=== PATIENT | female | born 1955 | race Two or more races ===

== ENCOUNTER 2020-10-17 06:55 | Outpatient (REF) | payer OTHER, SELFPAY ==
[2020-10-17 11:05] LABS: Alanine Aminotransferase 17 U/L (0-31); Albumin Level 3.8 g/dL (3.5-5.0); Alkaline Phosphatase 94 U/L (39-117); Anion Gap 12 (12-20); Aspartate Amino Transferase 16 U/L (5-31); Bilirubin Total 0.8 mg/dL (0.0-1.0); Blood Urea Nitrogen 18 mg/dL (9-16); Calcium 8.5 mg/dL (8.4-10.2); Carbon Dioxide 27 mmol/L (22-29); Chloride 107 mmol/L (96-108); Cholesterol 156 mg/dL; Estimated Glomerular Filt Rate > 60; Glucose Fasting 98 mg/dL (60-99); HDL Cholesterol 47 mg/dL; LDL Cholesterol Calculated 85 mg/dl; Potassium 3.7 mmol/l (3.3-5.1); Sodium 142 mmol/L (135-145); Total Protein 5.9 g/dL (6.5-8.0); Triglycerides 122 mg/dL
[2020-10-17 11:25] LABS: Thyroid Stimulating Hormone 0.39 uIU/mL (0.32-4.0)
== END 2020-10-17 06:56 | disposition home or self-care (01) ==
LOC: HO.LAB 06:55
PROVIDERS: Visit Provider Internal Medicine
DX: I10 Essential (primary) hypertension (principal); E55.9 Vitamin D deficiency, unspecified; E03.9 Hypothyroidism, unspecified; Z20.828 Contact with and (suspected) exposure to other viral communicable diseases
CPT/HCPCS: 80053; 80061; 82306; 84443; C9803; U0003

== ENCOUNTER 2020-12-15 17:23 | Outpatient (REF) | payer OTHER, SELFPAY ==
[2020-12-15 18:13] LABS: Rheumatoid Factor < 15.0 IU/mL (<15.0)
== END 2020-12-15 17:24 | disposition home or self-care (01) ==
LOC: HO.LAB 17:23
PROVIDERS: PCP Internal Medicine; Visit Provider Nurse Practitioner Family
DX: M19.90 Unspecified osteoarthritis, unspecified site (principal)
CPT/HCPCS: 36415; 86431

== ENCOUNTER 2021-03-01 12:44 | Outpatient (REF) | payer OTHER, SELFPAY ==
--- NOTE | ~2021-03-01 | MM_ITS ---
EXAMINATION: BONE DENSITOMETRY CLINICAL INDICATION: Asymptomatic menopausal state. COMPARISON: This is the patient's baseline examination. TECHNIQUE: Using a [employer] DXA System (software version: 13.1) manufactured by [employer], dual-energy x-ray absorptiometry was performed of the lumbar spine and left hip. The images are of good technical quality. Summary results are attached. FINDINGS: AP SPINE L1-L4: There is mild scoliosis lumbar spine convex right. BMD 1.033 g/cm2, Z-score 0.7, T-score -1.2, osteopenia. LEFT FEMUR, NECK: BMD 0.840 g/cm2, Z-score 0.2, T-score -1.4, osteopenia. LEFT FEMUR, TOTAL: BMD 0.981 g/cm2, Z-score 1.2, T-score -0.2, normal. IDENTIFIED RISK FACTORS: Menopause, hysterectomy, left oophorectomy, secondary osteoporosis. HISTORY OF FRACTURE: None listed. MEDICATIONS: Vitamin D. MM/XR DEXA axial skeleton IMPRESSION: 1. DIAGNOSIS: Osteopenia based on the lowest T-score value of -1.4 in the femoral neck applying World Health Organization criteria. 2. 10-YEAR FRACTURE RISK PREDICTION, FRAX: Major osteoporotic fracture (clinical spine, forearm, hip or shoulder) 4.9%. Hip fracture 0.5%. 3. Treatment Recommendations: NOF guidelines recommend consideration for treatment in postmenopausal women and men age 50 and older presenting with the following: -A hip or vertebral (clinical or morphometric) fracture. -T-score less than or equal to -2.5 at the femoral neck or spine after appropriate evaluation to exclude secondary causes. -Low bone mass at the hip or spine and a 10-year fracture probability by FRAX of greater than or equal to 3% for hip fracture or greater than or equal to 20% for major osteoporotic fracture based on the [place] adapted WHO algorithm. 4. Other Recommendations: All treatment decisions require clinical judgment and consideration of individual patient factors, including patient preferences, comorbidities, previous drug use, risk factors not captured in the FRAX model (e.g. frailty, falls, vitamin D deficiency, increased bone turnover, interval significant decline in bone density) and possible under or overestimation of fracture risk by FRAX. Additional medical evaluation for secondary cause of low bone mineral density may be appropriate. FUTURE SCAN RECOMMENDATION: People with diagnosed cases of osteoporosis or at high risk for fracture should have regular bone mineral density tests. For patients eligible for Medicare, routine testing is allowed once every 2 years. The testing frequency can be increased to one year for patients who have rapidly progressing disease, those who are receiving or discontinuing medical therapy to restore bone mass, or have additional risk factors.
== END 2021-03-01 12:45 | disposition home or self-care (01) ==
LOC: HO.MAMMO 12:44
PROVIDERS: PCP Internal Medicine; Visit Provider Internal Medicine
DX: Z13.820 Encounter for screening for osteoporosis (principal); Z78.0 Asymptomatic menopausal state; Z90.710 Acquired absence of both cervix and uterus; Z90.721 Acquired absence of ovaries, unilateral
CPT/HCPCS: 77080

== ENCOUNTER 2021-04-17 13:32 | Outpatient (AMB) | payer OTHER, SELFPAY ==
--- NOTE | 2021-04-17 13:35 | A.OFFVIS_ITS ---
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: No Accompanied by: Self / Same As Patient Allergies citalopram Allergy (Intermediate, Verified 11/12/25 11:35) hives duloxetine Allergy (Intermediate, Verified 11/12/25 11:35) nausea gabapentin Allergy (Intermediate, Verified 11/12/25 11:35) somnelence latex (LATEX) Allergy (Intermediate, Verified 11/12/25 11:35) RASH lisinopril (LISINOPRIL) Allergy (Intermediate, Verified 11/12/25 11:35) COUGH sulfamethoxazole (From BACTRIM) Allergy (Intermediate, Verified 11/12/25 11:35) RASH tramadol (TRAMADOL) Allergy (Intermediate, Verified 11/12/25 11:35) ITCHY, rash trimethoprim (From BACTRIM) Allergy (Intermediate, Verified 11/12/25 11:35) RASH sertraline Allergy (Verified 11/12/25 11:35) Hives Medication List - Last Reconciled 04/17/21 by Margarito Albarado MD amlodipine 2.5 mg PO DAILY atorvastatin 20 mg PO BEDTIME cyclobenzaprine 10 mg PO BEDTIME 30 days PRN escitalopram oxalate 5 mg PO DAILY irbesartan 300 mg PO DAILY levothyroxine 88 mcg PO DAILY meloxicam 15 mg PO DAILY omeprazole 20 mg PO DAILY 90 days simethicone (Gas Relief (simethicone)) 125 mg PO TID-QID 30 days PRN HPI HPI Dizziness: Details: Patient comes in today complaining of recurrent increased dizziness since yesterday Describes her dizziness as a sensation of the surroundings spinning around her - dizziness is worse when she moves or turns her head or when she changes position Has had problems with vertigo in the past and states that her symptoms are very similar then and now Relates (+) nausea when her dizziness increases but she has been able to keep from throwing up so far States that she got her second dose of the [employer] COVID-19 vaccine last Saturday and is wondering if that has anything to do with her current symptoms Denies any recent cough or cold symptoms Denies any headaches Still has chronic neck pain and states that her neck has been quite stiff and sore lately - continues to follow up with [facility] for her chronic neck pain and low back pain States that she was recommended to undergo injection of her neck by [facility] to help control her neck pain but she is still thinking about whether she wants to start the injections or not Denies any chest pains, no SOB No abdominal pain and no change in bowel habits noted Also needs her Amlodipine Rx refilled Would also like to know how her BMD done a couple of months ago came out [facility] Medical History (Updated 11/12/25 @ 12:45 by Bekah Quezada CNP) Bloating Dysphagia Chest pain Moderate recurrent major depression Chronic constipation Dysfunction of right rotator cuff Pain of right clavicle Overweight (BMI 25.0-29.9) Osteopenia Benign paroxysmal vertigo Postmenopausal Arthritis GERD (gastroesophageal reflux disease) Essential hypertension Anxiety Acquired hypothyroidism Pure hypercholesterolemia Surgical History S/P rotator cuff repair Cataract History of lumbar surgery History of thyroidectomy S/P FIORDALIZA (total abdominal hysterectomy) History of hemicolectomy Rectocele Family History Father No problems noted. Mother Diabetes Stroke Hypertension Brother Lung cancer Social History Housing: Apartment Alcohol intake: never Patient Tobacco Use Status: Never used Tobacco e-Cigarette/Vaping Use: Never Used Second Hand Smoke Exposure: No service: No Current occupational status: employed Current occupation: [employer] Current occupational exposures/hazards: No Cognitive needs: No Hearing needs: No Vision needs: Yes Review of Systems Const Denies chills, Reports fatigue, Denies fever(s) and Denies headache(s) ENT Reports vertigo, Reports dizziness (worse with change in position), Denies headache(s), Denies nasal congestion, Reports neck pain (chronic), Denies odynophagia, Denies sinus pain and Denies sore throat Card Denies chest pain, Denies palpitations and Denies dyspnea Resp Denies cough and Denies dyspnea GI Denies abdominal pain, Denies constipation, Denies heartburn, Denies diarrhea, Reports nausea (associated with dizziness) and Denies odynophagia Denies nocturia and Denies dysuria Musc Reports back pain (over the lumbar spine - chronic) and Reports neck pain (chronic) Neuro Reports vertigo, Reports dizziness (worse with change in position) and Denies headache(s) Endo Reports fatigue and Denies palpitations Physical Exam Vital Signs: Last Vital Signs Temp 96.7 F L 04/17/21 13:37 Pulse 60 04/17/21 13:37 BP 142/80 H 04/17/21 13:37 Pulse Ox 98 04/17/21 13:37 Oxygen Delivery Method Room Air 04/17/21 13:37 BMI result Body Mass Index 27.1 Const General: no acute distress and alert HENMT Ears: TM's normal bilaterally Throat: Yes posterior oropharynx normal and Yes tonsils normal (no TP congestion noted) Neck Neck: Yes no lymphadenopathy and Yes tender (over the cervical spine and paraspinal areas bilaterally) Resp Auscultation: clear to auscultation bilaterally, no rales and no wheezes Cardio Rate: regular rate Rhythm: regular rhythm Heart sounds: no murmurs GI Palpation (GI): Soft to palpation, nontender and No hepatosplenomegaly present Back/Spine/Pelvis Thoracic/Lumbar Spine: lumbar spinal tenderness Extrem General: Yes no clubbing, cyanosis or edema Assessment & Plan Assessment & Plan (1) Benign paroxysmal vertigo: Code(s): H81.10 - Benign paroxysmal vertigo, unspecified ear Category: Medical Qualifiers: Laterality: bilateral Qualified Code(s): H81.13 - Benign paroxysmal vertigo, bilateral Orders: Orders PT Evaluation and Treatment 04/17/21 Medications: New meclizine 25 mg PO TID PRN 30 tabs 1RF dizziness 10 days (2) Acquired hypothyroidism: Code(s): E03.9 - Hypothyroidism, unspecified Category: Medical Orders: Orders Thyroid Stimulating Hormone 04/17/21 Free T4 (Free Thyroxine) 04/17/21 (3) Essential hypertension: Code(s): I10 - Essential (primary) hypertension Category: Medical Medications: Changed From amlodipine 2.5 mg PO DAILY To amlodipine 2.5 mg PO DAILY 90 tabs 0RF 90 days (4) Osteopenia: Code(s): M85.80 - Other specified disorders of bone density and structure, unspecified site Category: Medical (5) Overweight (BMI 25.0-29.9): Code(s): E66.3 - Overweight Category: Medical Coding Level of Care Code Est Pt Level 4 (03362) Diagnoses Benign paroxysmal vertigo of both ears H81.13 Laterality: bilateral Acquired hypothyroidism E03.9 Essential hypertension I10 Osteopenia M85.80 Overweight (BMI 25.0-29.9) E66.3 Thrive Questionnaire Thrive Questionnaire I am a: Patient What is your living situation today?: I have a steady place to live Within the past 12 months, did the food you bought not last and you didn't have the money to get more?: Never true Do you have trouble paying for medicines?: No Do you have trouble getting transportation to medical appointments?: No Do you have trouble paying your heating and electricity bill?: No Do you have trouble taking care of your child, family member or friend?: No Do you have trouble with day-to-day activities such as bathing, preparing meals, shopping, managing finances, etc.?: No Are you currently unemployed and looking for a job?: No Are you interested in more education?: No AUDIT C Alcohol Use Questionnaire (AUDIT-C) 1. How often do you have a drink containing alcohol?: Never 3. How often do you have six or more drinks on one occasion?: Never Total Score: 0 PHQ-9 Over the last 2 weeks, how often have you been bothered by any of the following problems? 1. Little interest or pleasure in doing things: not at all 2. Feeling down, depressed, or hopeless: not at all 3. Trouble falling or staying asleep, or sleeping too much: not at all 4. Feeling tired or having little energy: not at all 5. Poor appetite or overeating: not at all 6. Feeling bad about yourself - or that you are a failure or have let yourself or your family down: not at all 7. Trouble concentrating on things, such as reading the newspaper or watching television: not at all 8. Moving or speaking so slowly that other people could have noticed. Or the opposite - being so fidgety or restless that you have been moving around a lot more than usual: not at all 9. Thoughts that you would be better off or of hurting yourself in some way: not at all Total score: 0 10. If you checked off any problems, how difficult have those problems made it for you to do your work, take care of things at home, or get along with other people?: not difficult at all 0-4 None-Minimal, 5-9 Mild, 10-14 Moderate, 15-19 Moderately Severe, 20-27 Severe Source: Developed by Drs. Valdemar Estes, Joanie Oreilly, Charles Huff and colleagues, with an educational kj from [employer]
[2021-04-17 13:37] VITALS: BP 142/80; PULSE 60; TEMP 35.9; O2SAT 98; BMI 27.1
== END 2021-04-17 14:18 | disposition home or self-care (01) ==
PROVIDERS: PCP Internal Medicine; Visit Provider Internal Medicine
DX: H81.13 Benign paroxysmal vertigo, bilateral (principal); E03.9 Hypothyroidism, unspecified; I10 Essential (primary) hypertension; M85.80 Other specified disorders of bone density and structure, unspecified site; E66.3 Overweight
CPT/HCPCS: 99499

== ENCOUNTER 2021-04-17 14:24 | Outpatient (REF) | payer OTHER, SELFPAY ==
[2021-04-17 15:42] LABS: Free T4 (Free Thyroxine) 1.23 ng/dL (0.71-1.85); Thyroid Stimulating Hormone 0.44 uIU/mL (0.32-4.0)
== END 2021-04-17 14:25 | disposition home or self-care (01) ==
LOC: HO.LAB 14:24
PROVIDERS: PCP Internal Medicine; Visit Provider Internal Medicine
DX: E03.9 Hypothyroidism, unspecified (principal)
CPT/HCPCS: 36415; 84439; 84443

== ENCOUNTER 2021-06-23 06:35 | Outpatient (REF) | payer OTHER, SELFPAY ==
[2021-06-23 08:01] LABS: Alanine Aminotransferase 18 U/L (0-31); Alkaline Phosphatase 111 U/L (39-117); Anion Gap 11 (12-20); Aspartate Amino Transferase 18 U/L (5-31); Bilirubin Total 0.7 mg/dL (0.0-1.0); Blood Urea Nitrogen 17 mg/dL (9-16); Calcium 9.2 mg/dL (8.4-10.2); Carbon Dioxide 27 mmol/L (22-29); Chloride 110 mmol/L (96-108); Cholesterol 176 mg/dL; Estimated Glomerular Filt Rate > 60; Glucose Fasting 106 mg/dL (60-99); HDL Cholesterol 50 mg/dL; LDL Cholesterol Calculated 97 mg/dl; Potassium 3.9 mmol/L (3.3-5.1); Sodium 144 mmol/L (135-145); Total Protein 6.2 g/dL (6.5-8.0); Triglycerides 148 mg/dL
[2021-06-23 08:24] LABS: TSH reflex Free T4 0.75 uIU/mL (0.32-4.0)
[2021-06-29 12:30] LABS: Vitamin D 25-OH, D2 <4 ng/mL; Vitamin D 25-OH, D3 48 ng/mL; Vitamin D 25-OH, Total 48 ng/mL (30-100)
== END 2021-06-23 06:36 | disposition home or self-care (01) ==
LOC: HO.LAB 06:35
PROVIDERS: PCP Internal Medicine; Visit Provider Internal Medicine
DX: I10 Essential (primary) hypertension (principal); E78.5 Hyperlipidemia, unspecified; E03.9 Hypothyroidism, unspecified; E55.9 Vitamin D deficiency, unspecified
CPT/HCPCS: 36415; 80053; 80061; 82306; 84443

== ENCOUNTER 2021-06-27 17:46 | Outpatient (REF) | payer OTHER, SELFPAY ==
--- NOTE | ~2021-06-27 | XR_ITS ---
EXAMINATION: XR CLAVICLE, RIGHT CLINICAL INFORMATION: Pain. COMPARISON: 03/26/2019 TECHNIQUE: Two views of the right clavicle. FINDINGS: There is no evidence of acute fracture or dislocation of the right clavicle. No significant degenerative change of the acromioclavicular joint is identified. There is some spurring about the acromion. No widening of the coracoclavicular space. No destructive bony lesion identified. XR/XR clavicle RT IMPRESSION: No significant bony abnormality of the right clavicle.
== END 2021-06-27 17:47 | disposition home or self-care (01) ==
LOC: HO.XRAY 17:46
PROVIDERS: Visit Provider Internal Medicine
DX: M89.8X1 Other specified disorders of bone, shoulder (principal)
CPT/HCPCS: 73000

== ENCOUNTER 2021-07-19 07:55 | Outpatient (REF) | payer OTHER, SELFPAY ==
--- NOTE | ~2021-07-19 | US_ITS ---
EXAMINATION: US THYROID CLINICAL INFORMATION: Thyroidectomy 4 years ago. COMPARISON: None TECHNIQUE: Linear transducer guillory-scale and color Doppler examination with attention to the region of the thyroid. FINDINGS: SIZE: Measurements of the thyroid lobes and nodules are given in sagittal, anteroposterior and transverse dimensions respectively. Right Thyroid Lobe: Removed. Left Thyroid Lobe: Removed. Estimated total number of nodules greater than or equal to 1 cm: 0. 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 US/US thyroid IMPRESSION: Status post thyroidectomy. No residual thyroid tissue or recurrent nodularity.
== END 2021-07-19 07:56 | disposition home or self-care (01) ==
LOC: HO.US 07:55
PROVIDERS: Visit Provider Internal Medicine
DX: E03.9 Hypothyroidism, unspecified (principal)
CPT/HCPCS: 76536

== ENCOUNTER 2021-11-03 07:14 | Outpatient (REF) | payer OTHER, SELFPAY ==
[2021-11-03 08:38] LABS: Alanine Aminotransferase 24 U/L (0-31); Albumin Level 3.9 g/dL (3.5-5.0); Alkaline Phosphatase 104 U/L (39-117); Anion Gap 11 (12-20); Aspartate Amino Transferase 19 U/L (5-31); Bilirubin Total 0.7 mg/dL (0.0-1.0); Blood Urea Nitrogen 21 mg/dL (9-16); Calcium 8.9 mg/dL (8.4-10.2); Carbon Dioxide 28 mmol/L (22-29); Chloride 108 mmol/L (96-108); Cholesterol 177 mg/dL; Estimated Glomerular Filt Rate > 60; Glucose Fasting 104 mg/dL (60-99); HDL Cholesterol 46 mg/dL; LDL Cholesterol Calculated 93 mg/dl; Potassium 3.8 mmol/L (3.3-5.1); Sodium 143 mmol/L (135-145); Total Protein 6.1 g/dL (6.5-8.0); Triglycerides 194 mg/dL
[2021-11-03 08:44] LABS: TSH reflex Free T4 4.94 uIU/mL (0.32-4.0)
[2021-11-03 08:52] LABS: Thyroid Stimulating Hormone 4.85 uIU/mL (0.32-4.0)
[2021-11-03 09:16] LABS: Free T4 (Free Thyroxine) 0.91 ng/dL (0.71-1.85)
[2021-11-08 12:42] LABS: Vitamin D 25-OH, D2 <4 ng/mL; Vitamin D 25-OH, D3 39 ng/mL; Vitamin D 25-OH, Total 39 ng/mL (30-100)
== END 2021-11-03 07:15 | disposition home or self-care (01) ==
LOC: HO.LAB 07:14
PROVIDERS: PCP Internal Medicine; Visit Provider Internal Medicine
DX: I10 Essential (primary) hypertension (principal); E03.9 Hypothyroidism, unspecified; E55.9 Vitamin D deficiency, unspecified
CPT/HCPCS: 36415; 80053; 80061; 82306; 84439; 84443

== ENCOUNTER 2022-03-30 06:12 | Outpatient (REF) | payer OTHER, SELFPAY ==
[2022-03-30 07:56] LABS: Alanine Aminotransferase 22 U/L (0-31); Albumin Level 3.9 g/dL (3.5-5.0); Alkaline Phosphatase 107 U/L (39-117); Anion Gap 9 (12-20); Aspartate Amino Transferase 25 U/L (5-31); Bilirubin Total 0.7 mg/dL (0.0-1.0); Blood Urea Nitrogen 15 mg/dL (9-16); Calcium 9.3 mg/dL (8.4-10.2); Carbon Dioxide 31 mmol/L (22-29); Chloride 106 mmol/L (96-108); Cholesterol 161 mg/dL; Estimated Glomerular Filt Rate > 60; Glucose Fasting 92 mg/dL (60-99); HDL Cholesterol 49 mg/dL; LDL Cholesterol Calculated 86 mg/dl; Potassium 3.9 mmol/L (3.3-5.1); Sodium 142 mmol/L (135-145); Total Protein 6.1 g/dL (6.5-8.0); Triglycerides 131 mg/dL
[2022-03-30 08:11] LABS: Thyroid Stimulating Hormone 0.65 uIU/mL (0.32-4.0)
== END 2022-03-30 06:13 | disposition home or self-care (01) ==
LOC: HO.LAB 06:12
PROVIDERS: PCP Internal Medicine; Visit Provider Internal Medicine
DX: E78.5 Hyperlipidemia, unspecified (principal); E78.00 Pure hypercholesterolemia, unspecified; E03.9 Hypothyroidism, unspecified
CPT/HCPCS: 36415; 80053; 80061; 84443

== ENCOUNTER 2022-07-16 06:02 | Outpatient (REF) | payer OTHER, SELFPAY ==
[2022-07-16 08:30] LABS: Alanine Aminotransferase 27 U/L (0-31); Albumin Level 3.9 g/dL (3.5-5.0); Alkaline Phosphatase 120 U/L (39-117); Anion Gap 14 (12-20); Aspartate Amino Transferase 18 U/L (5-31); Bilirubin Total 0.6 mg/dL (0.0-1.0); Blood Urea Nitrogen 18 mg/dL (9-16); Carbon Dioxide 26 mmol/L (22-29); Chloride 107 mmol/L (96-108); Cholesterol 172 mg/dL; Estimated Glomerular Filt Rate > 60; Glucose Fasting 96 mg/dL (60-99); HDL Cholesterol 53 mg/dL; LDL Cholesterol Calculated 89 mg/dl; Potassium 4.1 mmol/L (3.3-5.1); Sodium 143 mmol/L (135-145); Total Protein 6.4 g/dL (6.5-8.0); Triglycerides 151 mg/dL
[2022-07-16 08:52] LABS: Thyroid Stimulating Hormone 0.27 uIU/mL (0.32-4.0)
== END 2022-07-16 06:03 | disposition home or self-care (01) ==
LOC: HO.LAB 06:02
PROVIDERS: PCP Internal Medicine; Visit Provider Internal Medicine
DX: E78.00 Pure hypercholesterolemia, unspecified (principal); E03.9 Hypothyroidism, unspecified; E78.5 Hyperlipidemia, unspecified
CPT/HCPCS: 36415; 80053; 80061; 84443

== ENCOUNTER 2022-09-11 08:03 | Outpatient (REF) | payer OTHER, SELFPAY ==
--- NOTE | ~2022-09-11 | MR_ITS ---
EXAMINATION: MR BRAIN WITHOUT CONTRAST CLINICAL INFORMATION: 67-year-old with self-reported head pressure and right arm numbness. History of Graves' disease. Headache, unspecified. COMPARISON: 01/28/2020 CT brain TECHNIQUE: Multiplanar multisequence MR imaging of the brain was done without IV contrast. FINDINGS: Brain Volume: Within normal limits within the limitations of qualitative assessment. Structural: Partially empty sella, which is an anatomic variant. Brain and Meninges: DWI sequence demonstrates no restricted diffusion to suggest acute or subacute cerebral ischemia. Scattered patchy zones of FLAIR/T2 signal hyperintensity are noted in the subcortical and deeper white matter of both cerebral hemispheres which are nonspecific findings but likely reflect foci of chronic ischemic microangiopathy statistically. Cannot exclude superimposed foci of migraine-associated vasculopathy with the appropriate clinical history. Gradient refocused imaging demonstrates no abnormal magnetic susceptibility artifact to suggest hemorrhage, hemosiderin staining or abnormal mineralization. No extra-axial fluid collections, space-occupying process or mass effect are identified. Ventricles and Subarachnoid Spaces: The ventricular system and subarachnoid spaces are within normal limits without hydrocephalus. Orbital Structures: Bilateral proptosis is noted, which is consistent with the self-reported history of Graves' disease. Vascular: Signal voids are noted in the visualized major intracranial vessels. Osseous Structures, Sinuses/Mastoids, Extracranial Soft Tissues: Minor mucosal thickening in the ethmoid complex noted. Osseous marrow signal intensity appears within normal limits. The visualized extracranial soft tissue structures are within normal limits. MR/MR head/brain wo con IMPRESSION: 1. Bilateral supratentorial white matter T2 hyperintensities are noted, which could reflect chronic ischemic microangiopathy. Migraine-associated vasculopathy cannot be excluded superimposed on these findings. No acute intracranial process. 2. Bilateral proptosis noted consistent with the self-reported history of Graves' disease.
== END 2022-09-11 08:04 | disposition home or self-care (01) ==
LOC: HO.MRI 08:03
PROVIDERS: Visit Provider Internal Medicine
DX: R51.9 Headache, unspecified (principal)
CPT/HCPCS: 70551

== ENCOUNTER 2022-10-24 13:55 | Outpatient (REF) | payer OTHER, SELFPAY ==
--- NOTE | 2022-10-24 08:45 | EMG_ITS ---
Please see scanned EMG / Nerve Conduction Report. MTDD
== END 2022-10-24 13:56 | disposition home or self-care (01) ==
LOC: HO.NEURO 13:55
PROVIDERS: Visit Provider Internal Medicine
DX: R20.0 Anesthesia of skin (principal); R20.2 Paresthesia of skin
CPT/HCPCS: 95885; 95910

== ENCOUNTER 2022-11-01 07:38 | Outpatient (REF) | payer OTHER, SELFPAY ==
[2022-11-01 09:25] LABS: Alanine Aminotransferase 27 U/L (0-31); Alkaline Phosphatase 96 U/L (39-117); Aspartate Amino Transferase 22 U/L (5-31); Bilirubin Total 0.6 mg/dL (0.0-1.0); Blood Urea Nitrogen 21 mg/dL (9-16); Calcium 9.2 mg/dL (8.4-10.2); Cholesterol 192 mg/dL; Estimated Glomerular Filt Rate > 60; Glucose Fasting 102 mg/dL (60-99); HDL Cholesterol 46 mg/dL; LDL Cholesterol Calculated 110 mg/dl; Thyroid Stimulating Hormone 0.82 uIU/mL (0.32-4.0); Total Protein 6.2 g/dL (6.5-8.0); Triglycerides 183 mg/dL
[2022-11-01 09:35] LABS: Anion Gap 14 (12-20); Carbon Dioxide 30 mmol/L (22-29); Chloride 102 mmol/L (96-108); Potassium 3.5 mmol/L (3.3-5.1); Sodium 142 mmol/L (135-145)
== END 2022-11-01 07:39 | disposition home or self-care (01) ==
LOC: HO.LAB 07:38
PROVIDERS: PCP Internal Medicine; Visit Provider Internal Medicine
DX: E78.00 Pure hypercholesterolemia, unspecified (principal); E78.5 Hyperlipidemia, unspecified; E03.9 Hypothyroidism, unspecified
CPT/HCPCS: 36415; 80053; 80061; 84443

== ENCOUNTER 2022-11-05 10:33 | Outpatient (REF) | payer OTHER, SELFPAY ==
--- NOTE | 2022-11-05 10:43 | ECG_ITS ---
Test Reason : PREOP Blood Pressure : / mmHG Vent. Rate : 047 BPM Atrial Rate : 047 BPM P-R Int : 198 ms QRS Dur : 086 ms QT Int : 466 ms P-R-T Axes : 057 010 016 degrees QTc Int : 412 ms Sinus bradycardia Otherwise normal ECG When compared with ECG of 28-JAN-2020 19:29, No significant change was found Referred By: Jenni Lmabert Electronically Signed By:JL ANDRE MD
[2022-11-05 10:45] LABS: MANUAL DIFF FLAG NO
[2022-11-05 12:10] LABS: Basophils Absolute Auto 0.1 X10*3/uL (0.0-0.2); Basophils Percent Auto 1.2 % (0-2); Eosinophils Absolute Auto 0.2 X10*3/uL (0.0-0.4); Eosinophils Percent Auto 2.8 % (0-4); Hematocrit 36.9 % (37.0-47.0); Hemoglobin 12.7 g/dl (12.0-16.0); Imm Gran Abs Auto 0.02 X10*3/uL (0.00-0.03); Imm Gran Pct Auto 0.3 % (0.0-0.4); Lymphocytes Absolute Auto 2.4 X10*3/uL (1.2-4.9); Lymphocytes Percent Auto 31.8 % (20-40); Mean Corpuscular HGB Conc 34.4 g/dl (31.0-35.0); Mean Corpuscular Hemoglobin 30.4 pg (27.0-33.0); Mean Corpuscular Volume 88.3 fL (80.0-98.0); Mean Platelet Volume 11.9 fL (9.4-12.3); Monocytes Absolute Auto 0.6 X10*3/uL (0.1-1.2); Monocytes Percent Auto 8.5 % (2-11); Neutrophils Absolute Auto 4.2 x10*3/uL (2.0-8.3); Neutrophils Percent Auto 55.4 % (45-73); Platelet Count 276 X10*3/uL (160-400); Red Blood Count 4.18 X10*6/uL (4.20-5.50); Red Cell Distribution Width 12.6 % (11.0-16.0); White Blood Count 7.5 X10*3/uL (4.8-10.8)
[2022-11-05 12:14] LABS: Prothrombin Time 11.9 SEC (10.0-13.1)
== END 2022-11-05 10:34 | disposition home or self-care (01) ==
LOC: HO.LAB 10:33
PROVIDERS: PCP Internal Medicine; Visit Provider Nurse Practitioner Family
DX: Z01.818 Encounter for other preprocedural examination (principal); Z13.0 Encounter for screening for diseases of the blood and blood-forming organs and certain disorders involving the immune mechanism
CPT/HCPCS: 36415; 85025; 85610; 93005

== ENCOUNTER 2022-12-12 09:53 | Outpatient (REF) | payer OTHER, SELFPAY ==
--- NOTE | ~2022-12-12 | US_ITS ---
EXAMINATION: US LOWER EXTREMITY VENOUS (REFLUX EXAM), BILATERAL CLINICAL INDICATION: Varicose veins COMPARISON: None. TECHNIQUE: Color flow triplex imaging and compression Doppler was performed to evaluate both the deep and the superficial systems bilaterally. To evaluate the superficial system, the examination was performed in the upright position. Color-flow Doppler ultrasound and compression ultrasound were utilized. In addition, maneuvers were utilized to demonstrate reflux. FINDINGS: 1. DEEP VENOUS ULTRASOUND OF THE RIGHT LOWER EXTREMITY: Common Femoral Vein: Compressible, normal respiratory variation and augmented flow. Femoral Vein: Compressible, normal color flow and augmentation. Popliteal Vein: Compressible, normal augmentation. Deep Reflux: There is no evidence of reflux in the deep system in either the common femoral vein or the popliteal vein. There is no evidence of a Nelson's cyst. 2. SUPERFICIAL ULTRASOUND WITH DOPPLER OF RIGHT LOWER EXTREMITY: GREAT SAPHENOUS VEIN: Saphenofemoral Junction: 0.6 cm; Reflux: 0 ms Proximal Thigh: 0.4 cm; Reflux: 0 ms Mid Thigh: 0.2 cm; Reflux: 0 ms Above Knee: 0.2 cm; Reflux: 0 ms At Knee: 0.2 cm; Reflux: 0 ms Below Knee: 0.2 cm; Reflux: 0 ms Mid Calf: 0.2 cm; Reflux: 0 ms Ankle: 0.2 cm; Reflux: 0 ms DUPLICATED MEDIAL GREAT SAPHENOUS VEIN: Diameter: None Imaged Reflux: NA DUPLICATED LATERAL GREAT SAPHENOUS VEIN: Proximal: 0.5 cm; Reflux: 0 ms Distal: 0.2 cm; Reflux: 0 ms SMALL SAPHENOUS VEIN: Proximal: 0.2 cm; Reflux: 0 ms Distal: 0.2 cm; Reflux: 0 ms VEIN OF GIACOMINI: None Imaged. PERFORATORS: Location: None Imaged Size: NA Reflux: NA VARICOSITIES: Location: None Imaged Size: NA Reflux: NA 3. DEEP VENOUS ULTRASOUND OF THE LEFT LOWER EXTREMITY: Common Femoral Vein: Compressible, normal respiratory variation and augmented flow. Femoral Vein: Compressible, normal color flow and augmentation. Popliteal Vein: Compressible, normal augmentation. Deep Reflux: Reflux 556ms in the common femoral vein, reflux 456ms in the popliteal vein There is no evidence of a Nelson's cyst. 4. SUPERFICIAL ULTRASOUND WITH DOPPLER OF LEFT LOWER EXTREMITY: GREAT SAPHENOUS VEIN: Saphenofemoral Junction: 0.7 cm; Reflux: 0 ms Proximal Thigh: 0.4 cm; Reflux: 0 ms Mid Thigh: 0.2 cm; Reflux: 1176 ms Above Knee: 0.2 cm; Reflux: 0 ms At Knee: 0.2 cm; Reflux: 0 ms Below Knee: 0.2 cm; Reflux: 0 ms Mid Calf: 0.2 cm; Reflux: 0 ms Ankle: 0.2 cm; Reflux: 0 ms DUPLICATED MEDIAL GREAT SAPHENOUS VEIN: Diameter: None Imaged Reflux: NA DUPLICATED LATERAL GREAT SAPHENOUS VEIN: Proximal: 0.3 cm; Reflux: 0 ms Distal: 0.2 cm; Reflux: 0 ms SMALL SAPHENOUS VEIN: Proximal: 0.2 cm; Reflux: 0 ms Distal: 0.2 cm; Reflux: 0 ms VEIN OF GIACOMINI: None Imaged. PERFORATORS: Location: None Imaged Size: NA Reflux: NA VARICOSITIES: Location: None Imaged Size: NA Reflux: NA US/US venous duplex LE BI IMPRESSION: 1. No evidence of DVT in the bilateral lower extremities. 2. No reflux in the right great saphenous vein. 3. Reflux in the left great saphenous vein in the mid thigh.
== END 2022-12-12 09:54 | disposition home or self-care (01) ==
LOC: HO.US 09:53
PROVIDERS: Visit Provider Surgery Vascular Surgery
DX: I83.11 Varicose veins of right lower extremity with inflammation (principal)
CPT/HCPCS: 93970

== ENCOUNTER → 2022-12-20 08:52 | Outpatient (BNVA) | payer OTHER, SELFPAY | PROVIDERS: PCP Internal Medicine; Visit Provider Surgery Vascular Surgery | DX: Z13.89 Encounter for screening for other disorder (principal) ==

== ENCOUNTER → 2022-12-28 12:51 | Outpatient (BNVA) | payer OTHER, SELFPAY | PROVIDERS: PCP Internal Medicine; Visit Provider Nurse Practitioner Family | DX: Z13.89 Encounter for screening for other disorder (principal) ==

== ENCOUNTER 2023-03-12 16:48 | Outpatient (REF) | payer OTHER, SELFPAY ==
--- NOTE | ~2023-03-12 | XR_ITS ---
EXAMINATION: XR THORACIC SPINE XR CERVICAL SPINE CLINICAL INFORMATION: Cervicalgia. COMPARISON: Cervical spine 09/10/2019. TECHNIQUE: Thoracic spine 3 views and cervical spine 3 views. FINDINGS: THORACIC SPINE: There is mild smooth S-shaped scoliosis of dorsolumbar spine with mild dextroscoliosis of thoracic spine. The vertebral heights, alignment and disc heights are normal. There is no visible acute fracture, dislocation or subluxation seen. There is no lytic or sclerotic process seen. The paravertebral soft tissues are normal. CERVICAL SPINE: There is normal cervical lordosis. The vertebral heights and alignment are normal. Mild loss of C5-C6 and C6-C7 disc heights is noted. Mild ventral cervical spondylosis C4-C5, C5-C6 and C6-C7 disc levels is noted. No visible acute fracture, dislocation or subluxation seen. Extensive postsurgical changes are seen in the anterior lower neck. XR/XR cervical spine 2V IMPRESSION: 1. Mild smooth S-shaped scoliosis of dorsolumbar spine. No visible acute fracture, dislocation or subluxation seen in dorsal spine. 2. Mild degenerative disc changes C5-C6 and C6-C7 disc levels with ventral cervical spondylosis.
--- NOTE | ~2023-03-12 | XR_ITS ---
EXAMINATION: XR THORACIC SPINE XR CERVICAL SPINE CLINICAL INFORMATION: Cervicalgia. COMPARISON: Cervical spine 09/10/2019. TECHNIQUE: Thoracic spine 3 views and cervical spine 3 views. FINDINGS: THORACIC SPINE: There is mild smooth S-shaped scoliosis of dorsolumbar spine with mild dextroscoliosis of thoracic spine. The vertebral heights, alignment and disc heights are normal. There is no visible acute fracture, dislocation or subluxation seen. There is no lytic or sclerotic process seen. The paravertebral soft tissues are normal. CERVICAL SPINE: There is normal cervical lordosis. The vertebral heights and alignment are normal. Mild loss of C5-C6 and C6-C7 disc heights is noted. Mild ventral cervical spondylosis C4-C5, C5-C6 and C6-C7 disc levels is noted. No visible acute fracture, dislocation or subluxation seen. Extensive postsurgical changes are seen in the anterior lower neck. XR/XR thoracic spine 2V IMPRESSION: 1. Mild smooth S-shaped scoliosis of dorsolumbar spine. No visible acute fracture, dislocation or subluxation seen in dorsal spine. 2. Mild degenerative disc changes C5-C6 and C6-C7 disc levels with ventral cervical spondylosis.
== END 2023-03-12 16:49 | disposition home or self-care (01) ==
LOC: HO.XRAY 16:48
PROVIDERS: PCP Internal Medicine; Visit Provider Internal Medicine
DX: M54.2 Cervicalgia (principal); M54.6 Pain in thoracic spine
CPT/HCPCS: 72040; 72070

== ENCOUNTER 2023-04-26 06:34 | Outpatient (REF) | payer OTHER, SELFPAY ==
[2023-04-26 08:14] LABS: Alanine Aminotransferase 30 U/L (0-31); Albumin Level 4.1 g/dL (3.5-5.0); Alkaline Phosphatase 92 U/L (39-117); Anion Gap 13 (12-20); Aspartate Amino Transferase 22 U/L (5-31); Bilirubin Total 1.3 mg/dL (0.0-1.0); Blood Urea Nitrogen 20 mg/dL (9-16); Calcium 9.7 mg/dL (8.4-10.2); Carbon Dioxide 31 mmol/L (22-29); Chloride 100 mmol/L (96-108); Cholesterol 195 mg/dL; Estimated Glomerular Filt Rate > 60; Glucose Fasting 91 mg/dL (60-99); HDL Cholesterol 56 mg/dL; LDL Cholesterol Calculated 110 mg/dl; Potassium 3.7 mmol/L (3.3-5.1); Sodium 140 mmol/L (135-145); Total Protein 6.6 g/dL (6.5-8.0); Triglycerides 146 mg/dL
[2023-04-26 08:16] LABS: Thyroid Stimulating Hormone 0.89 uIU/mL (0.32-4.0); Vitamin D 25-OH Total 67.1 ng/mL (>30)
== END 2023-04-26 06:35 | disposition home or self-care (01) ==
LOC: HO.LAB 06:34
PROVIDERS: PCP Internal Medicine; Visit Provider Internal Medicine
DX: Z00.00 Encounter for general adult medical examination without abnormal findings (principal); E03.9 Hypothyroidism, unspecified; E55.9 Vitamin D deficiency, unspecified; E78.5 Hyperlipidemia, unspecified
CPT/HCPCS: 36415; 80053; 80061; 82306; 84443

== ENCOUNTER 2023-05-01 13:01 | Outpatient (REF) | payer OTHER, SELFPAY ==
--- NOTE | ~2023-05-01 | XR_ITS ---
EXAMINATION: XR SHOULDER, RIGHT CLINICAL INFORMATION: Right shoulder pain COMPARISON: Right shoulder x-rays of 03/26/2019 TECHNIQUE: AP external rotation, Grashey, scapular Y, and axillary views of the right shoulder. FINDINGS: Acromioclavicular and glenohumeral joint alignments are maintained. There is no evidence of acute fracture or dislocation. Osseous mineralization is normal. Mild arthritic changes are noted at the acromioclavicular articulation. No significant arthritic changes are noted in the glenohumeral articulation. No evidence of soft tissue calcifications. The visualized thorax is unremarkable. XR/XR shoulder RT min 2V IMPRESSION: Mild arthritic changes at the right acromioclavicular articulation. No acute osseous abnormality.
== END 2023-05-01 13:02 | disposition home or self-care (01) ==
LOC: HO.XRAY 13:01
PROVIDERS: PCP Internal Medicine; Visit Provider Internal Medicine
DX: M25.511 Pain in right shoulder (principal)
CPT/HCPCS: 73030

== ENCOUNTER 2023-06-10 10:45 | Outpatient (AMB) | payer OTHER, SELFPAY ==
--- NOTE | 2023-06-10 11:00 | MHC.OFFVIS ---
Intake Intake Visit Reasons: SEWING TRIMMER- Pain in right shoulder Intake Note: Sandy is a 68 year old right hand dominant female who presents today with complaints of right shoulder pain. Patient reports that she has had ongoing pain in the shoulder for years now. She reports that she has had injection in the past with good relief but is hesitant to proceed with another. She takes aleve and meloxicam for her pain which helps mildly. She explains that all activity with the right arm are aggravating her pain. She feels that her pain is now radiating up the neck and along her trapezius. Allergies duloxetine Allergy (Intermediate, Verified 04/30/23 17:39) nausea gabapentin Allergy (Intermediate, Verified 04/30/23 17:39) somnelence latex [LATEX] Allergy (Intermediate, Verified 04/30/23 17:39) RASH lisinopril [LISINOPRIL] Allergy (Intermediate, Verified 04/30/23 17:39) COUGH sulfamethoxazole [From BACTRIM] Allergy (Intermediate, Verified 04/30/23 17:39) RASH tramadol [TRAMADOL] Allergy (Intermediate, Verified 04/30/23 17:39) ITCHY, rash trimethoprim [From BACTRIM] Allergy (Intermediate, Verified 04/30/23 17:39) RASH sertraline Allergy (Verified 06/10/23 11:05) Hives HPI SEWING TRIMMER- Pain in right shoulder HPI Details Sandy is a 68 year old woman who presents with complaints of several years ongoing right shoulder pain. She has pain with use of her right arm, worse with overhead activity and at night. She now feels like her pain is radiating into her neck, and she feels some numbness in her fingertips with activities such as washing her hair. She finds mild relief from NSAIDs, and had good relief in the past from injections. 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 [facility] Medical History (Updated 06/10/23 @ 11:19 by Humza Celaya) Acquired hypothyroidism Anxiety Arthritis Benign paroxysmal vertigo Essential hypertension GERD (gastroesophageal reflux disease) Osteopenia Overweight (BMI 25.0-29.9) Pain of right clavicle Postmenopausal Pure hypercholesterolemia Surgical History Cataract History of hemicolectomy History of lumbar surgery History of thyroidectomy Rectocele S/P FIORDALIZA (total abdominal hysterectomy) Family History Father No problems noted. Mother Diabetes Stroke Hypertension Brother Lung cancer Social History Housing: Apartment Alcohol intake: never Patient Tobacco Use Status: Never used Tobacco e-Cigarette/Vaping Use: Never Used Second Hand Smoke Exposure: No service: No Current occupational status: employed Current occupational exposures/hazards: No Cognitive needs: No Hearing needs: No Vision needs: Yes Review of Systems Const All systems reviewed & are unremarkable except as noted in HPI and below Physical Exam Const General: no acute distress, alert and awake Orientation/consciousness: patient oriented x3 HEENT Head: Yes normocephalic and Yes atraumatic Eyes EOM: EOMs intact bilaterally Resp Effort & Inspection: normal respiratory effort and able to speak in complete sentences Cardio Jugular venous distension: no JVD Skin General skin exam: turgor normal Rashes: no rashes Neuro General: patient oriented x3 Extrem Other: Right Shoulder: + H&N Painful but neg empty can Full passive ROM Active AB full but painful at mid-arc Psych Appearance: grossly normal Affect: normal affect Attitude: cooperative Office Procedures Joint Injection/Drain Joint Injection/Drain Details: Injected 1 mL of Decadron and 3 mL 1% lidocaine and 3 mL of 0.25% Marcaine. Site was prepped using aseptic technique. Patient tolerated the procedure well. Primary Site: right shoulder Approach Used: posterolateral Coding 85356 - Large joint Procedure code (CPT) selection complete Results Reviewed Results Reviewed: 06/10/23 11:20 BUPivacaine MPF 0.25 % [Sensorcaine-MPF 0.25% 10 ML] 10 ml .ROUTE .STK-MED ONE Lidocaine HCl 2 % MPF [Xylocaine 2 % MPF] 5 ml .ROUTE .STK-MED ONE dexAMETHasone sod phosphate [Decadron] 4 mg .ROUTE .STK-MED ONE I personally reviewed relevant radiographs. Mild arthritic changes at the right acromioclavicular articulation. No acute osseous abnormality. Assessment & Plan Assessment & Plan (1) Bursitis of right shoulder: Code(s): M75.51 - Bursitis of right shoulder Plan: This is a 68 year old woman with right shoulder bursitis. She has pain with daily activity, worse with overhead activity & at night. She has a Hx of relief from steroid injections and mild relief from NSAIDs. I discussed her diagnosis and treatment options. I injected her right shoulder today, which she tolerated well, and provided a handout of shoulder strengthening exercises. She will work on strengthening exercises and be mindful to keep her elbows close to her body with activities. She can follow up prn. (2) Neck pain: Code(s): M54.2 - Cervicalgia Plan: Sandy does have associated neck pain with occasional numbness or tingling. If injections are not helpful we may pursue her neck pain further (3) Anxiety: Code(s): F41.9 - Anxiety disorder, unspecified Plan: Sandy often feels anxious caring for her who has cancer and feels this may be contributing some to her pain at night. I recommend she see her PCP but this is certainly likely. Plan Scribed for Pieter Childs MD by Humza Celaya, medical center manager, on 06/10/23 at 11:20 AM, EST. Coding Level of Care Code New Pt Level 4 (41622) Diagnoses Bursitis of right shoulder M75.51 Neck pain M54.2 Anxiety F41.9 CPT Codes Coding - Large joint: 28651 - Large joint ([id number])
== END 2023-06-10 11:34 | disposition home or self-care (01) ==
PROVIDERS: Visit Provider Orthopaedic Surgery
DX: M75.51 Bursitis of right shoulder (principal); M54.2 Cervicalgia; F41.9 Anxiety disorder, unspecified
CPT/HCPCS: 20610; 99204

== ENCOUNTER → 2023-06-10 10:45 | Outpatient (BNVA) | payer OTHER, SELFPAY | PROVIDERS: Visit Provider Orthopaedic Surgery | DX: M75.51 Bursitis of right shoulder (principal); M54.2 Cervicalgia; F41.9 Anxiety disorder, unspecified | CPT/HCPCS: 20610; J1100 ==

== ENCOUNTER 2023-08-16 06:19 | Outpatient (REF) | payer OTHER, SELFPAY ==
[2023-08-16 08:53] LABS: Thyroid Stimulating Hormone 2.12 uIU/mL (0.32-4.0)
== END 2023-08-16 06:20 | disposition home or self-care (01) ==
LOC: HO.LAB 06:19
PROVIDERS: PCP Internal Medicine; Visit Provider Internal Medicine
DX: E03.9 Hypothyroidism, unspecified (principal)
CPT/HCPCS: 36415; 84443

== ENCOUNTER 2023-08-28 16:50 | Outpatient (AMB) | payer OTHER, SELFPAY ==
[2023-08-28 16:53] VITALS: BP 130/80; BMI 26.7
--- NOTE | 2023-08-28 16:53 | MHC.PC.OV ---
Vital Signs 08/28/23 16:53 Height 4 ft 10 in Weight 128 lb BMI 26.7 BP 130/80 Blood Pressure Location Lt brachial Position Sitting Intake Visit Reasons: thyroid Intake Note: Patient here for a follow up thyroid Manager Intensive Care Required: No Accompanied by: Self / Same As Patient Allergies citalopram Allergy (Intermediate, Verified 08/28/23 17:12) hives duloxetine Allergy (Intermediate, Verified 08/28/23 17:07) nausea gabapentin Allergy (Intermediate, Verified 08/28/23 17:07) somnelence latex [LATEX] Allergy (Intermediate, Verified 08/28/23 17:07) RASH lisinopril [LISINOPRIL] Allergy (Intermediate, Verified 08/28/23 17:07) COUGH sulfamethoxazole [From BACTRIM] Allergy (Intermediate, Verified 08/28/23 17:07) RASH tramadol [TRAMADOL] Allergy (Intermediate, Verified 08/28/23 17:07) ITCHY, rash trimethoprim [From BACTRIM] Allergy (Intermediate, Verified 08/28/23 17:07) RASH sertraline Allergy (Verified 08/28/23 17:07) Hives Medication List - Last Reconciled 08/28/23 by Latisha Toney MD atorvastatin 20 mg PO BEDTIME 90 days cetirizine (Allergy Relief (cetirizine)) 10 mg PO DAILY PRN 30 days chlorthalidone 25 mg PO DAILY 90 days clonazepam 0.5 mg PO DAILY PRN 30 days cyclobenzaprine 10 mg PO BEDTIME PRN 30 days irbesartan 300 mg PO DAILY 90 days levothyroxine 88 mcg PO DAILY 90 days meclizine 25 mg PO TID PRN 10 days meloxicam 15 mg PO DAILY omeprazole 20 mg PO DAILY 90 days simethicone (Gas Relief (simethicone)) 125 mg PO TID-QID PRN 30 days Tobacco use date assessed: 01/01/23 Fall risk assessment: No Falls in past year Last assessed Fall Risk: 08/28/23 Dental Screening Dental Screen Date: 08/28/23 Did you have a dental visit in the last 12 months?: Yes Did you have a dental problem in the last 6 months where you did not have access to dental care?: No Was dental information given to patient?: Patient has dentist HPI HPI Comments History of Present Illness Details This is a 68-year-old female with hypertension, pure hypercholesterolemia, hypothyroidism and GERD that complains of some lower quadrant abdominal pain that has been present for few weeks more prominent when she changes position in bed from right to left. No bowel or bladder habits change. Blood pressure stable. Cholesterol well control. TSH normal. GERD stable with medications. Also has some right hip pain. [facility] Medical History (Updated 08/28/23 @ 17:18 by Latisha Toney MD) Pain of right clavicle Overweight (BMI 25.0-29.9) Osteopenia Benign paroxysmal vertigo Postmenopausal Arthritis GERD (gastroesophageal reflux disease) Essential hypertension Anxiety Acquired hypothyroidism Pure hypercholesterolemia Surgical History Cataract History of lumbar surgery History of thyroidectomy S/P FIORDALIZA (total abdominal hysterectomy) History of hemicolectomy Rectocele Family History Father No problems noted. Mother Diabetes Stroke Hypertension Brother Lung cancer Social History Housing: Apartment Alcohol intake: never Patient Tobacco Use Status: Never used Tobacco e-Cigarette/Vaping Use: Never Used Second Hand Smoke Exposure: No service: No Current occupational status: employed Current occupational exposures/hazards: No Cognitive needs: No Hearing needs: No Vision needs: Yes Questionnaire Thrive Questionnaire Date Thrive assessed: 01/01/23 JANNETH-7 AMB Questionnaire JANNETH-7 Date JANNETH - 7 assessed: 03/12/23 Source: Developed by Drs. Valdemar Estes, Joanie Oreilly, Charles Huff and colleagues, with an educational kj from [employer]. Review of Systems Const All systems reviewed & are unremarkable except as noted in HPI and below Eyes Reports no additional complaints, Denies change in vision and Denies other visual disturbances Card Denies chest pain at rest, Denies chest pain with activity, Denies edema, Denies irregular heart rhythm, Denies claudication, Denies dyspnea, Denies dyspnea on exertion, Denies orthopnea, Denies paroxysmal nocturnal dyspnea and Denies slow heart rate Resp Denies cough, Denies dyspnea and Denies dyspnea on exertion GI Reports abdominal pain, Denies change in bowel habits, Denies excessive flatus, Denies nausea and Denies vomiting Denies urinary incontinence, Denies urinary hesitancy and Denies urinary urgency Musc Denies abnormal gait, Denies atrophy, Denies deformity and Denies limited range of motion Skin/Breast Denies bleeding lesions, Denies changing lesions and Denies rash Neuro Denies abnormal gait and Denies lack of coordination Physical exam (Primary Care) Vital Signs: Last Vital Signs BP 130/80 08/28/23 16:53 BMI result Body Mass Index 26.7 Tobacco/Smoking Status: Tobacco use Status Tobacco use date assessed 01/01/23 08/28/23 16:58 Patient Tobacco Use Status Never used Tobacco 08/28/23 16:58 Tobacco use type 08/27/22 17:42 e-Cigarette/Vaping Use Never Used 08/28/23 16:58 Thrive Assessment: Date of Thrive Assessment Date Thrive assessed 01/01/23 08/28/23 16:58 Eyes General: appearance normal, both eyes and all related structures Eyelids: Yes eyelids normal Conjunctivae: conjunctivae normal Neck Neck: Yes normal visual inspection and Yes supple Resp Effort & Inspection: normal respiratory effort Auscultation: clear to auscultation bilaterally Cardio Jugular venous distension: no JVD Rate: regular rate Rhythm: regular rhythm Heart sounds: S1 normal heart sound present and S2 normal heart sound present GI Inspection: Yes normal to inspection Auscultation: normal bowel sounds Extrem General: Yes full ROM Assessment and Plan Assessment & Plan (1) Essential hypertension: Code(s): I10 - Essential (primary) hypertension Plan: Continue chlorthalidone and irbesartan. Blood pressure goal is equal or less than 130/80 (2) Acquired hypothyroidism: Code(s): E03.9 - Hypothyroidism, unspecified Plan: Continue levothyroxine (3) Pure hypercholesterolemia: Code(s): E78.00 - Pure hypercholesterolemia, unspecified Plan: Continue statin (4) GERD (gastroesophageal reflux disease): Code(s): K21.9 - Gastro-esophageal reflux disease without esophagitis Qualifiers: Esophagitis presence: esophagitis presence not specified Qualified Code(s): K21.9 - Gastro-esophageal reflux disease without esophagitis Plan: Continue PPIs Orders: Orders XR hip RT min 2V Today M25.551 - Pain in right hip US pelvic complete Today R10.2 - Pelvic and perineal pain Medications: Refilled omeprazole 20 mg PO DAILY 90 days 90 caps 3RF K21.9 - Gastro-esophageal reflux disease without esophagitis chlorthalidone 25 mg PO DAILY 90 days 90 tabs 0RF I10 - Essential (primary) hypertension Coding Level of Care Code Est Pt Level 4 (01430) Diagnoses Essential hypertension I10 Acquired hypothyroidism E03.9 Pure hypercholesterolemia E78.00 Gastroesophageal reflux disease, unspecified whether esophagitis present K21.9 Esophagitis presence: esophagitis presence not specified Time Spent (min) 23
== END 2023-08-28 17:21 | disposition home or self-care (01) ==
PROVIDERS: PCP Internal Medicine; Visit Provider Internal Medicine
DX: I10 Essential (primary) hypertension (principal); E03.9 Hypothyroidism, unspecified; E78.00 Pure hypercholesterolemia, unspecified; K21.9 Gastro-esophageal reflux disease without esophagitis
CPT/HCPCS: 99214

== ENCOUNTER 2023-08-29 16:27 | Outpatient (REF) | payer OTHER, SELFPAY ==
--- NOTE | ~2023-08-29 | XR_ITS ---
EXAMINATION: XR HIP, RIGHT CLINICAL INFORMATION: Right hip pain. COMPARISON: None available. TECHNIQUE: AP view the pelvis as well as AP and frog-leg lateral views of the right hip. FINDINGS: Moderate right hip joint space narrowing with marginal osteophytes. No osseous erosion. No avascular necrosis. No acute fracture or dislocation. No abnormal soft tissue calcification. [id number] left hip joint space narrowing with marginal osteophytes. No left hip fracture. XR/XR hip RT min 2V IMPRESSION: Moderate right and [id number] left hip osteoarthritis.
== END 2023-08-29 16:28 | disposition home or self-care (01) ==
LOC: HO.XRAY 16:27
PROVIDERS: PCP Internal Medicine; Visit Provider Internal Medicine
DX: M25.551 Pain in right hip (principal)
CPT/HCPCS: 73502

== ENCOUNTER 2023-09-01 11:00 | Emergency (ER) | payer OTHER, SELFPAY ==
--- NOTE | ~2023-09-01 | XR_ITS ---
EXAMINATION: XR SHOULDER, RIGHT CLINICAL INFORMATION: Pain post fall COMPARISON: Previous x-ray April 2023 TECHNIQUE: Three views of the right shoulder. FINDINGS: Bone alignment is normal. No fracture or dislocation. Arthritis at the acromioclavicular joint. Normal glenohumeral joint. Normal soft tissues. Surgical clips in the lower neck. XR/XR shoulder RT min 2V IMPRESSION: No fracture or dislocation. Degenerative changes at the acromioclavicular joint.
[2023-09-01 11:11] VITALS: BP 145/65; PULSE 63; RESP 16; TEMP 37.4; O2SAT 98; BMI 26.4
--- NOTE | 2023-09-01 11:11 | ED_ITS ---
HPI - Fall General Chief Complaint: Fall Stated Complaint: 08/29 Fall/ Arm pain Time Seen by Provider: 09/01/23 11:15 Source: patient Mode of arrival: ambulatory Limitations: no limitations History of Present Illness HPI Narrative: 68-year-old female here with complaints of right shoulder pain. Patient reports that she has a history of chronic right shoulder pain and has been seen by orthopedics for this. She did have a cortisone injection about 6 weeks ago. She has continued to have pain which did not improve with the cortisone injection. Patient reports 3 days ago she did have a fall off of a small steps will about 3 steps and she did catch herself with her right shoulder. Since then she has had increasing pain unrelieved with naproxen at home. Patient reports pain is worsened with movement of the extremity. She denies any weakness, numbness, tingling at the extremity. Related Data Previous Rx's Medication Instructions Recorded cyclobenzaprine 10 mg tablet 10 mg PO BEDTIME PRN muscle spasm 12/15/20 30 days #30 tabs simethicone 125 mg capsule (Gas 125 mg PO TID-QID PRN abdominal 02/21/21 Relief (simethicone)) distention 30 days #120 caps meclizine 25 mg tablet 25 mg PO TID PRN dizziness 10 days 04/17/21 #30 tabs atorvastatin 20 mg tablet 20 mg PO BEDTIME 90 days #90 tabs 03/12/23 clonazepam 0.5 mg tablet 0.5 mg PO DAILY PRN anxiety 30 03/12/23 days #30 tabs meloxicam 15 mg tablet 15 mg PO DAILY #90 tabs 04/04/23 cetirizine 10 mg tablet (Allergy 10 mg PO DAILY PRN allergy 05/02/23 Relief (cetirizine)) symptoms 30 days #90 tabs levothyroxine 88 mcg tablet 88 mcg PO DAILY 90 days #90 tabs 07/15/23 irbesartan 300 mg tablet 300 mg PO DAILY 90 days #90 tabs 07/24/23 chlorthalidone 25 mg tablet 25 mg PO DAILY 90 days #90 tabs 08/28/23 omeprazole 20 mg capsule,delayed 20 mg PO DAILY 90 days #90 caps 08/28/23 release cyclobenzaprine 10 mg tablet 10 mg PO TID PRN muscle spasm #15 09/01/23 tabs Allergies Allergy/AdvReac Type Severity Reaction Status Date / Time citalopram Allergy Intermediate hives Verified 09/01/23 11:14 duloxetine Allergy Intermediate nausea Verified 09/01/23 11:14 gabapentin Allergy Intermediate somnelence Verified 09/01/23 11:14 latex [LATEX] Allergy Intermediate RASH Verified 09/01/23 11:14 lisinopril [LISINOPRIL] Allergy Intermediate COUGH Verified 09/01/23 11:14 sulfamethoxazole Allergy Intermediate RASH Verified 09/01/23 11:14 [From BACTRIM] tramadol [TRAMADOL] Allergy Intermediate ITCHY, rash Verified 09/01/23 11:14 trimethoprim [From BACTRIM] Allergy Intermediate RASH Verified 09/01/23 11:14 sertraline Allergy Hives Verified 09/01/23 11:14 Review of Systems Review of Systems: Yes all other systems are reviewed and are negative Constitutional: Constitutional: Reports no additional constitutional complaints, Denies body ache(s), Denies chills, Denies fever(s), Denies headache(s) and Denies weakness Eyes: Eyes: Reports no additional eye complaints and Denies change in vision ENT: Reports system reviewed and no additional complaints, except as documented, Denies dizziness, Denies headache(s), Denies nasal congestion, Denies nasal discharge and Denies neck pain Cardiovascular: Cardiovascular: Reports no additional cardiovascular complaints, Denies chest pain, Denies leg edema and Denies dyspnea Respiratory: Respiratory: Reports no additional respiratory complaints, Denies cough and Denies dyspnea Gastrointestinal: Gastrointestinal: Reports no additional gastrointestinal complaints, Denies abdominal pain, Denies diarrhea, Denies nausea and Denies vomiting Genitourinary: Genitourinary: Reports no additional female genitourinary complaints and Denies urinary incontinence Musculoskeletal: Musculoskeletal: Reports no additional musculoskeletal complaints, Denies back pain, Reports arthralgias, Denies joint swelling, Reports limited range of motion, Denies neck pain, Denies numbness and Denies tingling Integumentary/Breasts: Skin/Breast: Reports system reviewed and no additional complaints, except as docu and Denies rash Neurologic: Reports system reviewed and no additional complaints, except as documented, Denies Abnormal speech present, Denies dizziness, Denies headache(s), Denies numbness, Denies tingling and Denies weakness PMFSH Past Medical History Attestation statement: The following information was validated with the patient. Source: old records reviewed and nursing notes reviewed Medical History Pain of right clavicle Overweight (BMI 25.0-29.9) Osteopenia Benign paroxysmal vertigo Postmenopausal Arthritis GERD (gastroesophageal reflux disease) Essential hypertension Anxiety Acquired hypothyroidism Pure hypercholesterolemia Surgical History Cataract History of lumbar surgery History of thyroidectomy S/P FIORDALIZA (total abdominal hysterectomy) History of hemicolectomy Rectocele Family History Family History Father No problems noted. Mother Diabetes Stroke Hypertension Brother Lung cancer Social History Social History Housing: Apartment Alcohol intake: never Patient Tobacco Use Status: Never used Tobacco e-Cigarette/Vaping Use: Never Used Second Hand Smoke Exposure: No Advance Directives: Yes Advance Directives Information Provided: Yes Advance Directives on File: No service: No Current occupational status: employed Current occupational exposures/hazards: No Cognitive needs: No Hearing needs: No Vision needs: Yes Physical Exam Vital Signs: Vital Signs: Last Vital Signs Temp 99.4 F 09/01/23 11:11 Pulse 63 09/01/23 11:11 Resp 16 09/01/23 11:11 BP 145/65 H 09/01/23 11:11 Pulse Ox 98 09/01/23 11:11 O2 Del Method Room Air 09/01/23 11:11 BMI result Body Mass Index 26.4 Const: General: cooperative, healthy appearing, comfortable and no acute distress Orientation/consciousness: patient oriented x3 Limitations: no limitations HEENT: Head: Yes normal to inspection Ears: hearing grossly normal bilaterally General nose exam: Normal external nose present Face and sinus: Yes normal facial exam Mouth: Normal oral and palatal mucosa present Throat: Yes posterior oropharynx normal Eyes: General: appearance normal, both eyes and all related structures Pupils: Equal, round and reactive pupils present Neck: Neck: Yes normal visual inspection Chest: Chest palpation & inspection: normal inspection of the chest Resp: Effort & Inspection: normal respiratory effort Auscultation: clear to auscultation bilaterally Cardio: Rate: regular rate Rhythm: regular rhythm Peripheral pulses: Peripheral pulses 2+ throughout GI: Inspection: Yes normal to inspection Palpation (GI): Soft to palpation and nontender Auscultation: normal bowel sounds Back/Spine/Pelvis: Thoracic/Lumbar Spine: thoracic and lumbar spine normal to inspection Skin: General skin exam: no rashes or lesions noted Neuro: General: patient oriented x3, no focal motor deficits and normal sensation to monofilament Cranial nerves: Yes Equal, round and reactive pupils present Cognition (Neuro): normal cognition Speech: No Abnormal speech present Gait exam (Neuro): Normal gait present Motor exam (neuro): 5/5 motor strength present throughout Extrem: Other: Limited abduction due to pain. There is tenderness on palpation to the right anterior shoulder and proximal humerus with no obvious deformity or swelling. There is also some tenderness over the post your your right shoulder and on the superior aspect with palpable muscle spasm. There are normal radial and ulnar pulses of the right upper extremity. Normal distal sensation. No tenderness on palpation over the right elbow, forearm, hand or wrist with full range of motion both passive and actively of these joints. General: Yes normal to inspection Course Course Course Narrative: RME - 68 y/o female with history of anxiety/depression, GERD, HLD, arthritis, HTN, BPPV presents to the ER for evaluation of right shoulder pain w/ limited ROM since a fall 3 days ago. She hit her head against the wall, no LOC, cannot recall how she injured the shoulder but has been unable to move it well since. Hx shoulder shoulder bursitis and chronic pain but this is worse. No right elbow or wrist pain. Not on anticoagulation. Plan: x-ray right shoulder Medical Decision Making Medical Decision Making MDM Narrative: 68-year-old female here with complaints of right shoulder pain. Patient reports that she has a history of chronic right shoulder pain and has been seen by orthopedics for this. She did have a cortisone injection about 6 weeks ago. She has continued to have pain which did not improve with the cortisone injection. Patient reports 3 days ago she did have a fall off of a small steps will about 3 steps and she did catch herself with her right shoulder. Since then she has had increasing pain unrelieved with naproxen at home. Patient reports pain is worsened with movement of the extremity. She denies any weakness, numbness, tingling at the extremity. Limited abduction due to pain. There is tenderness on palpation to the right anterior shoulder and proximal humerus with no obvious deformity or swelling. There is also some tenderness over the post your your right shoulder and on the superior aspect with palpable muscle spasm. There are normal radial and ulnar pulses of the right upper extremity. Normal distal sensation. No tenderness on palpation over the right elbow, forearm, hand or wrist with full range of motion both passive and actively of these joints. Plan:X-ray Differential Diagnosis Differential Diagnoses: The differential diagnosis associated with the presentation includes Strain, sprain, contusion Low concern for fracture, dislocation, vascular injury Osteoarthritis Admission/Observation Consideration of admission/observation: Escalation of care including admission/observation considered Low concern for fracture, dislocation, vascular injury requiring orthopedic consultation and or admission or surgical intervention Independent Interpretation I performed an independent interpretation of an: Plain X-Ray Interpretation: I independently reviewed the x-ray and agree with the radiology report Radiology Impression Discussion of test interpretation with radiology: I have reviewed the radiologist's reading. Radiologist Impression: COMPARISON: Previous x-ray April 2023 TECHNIQUE: Three views of the right shoulder. FINDINGS: Bone alignment is normal. No fracture or dislocation. Arthritis at the acromioclavicular joint. Normal glenohumeral joint. Normal soft tissues. Surgical clips in the lower neck. XR/XR shoulder RT min 2V IMPRESSION: No fracture or dislocation. Degenerative changes at the acromioclavicular joint. Tests considered The following testing was considered but not selected: Low concern for vascular injury requiring additional imaging Prescription Management I considered prescription management with: Pain Medication Discharge Plan Discharge Clinical Impression: Right shoulder strain, Osteoarthritis Patient Disposition: Home, Self-Care Instructions: Muscle Strain (ED), Osteoarthritis (ED) Additional Instructions: continue naproxen call orthopedics to follow-up Prescriptions: New cyclobenzaprine 10 mg tablet 10 mg PO TID PRN (Reason: muscle spasm) Qty: 15 0RF No Action meloxicam 15 mg tablet 15 mg PO DAILY Qty: 90 3RF cetirizine [Allergy Relief (cetirizine)] 10 mg tablet 10 mg PO DAILY PRN (Reason: allergy symptoms) 30 Days Qty: 90 1RF levothyroxine 88 mcg tablet 88 mcg PO DAILY 90 Days Qty: 90 1RF irbesartan 300 mg tablet 300 mg PO DAILY 90 Days Qty: 90 3RF simethicone [Gas Relief (simethicone)] 125 mg capsule 125 mg PO TID-QID PRN (Reason: abdominal distention) 30 Days Qty: 120 6RF meclizine 25 mg tablet 25 mg PO TID PRN (Reason: dizziness) 10 Days Qty: 30 1RF cyclobenzaprine 10 mg tablet 10 mg PO BEDTIME PRN (Reason: muscle spasm) 30 Days Qty: 30 0RF clonazepam 0.5 mg tablet 0.5 mg PO DAILY PRN (Reason: anxiety) 30 Days Qty: 30 0RF atorvastatin 20 mg tablet 20 mg PO BEDTIME 90 Days Qty: 90 3RF omeprazole 20 mg capsule,delayed release(DR/EC) 20 mg PO DAILY 90 Days Qty: 90 3RF chlorthalidone 25 mg tablet 25 mg PO DAILY 90 Days Qty: 90 0RF Referrals: [facility] [place] [Provider Group] - 5 days
== END 2023-09-01 12:07 | disposition home or self-care (01) ==
PROVIDERS: Emergency Provider Emergency Medicine; PCP Internal Medicine
DX: S46.911A Strain of unspecified muscle, fascia and tendon at shoulder and upper arm level, right arm, initial encounter (principal); M25.511 Pain in right shoulder; W10.9XXA Fall (on) (from) unspecified stairs and steps, initial encounter; Y93.9 Activity, unspecified; Y92.9 Unspecified place or not applicable; Y99.9 Unspecified external cause status
CPT/HCPCS: 73030; 99282; 99283

== ENCOUNTER 2023-09-12 11:56 | Outpatient (AMB) | payer OTHER, SELFPAY ==
[2023-09-12 12:22] VITALS: BMI 26.3
--- NOTE | 2023-09-12 12:22 | A.OFFVIS_ITS ---
Intake Vital Signs 09/12/23 12:22 Height 4 ft 11 in Weight 130 lb BMI 26.3 Intake Visit Reasons: OV R shoulder pain- fall on 09/01/23 Intake Note: mc is a 68 year old right hand dominant female who presents today with complaints of right shoulder pain, reports a fall on 09/01/23. She fell while putting away stool in the closet and fell hitting her head. She does not remember the fall as she hit the head, but she is having increased pain. Last Injection was done on 06/10/23. This injection was not helpful. She has increased pain at night, pain is radiating to the elbow and neck. Allergies citalopram Allergy (Intermediate, Verified 09/01/23 11:14) hives duloxetine Allergy (Intermediate, Verified 09/01/23 11:14) nausea gabapentin Allergy (Intermediate, Verified 09/01/23 11:14) somnelence latex [LATEX] Allergy (Intermediate, Verified 09/01/23 11:14) RASH lisinopril [LISINOPRIL] Allergy (Intermediate, Verified 09/01/23 11:14) COUGH sulfamethoxazole [From BACTRIM] Allergy (Intermediate, Verified 09/01/23 11:14) RASH tramadol [TRAMADOL] Allergy (Intermediate, Verified 09/01/23 11:14) ITCHY, rash trimethoprim [From BACTRIM] Allergy (Intermediate, Verified 09/01/23 11:14) RASH sertraline Allergy (Verified 09/01/23 11:14) Hives HPI OV R shoulder pain- fall on 09/01/23 HPI Details Sandy is a 68 year old woman with right shoulder bursitis, who presen ts with increased shoulder pain after a fall, DOI: 09/01/23 She reports falling and striking her head, and says she does not necessarily remember her fall but she has had increased shoulder pain since. She has pain with use of her right arm, worse with overhead activity and at night. She continues to feel pain radiating into her neck and elbow. She finds mild relief from NSAIDs, and had good relief in the past from injections, expect for her most recent injection was on 06/10/23, which did not give her relief. 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 [facility] Medical History (Updated 09/12/23 @ 15:50 by Pieter Childs MD) Dysfunction of right rotator cuff Pain of right clavicle Overweight (BMI 25.0-29.9) Osteopenia Benign paroxysmal vertigo Postmenopausal Arthritis GERD (gastroesophageal reflux disease) Essential hypertension Anxiety Acquired hypothyroidism Pure hypercholesterolemia Surgical History Cataract History of lumbar surgery History of thyroidectomy S/P FIORDALIZA (total abdominal hysterectomy) History of hemicolectomy Rectocele Family History Father No problems noted. Mother Diabetes Stroke Hypertension Brother Lung cancer Social History Housing: Apartment Alcohol intake: never Patient Tobacco Use Status: Never used Tobacco e-Cigarette/Vaping Use: Never Used Second Hand Smoke Exposure: No service: No Current occupational status: employed Current occupational exposures/hazards: No Cognitive needs: No Hearing needs: No Vision needs: Yes Review of Systems Const All systems reviewed & are unremarkable except as noted in HPI and below Physical Exam Vital Signs: BMI result Body Mass Index 26.3 Const General: no acute distress, alert and awake Orientation/consciousness: patient oriented x3 HEENT Head: Yes normocephalic and Yes atraumatic Eyes EOM: EOMs intact bilaterally Resp Effort & Inspection: normal respiratory effort and able to speak in complete sentences Cardio Jugular venous distension: no JVD Skin General skin exam: turgor normal Rashes: no rashes Neuro General: patient oriented x3 Extrem Other: Right Shoulder: + H&N Painful but neg empty can Full passive ROM Active AB full but painful at mid-arc Psych Appearance: grossly normal Affect: normal affect Attitude: cooperative Assessment & Plan Assessment & Plan (1) Bursitis of right shoulder: Code(s): M75.51 - Bursitis of right shoulder Plan: This is a 68 year old woman with right shoulder bursitis, and increased pain S/P fall, DOI: 09/01/23. She has pain with daily activity, worse with overhead acti vity & at night. She has a Hx of relief from steroid injections, though her most recent was not helpful, and mild relief from NSAIDs. Her last injection was on 06/10/23. I discussed her diagnosis and treatment options. I recommend she continue to work on strengthening exercises and be mindful to keep her elbows close to her body with activities. She can follow up prn. (2) Neck pain: Code(s): M54.2 - Cervicalgia Plan: Associated neck pain with occasional numbness or tingling. If injections are not helpful we may pursue her neck pain further (3) Anxiety: Code(s): F41.9 - Anxiety disorder, unspecified Plan: Feels anxious when caring for her who has cancer, and feels this may be contributing some to her pain at night. (4) Dysfunction of right rotator cuff: Code(s): M67.911 - Unspecified disorder of synovium and tendon, right shoulder Plan Scribed for Pieter Childs MD by Humza Celaya, medical education specialist, on 09/12/23 at 12:45 PM, EST. Orders: Orders PT Evaluation and Treatment 09/12/23 M67.911 - Unspecified disorder of synovium and tendon, right shoulder MR shoulder RT wo con 09/12/23 M67.911 - Unspecified disorder of synovium and tendon, right shoulder Coding Level of Care Code Est Pt Level 3 (54019) Diagnoses Bursitis of right shoulder M75.51 Neck pain M54.2 Anxiety F41.9 Dysfunction of right rotator cuff M67.911
== END 2023-09-12 12:36 | disposition home or self-care (01) ==
PROVIDERS: PCP Internal Medicine; Visit Provider Orthopaedic Surgery
DX: M75.51 Bursitis of right shoulder (principal); M54.2 Cervicalgia; M67.911 Unspecified disorder of synovium and tendon, right shoulder
CPT/HCPCS: 99213

== ENCOUNTER → 2023-09-12 11:56 | Outpatient (BNVA) | payer OTHER, SELFPAY | PROVIDERS: PCP Internal Medicine; Visit Provider Orthopaedic Surgery ==

== ENCOUNTER 2023-09-13 12:35 | Outpatient (REF) | payer OTHER, SELFPAY ==
--- NOTE | ~2023-09-13 | US_ITS ---
EXAMINATION: US PELVIS CLINICAL INFORMATION: Pelvic and perineal pain, unknown last menstrual period. Hysterectomy and right oophorectomy. COMPARISON: None available. TECHNIQUE: Ultrasound of the pelvis is performed using both transabdominal and transvaginal transducers along with Doppler. Transvaginal imaging is performed due to inadequate visualization transabdominally. FINDINGS: The uterus and right ovary are surgically absent. Left ovary measures 2.8 x 1.2 x 1.1 cm, volume 1.9 mL and is unremarkable. No significant free fluid. Limited visualization due to bowel gas. US/US pelvic and transvaginal IMPRESSION: 1. Uterus and right ovary surgically absent. 2. Left ovary unremarkable.
== END 2023-09-13 12:36 | disposition home or self-care (01) ==
LOC: HO.US 12:35
PROVIDERS: PCP Internal Medicine; Visit Provider Internal Medicine
DX: R10.2 Pelvic and perineal pain (principal)
CPT/HCPCS: 76830; 76856

== ENCOUNTER 2023-10-16 19:33 | Outpatient (REF) | payer OTHER, SELFPAY ==
--- NOTE | ~2023-10-16 | MR_ITS ---
EXAMINATION: MR SHOULDER WITHOUT CONTRAST, RIGHT CLINICAL INFORMATION: Right shoulder pain. COMPARISON: Most recent right shoulder radiographs dated 09/01/2023. TECHNIQUE: MRI of the shoulder without contrast was performed on a high-field scanner. FINDINGS: ROTATOR CUFF: Complete, full-thickness tear of the supraspinatus tendon extending into the anterior leading edge of the infraspinatus tendon and measuring up to 3.1 x 3.3 cm (AP x ML). The torn tendon fibers are retracted to the glenohumeral articulation. Moderate subscapularis tendinosis with distal attenuation measuring up to 3.3 cm in ML dimension and consistent with articular surface partial tearing. Mild supraspinatus, infraspinatus, and subscapularis muscle atrophy. BICEPS: Absence of the proximal long head biceps tendon, consistent with a complete tear and tendon retraction. CORACOACROMIAL ARCH: The undersurface of the acromion is curved with no subacromial spur. Type B os acromiale with a small effusion and mild degenerative change. Mild acromioclavicular osteoarthritis. LABRUM/CAPSULE: Blunting of the superior and posterosuperior labrum without displaced undersurface tearing. Intact inferior joint capsule. GLENOHUMERAL JOINT/MARROW: Focal partial-thickness articular cartilage loss at the humeral head apex measuring up to 0.5 cm in ML dimension. Mild glenoid articular cartilage signal heterogeneity. Tiny marginal osteophytes. Moderate joint effusion. MR/MR shoulder RT wo con IMPRESSION: 1. Complete, full-thickness tear of the supraspinatus tendon extending into the anterior leading edge of the infraspinatus tendon. The torn tendon fibers are retracted to the glenohumeral articulation. Moderate subscapularis tendinosis with distal articular surface partial tearing. Mild supraspinatus, infraspinatus, and subscapularis muscle atrophy. 2. Complete tear and retraction of the proximal long head biceps tendon. 3. 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 Mild acromioclavicular osteoarthritis. 4. Blunting of the superior and posterosuperior labrum without displaced undersurface tearing. 5. Mild glenohumeral osteoarthritis. Moderate joint effusion.
== END 2023-10-16 19:34 | disposition home or self-care (01) ==
LOC: HO.MRI 19:33
PROVIDERS: PCP Internal Medicine; Visit Provider Orthopaedic Surgery
DX: M67.911 Unspecified disorder of synovium and tendon, right shoulder (principal)
CPT/HCPCS: 73221

== ENCOUNTER 2023-11-01 11:48 | Outpatient (AMB) | payer OTHER, SELFPAY ==
--- NOTE | 2023-11-01 12:35 | MHC.OFFVIS ---
Intake Vital Signs 11/01/23 12:40 Height 4 ft 11 in Weight 130 lb BMI 26.3 Intake Visit Reasons: ov- MRI Shoulder RT Review Intake Note: Sandy is a 68 year old female who presents today for an MRI review of her right shoulder. Last Injection done on 06/10/23 Allergies citalopram Allergy (Intermediate, Verified 09/01/23 11:14) hives duloxetine Allergy (Intermediate, Verified 09/01/23 11:14) nausea gabapentin Allergy (Intermediate, Verified 09/01/23 11:14) somnelence latex [LATEX] Allergy (Intermediate, Verified 09/01/23 11:14) RASH lisinopril [LISINOPRIL] Allergy (Intermediate, Verified 09/01/23 11:14) COUGH sulfamethoxazole [From BACTRIM] Allergy (Intermediate, Verified 09/01/23 11:14) RASH tramadol [TRAMADOL] Allergy (Intermediate, Verified 09/01/23 11:14) ITCHY, rash trimethoprim [From BACTRIM] Allergy (Intermediate, Verified 09/01/23 11:14) RASH sertraline Allergy (Verified 09/01/23 11:14) Hives HPI ov- MRI Shoulder RT Review HPI Details Sandy is a 68 year old woman with right shoulder bursitis, who presents for an MRI review. She continues to have pain with use of her right arm, worse with overhead activity and at night. She continues to feel pain radiating into her neck and elbow, and pain in her biceps with lifting activities. She finds mild relief from NSAIDs, and had good relief in the past from injections, expect for her most recent injection was on 06/10/23, which did not give her relief. 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 [facility] Medical History (Updated 11/04/23 @ 09:11 by Pieter Childs MD) Dysfunction of right rotator cuff Pain of right clavicle Overweight (BMI 25.0-29.9) Osteopenia Benign paroxysmal vertigo Postmenopausal Arthritis GERD (gastroesophageal reflux disease) Essential hypertension Anxiety Acquired hypothyroidism Pure hypercholesterolemia Surgical History Cataract History of lumbar surgery History of thyroidectomy S/P FIORDALIZA (total abdominal hysterectomy) History of hemicolectomy Rectocele Family History Father No problems noted. Mother Diabetes Stroke Hypertension Brother Lung cancer Social History Housing: Apartment Alcohol intake: never Patient Tobacco Use Status: Never used Tobacco e-Cigarette/Vaping Use: Never Used Second Hand Smoke Exposure: No service: No Current occupational status: employed Current occupational exposures/hazards: No Cognitive needs: No Hearing needs: No Vision needs: Yes Review of Systems Const All systems reviewed & are unremarkable except as noted in HPI and below Physical Exam Vital Signs: BMI result Body Mass Index 26.3 Const General: no acute distress, alert and awake Orientation/consciousness: patient oriented x3 HEENT Head: Yes normocephalic and Yes atraumatic Eyes EOM: EOMs intact bilaterally Resp Effort & Inspection: normal respiratory effort and able to speak in complete sentences Cardio Jugular venous distension: no JVD Skin General skin exam: turgor normal Rashes: no rashes Neuro General: patient oriented x3 Extrem Other: Right Shoulder: + H&N 4/5 EC Full passive ROM Active AB to 80 deg Psych Appearance: grossly normal Affect: normal affect Attitude: cooperative Results Reviewed Results Reviewed: I personally reviewed relevant MR images 1. Complete, full-thickness tear of the supraspinatus tendon extending into the anterior leading edge of the infraspinatus tendon. The torn tendon fibers are retracted to the glenohumeral articulation. Moderate subscapularis tendinosis with distal articular surface partial tearing. Mild supraspinatus, infraspinatus, and subscapularis muscle atrophy. 2. Complete tear and retraction of the proximal long head biceps tendon. 3. 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 Mild acromioclavicular osteoarthritis. 4. Blunting of the superior and posterosuperior labrum without displaced undersurface tearing. 5. Mild glenohumeral osteoarthritis. Moderate joint effusion. Assessment & Plan Assessment & Plan (1) Complete rotator cuff tear: Code(s): M75.120 - Complete rotator cuff tear or rupture of unspecified shoulder, not specified as traumatic Plan: This is a 68 year old woman with right RTC tear arthropathy, with a complete full-thickness supraspinatus & biceps tendon tear, with retraction & mild atrophy. This has likely been present for at least 2 years when she had a remote injury but she can not be sure. We had a long discussion regarding treatment options. She feels the quality of her life is diminished and she has difficulty with ADLs. Injections have not really been helpful and I recommend surgical intervention. I discussed with her arthroplasty verses attempts at repair. Given that there is only mild atrophy I think it is reasonable to attempt a repair. She is healthy and active but I did inform her that I think it is unlikely to be repairable and neck case we certainly would proceed forward with arthroplasty if she desires. At this time, given our conversation, I recommend rotator cuff repair.I discussed the risks benefits and alternatives including but not limited to the risk of pain, infection, stiffness, need for further surgery as well as potential medical complications. Coding Level of Care Code Est Pt Level 4 (76387) Diagnoses Complete rotator cuff tear M75.120
[2023-11-01 12:40] VITALS: BMI 26.3
== END 2023-11-01 15:18 | disposition home or self-care (01) ==
PROVIDERS: PCP Internal Medicine; Visit Provider Orthopaedic Surgery
DX: S46.011A Strain of muscle(s) and tendon(s) of the rotator cuff of right shoulder, initial encounter (principal); S46.111A Strain of muscle, fascia and tendon of long head of biceps, right arm, initial encounter
CPT/HCPCS: 99214

== ENCOUNTER → 2023-11-01 11:48 | Outpatient (BNVA) | payer OTHER, SELFPAY | PROVIDERS: PCP Internal Medicine; Visit Provider Orthopaedic Surgery ==

== ENCOUNTER 2023-11-22 06:37 | Outpatient (REF) | payer OTHER, SELFPAY ==
[2023-11-22 06:56] LABS: MANUAL DIFF FLAG NO
--- NOTE | 2023-11-22 06:59 | ECG_ITS ---
Test Reason : Z01.818 Blood Pressure : / mmHG Vent. Rate : 052 BPM Atrial Rate : 052 BPM P-R Int : 192 ms QRS Dur : 084 ms QT Int : 444 ms P-R-T Axes : 064 016 059 degrees QTc Int : 412 ms Sinus bradycardia Otherwise normal ECG When compared with ECG of 05-NOV-2022 10:51, Nonspecific T wave abnormality no longer evident in Inferior leads Referred By: Latisha Toney Electronically Signed By:JL ANDRE MD
[2023-11-22 07:13] LABS: Basophils Absolute Auto 0.1 X10*3/uL (0.0-0.2); Basophils Percent Auto 1.1 % (0-2); Eosinophils Absolute Auto 0.2 X10*3/uL (0.0-0.4); Eosinophils Percent Auto 2.9 % (0-4); Hematocrit 35.4 % (37.0-47.0); Hemoglobin 12.1 g/dl (12.0-16.0); Imm Gran Abs Auto 0.01 X10*3/uL (0.00-0.03); Imm Gran Pct Auto 0.1 % (0.0-0.4); Lymphocytes Absolute Auto 3.4 X10*3/uL (1.2-4.9); Mean Corpuscular HGB Conc 34.2 g/dl (31.0-35.0); Mean Corpuscular Hemoglobin 30.6 pg (27.0-33.0); Mean Corpuscular Volume 89.4 fL (80.0-98.0); Mean Platelet Volume 11.1 fL (9.4-12.3); Monocytes Absolute Auto 0.6 X10*3/uL (0.1-1.2); Monocytes Percent Auto 8.5 % (2-11); Neutrophils Absolute Auto 2.8 x10*3/uL (2.0-8.3); Neutrophils Percent Auto 39.4 % (45-73); Platelet Count 241 X10*3/uL (160-400); Red Blood Count 3.96 X10*6/uL (4.20-5.50); Red Cell Distribution Width 12.1 % (11.0-16.0)
[2023-11-22 07:40] LABS: Alanine Aminotransferase 26 U/L (0-31); Albumin Level 3.9 g/dL (3.5-5.0); Alkaline Phosphatase 91 U/L (39-117); Anion Gap 12 (12-20); Aspartate Amino Transferase 22 U/L (5-31); Bilirubin Total 0.9 mg/dL (0.0-1.0); Blood Urea Nitrogen 27 mg/dL (9-16); Calcium 9.8 mg/dL (8.4-10.2); Carbon Dioxide 31 mmol/L (22-29); Chloride 101 mmol/L (96-108); Estimated Glomerular Filt Rate > 60; Glucose Fasting 111 mg/dL (60-99); Potassium 3.2 mmol/L (3.3-5.1); Sodium 141 mmol/L (135-145); Total Protein 6.3 g/dL (6.5-8.0)
== END 2023-11-22 06:38 | disposition home or self-care (01) ==
LOC: HO.LAB 06:37
PROVIDERS: PCP Internal Medicine; Visit Provider Internal Medicine
DX: Z01.818 Encounter for other preprocedural examination (principal); M25.551 Pain in right hip
CPT/HCPCS: 36415; 80053; 85025; 93005

== ENCOUNTER → 2023-11-22 06:59 | Outpatient (BNV) | payer OTHER, SELFPAY | PROVIDERS: PCP Internal Medicine; Visit Provider Internal Medicine Cardiovascular Disease | DX: R00.1 Bradycardia, unspecified (principal); Z01.818 Encounter for other preprocedural examination | CPT/HCPCS: 93010 ==

== ENCOUNTER 2023-11-28 10:46 | Outpatient (AMB) | payer OTHER, SELFPAY ==
--- NOTE | 2023-11-28 10:47 | A.OFFPC_ITS ---
Vital Signs 11/28/23 10:48 Height 4 ft 11 in Weight 123 lb BMI 24.8 BP 112/70 Blood Pressure Location Lt brachial Position Sitting Pulse 68 Pulse Source Pulse Oximeter Pulse Oximetry (%) 97 Oxygen Delivery Method Room Air Intake Visit Reasons: Right RTC Repair on 01/01/24 with Pieter Childs MD Intake Note: Patient here for Right RTC repair 01/01/24 Dr Childs Research Technologist Required: No Accompanied by: Self / Same As Patient Allergies citalopram Allergy (Intermediate, Verified 11/28/23 10:55) hives duloxetine Allergy (Intermediate, Verified 11/28/23 10:55) nausea gabapentin Allergy (Intermediate, Verified 11/28/23 10:55) somnelence latex [LATEX] Allergy (Intermediate, Verified 11/28/23 10:55) RASH lisinopril [LISINOPRIL] Allergy (Intermediate, Verified 11/28/23 10:55) COUGH sulfamethoxazole [From BACTRIM] Allergy (Intermediate, Verified 11/28/23 10:55) RASH tramadol [TRAMADOL] Allergy (Intermediate, Verified 11/28/23 10:55) ITCHY, rash trimethoprim [From BACTRIM] Allergy (Intermediate, Verified 11/28/23 10:55) RASH sertraline Allergy (Verified 11/28/23 10:55) Hives Medication List - Last Reconciled 11/28/23 by Latisha Toney MD atorvastatin 20 mg PO BEDTIME 90 days cetirizine (Allergy Relief (cetirizine)) 10 mg PO DAILY PRN 30 days chlorthalidone 25 mg PO DAILY 90 days clonazepam 0.5 mg PO DAILY PRN 30 days cyclobenzaprine 10 mg PO TID PRN cyclobenzaprine 10 mg PO BEDTIME PRN 30 days irbesartan 300 mg PO DAILY 90 days levothyroxine 88 mcg PO DAILY 90 days meclizine 25 mg PO TID PRN 10 days meloxicam 15 mg PO DAILY omeprazole 20 mg PO DAILY 90 days simethicone (Gas Relief (simethicone)) 125 mg PO TID-QID PRN 30 days Tobacco use date assessed: 01/01/23 Fall risk assessment: No Falls in past year Last assessed Fall Risk: 11/28/23 HPI HPI Comments History of Present Illness Details This is a 68-year-old female with hypertension, acquired hypothyroidism, pure hypercholesterolemia and moderate recurrent major depression that comes today for preop evaluation for right rotator cough tear repair scheduled for 01/01/2024. Blood pressure stable. She denies any chest pain or shortness of breath. Has 5-7 Mets of ADLs. EKG and labs were discussed and has mild hypokalemia that will be replaced. Last TSH was normal. Cholesterol controlled with statins and reports no side effects. Depression is in remission. By RCRI she has class 1 with 0.4% risk of cardiac complications. Patient is medically clear for right rotator cough tear repair scheduled for 01/01/2024. [facility] Medical History (Updated 11/28/23 @ 11:02 by Latisha Toney MD) Dysfunction of right rotator cuff Pain of right clavicle Overweight (BMI 25.0-29.9) Osteopenia Benign paroxysmal vertigo Postmenopausal Arthritis GERD (gastroesophageal reflux disease) Essential hypertension Anxiety Acquired hypothyroidism Pure hypercholesterolemia Surgical History Cataract History of lumbar surgery History of thyroidectomy S/P FIORDALIZA (total abdominal hysterectomy) History of hemicolectomy Rectocele Family History Father No problems noted. Mother Diabetes Stroke Hypertension Brother Lung cancer Social History Housing: Apartment Alcohol intake: never Patient Tobacco Use Status: Never used Tobacco e-Cigarette/Vaping Use: Never Used Second Hand Smoke Exposure: No service: No Current occupational status: employed Current occupational exposures/hazards: No Cognitive needs: No Hearing needs: No Vision needs: Yes Questionnaire Thrive Questionnaire Date Thrive assessed: 01/01/23 JANNETH-7 AMB Questionnaire JANNETH-7 Date JANNETH - 7 assessed: 03/12/23 Source: Developed by Drs. Valdemar Estes, Joanie Oreilly, Charles Huff and colleagues, with an educational kj from [employer]. Review of Systems Const All systems reviewed & are unremarkable except as noted in HPI and below Eyes Reports no additional complaints, Denies change in vision and Denies other visual disturbances Card Denies chest pain at rest, Denies chest pain with activity, Denies edema, Denies irregular heart rhythm, Denies claudication, Denies dyspnea, Denies dyspnea on exertion, Denies orthopnea, Denies paroxysmal nocturnal dyspnea and Denies slow heart rate Resp Denies cough, Denies dyspnea and Denies dyspnea on exertion GI Denies abdominal pain, Denies change in bowel habits, Denies excessive flatus, Denies nausea and Denies vomiting Denies urinary incontinence, Denies urinary hesitancy and Denies urinary urgency Musc Denies abnormal gait, Denies atrophy, Denies deformity, Reports arthralgias and Reports limited range of motion Skin/Breast Denies bleeding lesions, Denies changing lesions and Denies rash Neuro Denies abnormal gait, Denies behavioral changes and Denies lack of coordination Psych Denies behavioral changes Physical exam (Primary Care) Vital Signs: Last Vital Signs Pulse 68 11/28/23 10:48 BP 112/70 11/28/23 10:48 Pulse Ox 97 11/28/23 10:48 Oxygen Delivery Method Room Air 11/28/23 10:48 BMI result Body Mass Index 24.8 Tobacco/Smoking Status: Tobacco use Status Tobacco use date assessed 01/01/23 11/28/23 10:53 Patient Tobacco Use Status Never used Tobacco 11/28/23 10:53 Tobacco use type 08/27/22 17:42 e-Cigarette/Vaping Use Never Used 11/28/23 10:53 Thrive Assessment: Date of Thrive Assessment Date Thrive assessed 01/01/23 11/28/23 10:53 Eyes General: appearance normal, both eyes and all related structures Eyelids: Yes eyelids normal Conjunctivae: conjunctivae normal Neck Neck: Yes normal visual inspection and Yes supple Resp Effort & Inspection: normal respiratory effort Auscultation: clear to auscultation bilaterally Cardio Jugular venous distension: no JVD Rate: regular rate Rhythm: regular rhythm Heart sounds: S1 normal heart sound present and S2 normal heart sound present Extrem Right upper extremity: shoulder/upper arm Details: tenderness and abnormal ROM Details: pain with active ROM Details: in ABduction and in extension Psych Appearance: grossly normal Assessment and Plan Assessment & Plan (1) Pre-op evaluation: Code(s): Z01.818 - Encounter for other preprocedural examination Plan: Patient is medically clear for right rotator cough tear repair scheduled for 01/01/2024. (2) Moderate recurrent major depression: Code(s): F33.1 - Major depressive disorder, recurrent, moderate Plan: In remission. (3) Essential hypertension: Code(s): I10 - Essential (primary) hypertension Plan: Continue chlorthalidone and year but start time. Blood pressure goal is equal or less than 130/80. (4) Acquired hypothyroidism: Code(s): E03.9 - Hypothyroidism, unspecified Plan: Continue levothyroxine. (5) Pure hypercholesterolemia: Code(s): E78.00 - Pure hypercholesterolemia, unspecified Plan: Continue statins. Orders: Orders Potassium Today E87.6 - Hypokalemia Medications: New potassium chloride ER 10 mEq PO DAILY 5 days 5 caps 0RF Refilled irbesartan 300 mg PO DAILY 90 days 90 tabs 3RF Coding Level of Care Code Est Pt Level 4 (95451) Diagnoses Pre-op evaluation Z01.818 Moderate recurrent major depression F33.1 Essential hypertension I10 Acquired hypothyroidism E03.9 Pure hypercholesterolemia E78.00 Time Spent (min) 24
[2023-11-28 10:48] VITALS: BP 112/70; PULSE 68; O2SAT 97; BMI 24.8
== END 2023-11-28 11:06 | disposition home or self-care (01) ==
PROVIDERS: PCP Internal Medicine; Visit Provider Internal Medicine
DX: Z01.818 Encounter for other preprocedural examination (principal); F33.1 Major depressive disorder, recurrent, moderate; I10 Essential (primary) hypertension; E03.9 Hypothyroidism, unspecified; E78.00 Pure hypercholesterolemia, unspecified
CPT/HCPCS: 99214

== ENCOUNTER 2023-12-13 12:13 | Outpatient (REF) | payer OTHER, SELFPAY ==
[2023-12-13 14:29] LABS: Potassium 3.1 mmol/L (3.3-5.1)
== END 2023-12-13 12:14 | disposition home or self-care (01) ==
LOC: HO.LAB 12:13
PROVIDERS: PCP Internal Medicine; Visit Provider Internal Medicine
DX: E87.6 Hypokalemia (principal)
CPT/HCPCS: 36415; 84132

== ENCOUNTER → 2023-12-26 10:03 | Outpatient (BNVA) | payer OTHER, SELFPAY | PROVIDERS: PCP Internal Medicine; Visit Provider Physician Assistant ==

== ENCOUNTER 2024-01-01 08:24 | Day surgery (SDC) | payer OTHER, SELFPAY ==
[2023-12-30 07:14] VITALS: BMI 24.8
--- NOTE | 2023-12-31 09:06 | P.CONAN_ITS ---
Documented by User: Nury Miller NP 12/31/23 09:08 HPI - Anesthesia Eval Consult details Narrative: 68yo F for Right Arthroscopic Rotator Cuff Repair Medically cleared PMFSH Active Problems Active Problems: All Active Problems (Updated 11/28/23 @ 11:02 by Latisha Toney MD) Hypokalemia (Acute) Pre-op evaluation (Acute) Complete rotator cuff tear (Acute) Traumatic partial tear of right biceps tendon (Acute) Right rotator cuff tear arthropathy (Acute) Dysfunction of right rotator cuff (Acute) Pelvic pain in female (Acute) Right hip pain (Acute) Bursitis of right shoulder (Acute) Right shoulder pain (Acute) JANNETH (generalized anxiety disorder) (Acute) Moderate recurrent major depression (Acute) Thoracic spine pain (Acute) Neck pain (Acute) Abscess (Acute) Physical exam (Acute) Pressure in head (Acute) Varicose veins of right lower extremity with inflammation (Acute) Venous insufficiency (Acute) Leg numbness (Acute) Headache (Acute) Pain of right clavicle (Acute) Overweight (BMI 25.0-29.9) (Acute) Osteopenia (Acute) Benign paroxysmal vertigo (Acute) Postmenopausal (Acute) Arthritis (Acute) GERD (gastroesophageal reflux disease) (Acute) Essential hypertension (Acute) Anxiety (Acute) Acquired hypothyroidism (Acute) Pure hypercholesterolemia (Acute) Past Medical History Medical History Dysfunction of right rotator cuff Pain of right clavicle Overweight (BMI 25.0-29.9) Osteopenia Benign paroxysmal vertigo Postmenopausal Arthritis GERD (gastroesophageal reflux disease) Essential hypertension Anxiety Acquired hypothyroidism Pure hypercholesterolemia Family History Family History Father No problems noted. Mother Diabetes Stroke Hypertension Brother Lung cancer Surgical History Surgical History Cataract History of lumbar surgery History of thyroidectomy S/P FIORDALIZA (total abdominal hysterectomy) History of hemicolectomy Rectocele Social History Social History Housing: Apartment Alcohol intake: never Patient Tobacco Use Status: Never used Tobacco e-Cigarette/Vaping Use: Never Used Second Hand Smoke Exposure: No Use of substances other than those prescribed or required for medical reasons: No Are you DNR?: No Advance Directives: No Advance Directives Information Provided: Yes service: No Current occupational status: employed Current occupational exposures/hazards: No Cognitive needs: No Hearing needs: No Vision needs: Yes Meds Allergies Allergy/AdvReac Type Severity Reaction Status Date / Time citalopram Allergy Intermediate hives Verified 12/26/23 10:05 duloxetine Allergy Intermediate nausea Verified 12/26/23 10:05 gabapentin Allergy Intermediate somnelence Verified 12/26/23 10:05 latex [LATEX] Allergy Intermediate RASH Verified 12/26/23 10:05 lisinopril [LISINOPRIL] Allergy Intermediate COUGH Verified 12/26/23 10:05 sulfamethoxazole Allergy Intermediate RASH Verified 12/26/23 10:05 [From BACTRIM] tramadol [TRAMADOL] Allergy Intermediate ITCHY, rash Verified 12/26/23 10:05 trimethoprim [From BACTRIM] Allergy Intermediate RASH Verified 12/26/23 10:05 sertraline Allergy Hives Verified 12/26/23 10:05 Exam Height,Weight and Vital Signs: Height 4 ft 11 in Weight 55.792 kg Pertinent Lab Results Pertinent Lab Results: Laboratory Tests 11/22/23 12/13/23 06:53 12:24 WBC 7.0 Hgb 12.1 Hct 35.4 L Plt Count 241 Sodium 141 Potassium 3.1 L Chloride 101 Carbon Dioxide 31 H BUN 27 H Creatinine 0.86 Narrative Narrative: EKG 11/2023 Vent. Rate : 052 BPM Atrial Rate : 052 BPM P-R Int : 192 ms QRS Dur : 084 ms QT Int : 444 ms P-R-T Axes : 064 016 059 degrees QTc Int : 412 ms Sinus bradycardia Otherwise normal ECG When compared with ECG of 05-NOV-2022 10:51, Nonspecific T wave abnormality no longer evident in Inferior leads Documented by User: Lore Srivastava MD 01/01/24 09:03 [facility] Past Medical History Medical History Dysfunction of right rotator cuff Pain of right clavicle Overweight (BMI 25.0-29.9) Osteopenia Benign paroxysmal vertigo Postmenopausal Arthritis GERD (gastroesophageal reflux disease) Essential hypertension Anxiety Acquired hypothyroidism Pure hypercholesterolemia Family History Family History Father No problems noted. Mother Diabetes Stroke Hypertension Brother Lung cancer Family history of problems with anesthesia: No Surgical History Surgical History Cataract History of lumbar surgery History of thyroidectomy S/P FIORDALIZA (total abdominal hysterectomy) History of hemicolectomy Rectocele History of Problems with Anesthesia: No Social History Social History Housing: Apartment Alcohol intake: never Patient Tobacco Use Status: Never used Tobacco e-Cigarette/Vaping Use: Never Used Second Hand Smoke Exposure: No Use of substances other than those prescribed or required for medical reasons: No Are you DNR?: No Advance Directives: No Advance Directives Information Provided: Yes service: No Current occupational status: employed Current occupational exposures/hazards: No Cognitive needs: No Hearing needs: No Vision needs: Yes Meds Allergies Allergy/AdvReac Type Severity Reaction Status Date / Time citalopram Allergy Intermediate hives Verified 12/26/23 10:05 duloxetine Allergy Intermediate nausea Verified 12/26/23 10:05 gabapentin Allergy Intermediate somnelence Verified 12/26/23 10:05 latex [LATEX] Allergy Intermediate RASH Verified 12/26/23 10:05 lisinopril [LISINOPRIL] Allergy Intermediate COUGH Verified 12/26/23 10:05 sulfamethoxazole Allergy Intermediate RASH Verified 12/26/23 10:05 [From BACTRIM] tramadol [TRAMADOL] Allergy Intermediate ITCHY, rash Verified 12/26/23 10:05 trimethoprim [From BACTRIM] Allergy Intermediate RASH Verified 12/26/23 10:05 sertraline Allergy Hives Verified 12/26/23 10:05 Exam Airway Mallampati Class: II TM Dist: <=3cm Neck ROM: Full Heart: rrr Lungs: cta Assessment and Plan Assessment Anesthesia Assessment: Anesthesia Plan Discussed and Chart Reviewed Final Anesthetic Review Family History of Problems with Anesthesia: No History of Problems with Anesthesia: No NPO: Yes ASA Class: II Final Preanesthetic Review: No Changes in Pt Med Stat, Meds/Allgs Chart Reviewed, Consent Obtained/Reviewed and Anes Risks/Benef Reviewed Patient Risk: Intermediate Procedure Risk: Intermediate Anesthetic Plan Anesthetic Plan: GA and Regional Block Disposition: Standard PACU
[2024-01-01] VITALS (16 sets, daily range): BP systolic 112–156; BP diastolic 57–74; PULSE 42–60; RESP 12–18; TEMP 36.1–36.4; O2SAT 97–100; BMI 25.5
[2024-01-01] MEDS: Lactated Ringers 1,000 ML 100 ML IVCONT (09:04)
--- NOTE | 2024-01-01 09:04 | PC.NURSE ---
left forearm iv inserted genao after insertion. no infiltration noted. applied ice pack for comfort.
--- NOTE | 2024-01-01 09:33 | MHC.SHP ---
Pre-Procedural Eval Section A - 24 Hr Update-Section A only Date of Service: 01/01/24 The patient is an INPATIENT: No Changes since office visit: No Cold of Flu in the past 2 weeks, No New Medical Problems, No Changes in Medication and No Patient answered all questions The patient has been examined within 24 hours of the surgical procedure. The History & Physical has been completed within 30 days and I have reviewed it.: Yes Section B - Complete if H&P > 30 days Chief Complaint: Unspecified rotator cuff tear or rupture of right Allergies: Allergies Allergy/AdvReac Type Severity Reaction Status Date / Time citalopram Allergy Intermediate hives Verified 12/26/23 10:05 duloxetine Allergy Intermediate nausea Verified 12/26/23 10:05 gabapentin Allergy Intermediate somnelence Verified 12/26/23 10:05 latex [LATEX] Allergy Intermediate RASH Verified 12/26/23 10:05 lisinopril [LISINOPRIL] Allergy Intermediate COUGH Verified 12/26/23 10:05 sulfamethoxazole Allergy Intermediate RASH Verified 12/26/23 10:05 [From BACTRIM] tramadol [TRAMADOL] Allergy Intermediate ITCHY, rash Verified 12/26/23 10:05 trimethoprim [From BACTRIM] Allergy Intermediate RASH Verified 12/26/23 10:05 sertraline Allergy Hives Verified 12/26/23 10:05 Plan I have reviewed the history and physical and performed a pertinent physical examination on my patient. No changes have occurred unless specified. Time Spent With Patient Time: Total time managing care of this patient today ____ minutes.
--- NOTE | 2024-01-01 13:17 | P.BOP_ITS ---
Brief Operative Note Date of Service: 01/01/24 Pre-op diagnosis: Massive rotator cuff tear Post-op diagnosis: same Procedure: Rotator cuff repair- supraspinatus and Subscapularis Implants: Mg and Nephew Helacoil x 3 Surgeon: Pieter Childs MD Anesthesia: GETA and regional Was an Embossing Press Operator used for this Procedure?: Yes Embossing Press Operator: Isa Bravo Estimated blood loss (mL): 10 IV fluids (mL): 1,000 Pathology: none sent Condition: stable Disposition: PACU
[2024-01-01] MEDS: fentaNYL citrate/PF 100 MCG/2 ML VIAL 25 MCG IVPUSH ×2 (14:02→14:18)
[2024-01-01] MEDS: oxyCODONE HCl Immed Release 5 MG TABLET PO (14:12)
--- NOTE | 2024-01-01 15:42 | PC.NURSE ---
PATIENT REPORTED CHEST PAIN/DISCOMFORT TO RIGHT SIDE OF CHEST AREA. THIS RN HAD DR. DASILVA REASSESS PATIENT..... VITAL SIGNS, BP 151/86, HR 45, 02 SAT 98%, R 17. PATIENT BROUGHT BACK TO PACU FOR FURTHER ASSESSMENT AND MONITORING PER DR. DASILVA. GIMP TACKER ALSO REINFORCED DRESSING R/T LEAKAGE. DR. CANDELARIO TO GO SEE PATIENT.
--- NOTE | 2024-01-01 15:49 | ECG_ITS ---
Test Reason : CHEST PAIN Blood Pressure : / mmHG Vent. Rate : 049 BPM Atrial Rate : 049 BPM P-R Int : 200 ms QRS Dur : 090 ms QT Int : 464 ms P-R-T Axes : 064 005 -03 degrees QTc Int : 419 ms Sinus bradycardia Low voltage QRS Cannot rule out Inferior infarct , age undetermined Abnormal ECG When compared to the previous EKG of Possible Inferior infarct changes are present Referred By: Geno Jenkins Electronically Signed By:JL ANDRE MD
--- NOTE | 2024-01-06 08:52 | P.OP_ITS ---
Operative Note Operative Note Date of Service: 01/01/24 Narrative: Date of Service: 01/01/24 Pre-op diagnosis: Massive rotator cuff tear Post-op diagnosis: same Procedure: Rotator cuff repair- supraspinatus and Subscapularis Implants: Mg and Nephew Helacoil x 3 Surgeon: Pieter Childs MD Anesthesia: GETA and regional Was an Single Needle Tufting Machine Operator used for this Procedure?: Yes Single Needle Tufting Machine Operator: Isa Bravo Estimated blood loss (mL): 10 IV fluids (mL): 1,000 Pathology: none sent Condition: stable Disposition: PACU Procedure in detail: Patient was brought to the operating room and placed the the beach chair position. All bony prominences were well padded and the limb was prepped and savanah ped in standard sterile fashion. A time out was called to identify proper site, proper procedure and proper surgeon. IV antibiotics per weight were administered. I began by making a posterolateral stab incision with a 15 blade. A blunt trochar was placed into the glenohumeral joint and I insufflated the joint with saline and a 30 degree arthroscope was placed. I established an outside- in anterior portal just distal to the biceps tendon. I then began my inspection of the glenohumeral joint. There was a degenerative SLAP tear at the biceps anchor and the biceps had a longitudinal split extending to the groove. There were minimal cartilage changes at the inferior glenoid without humeral head changes. There was a full thickness undersurface RTC tear. The subcapularis had a high grade partial tear. The subscapularis was mobil. I debrided the loose cartilage of the glenoid and the degenerative labral tearing and performed a biceps tenotomy. I released the subscapularis medially and anterior and inferiorly. I then placed two looped sutures throguh the lateral free edge of the tendon and , after debriding the insertion, dunked the tendon into a 5.0 Helacoil knotless. I was satisfied with the repair. I then removed the trochar and entered the subacromial space. A direct lateral portal was then established and I performed a bursectomy. The cuff was then examined. There was a full thickness tear of the supraspinatus with retraction. The tear was suprisingly mobile but still retracted. I used a conbination of shaver and ablation to free up the supraspinatus anteriorly, posteriorly and medially. I placed two medial row double loaded anchors after using a tap just adjacent to the articular cartilage and then brought the suture limbs ( 8) through the medial cuff. I then debrided the bare area down to bleeding bone and, using a cross bridge configuration, brought 4 limbs to each of two lateral 5.5 anchors. This re-approximated the cuff anatomy near-anatomically. I performed a 5mm subacromial decompression with a analia. Once I was satisfied with the repair final images were captured and I removed all instrumentation. Portals were closed with nylon. Patient was placed in an abduction sling, extubated and brought to the recovery room in stable condition. There were no known complications. Large [facility] repair protocol.
== END 2024-01-01 16:30 | disposition home or self-care (01) ==
LOC: HO.SSS 08:25
PROVIDERS: PCP Internal Medicine; Visit Provider Orthopaedic Surgery
PROC: (CPT 29827; principal; 2024-01-01 10:20)
DX: M75.121 Complete rotator cuff tear or rupture of right shoulder, not specified as traumatic (principal); M81.0 Age-related osteoporosis without current pathological fracture; I10 Essential (primary) hypertension; E78.00 Pure hypercholesterolemia, unspecified; E87.6 Hypokalemia; E89.0 Postprocedural hypothyroidism; F33.1 Major depressive disorder, recurrent, moderate; F41.1 Generalized anxiety disorder; Z79.899 Other long term (current) drug therapy; Z88.2 Allergy status to sulfonamides; Z88.8 Allergy status to other drugs, medicaments and biological substances; Z91.040 Latex allergy status; Z90.49 Acquired absence of other specified parts of digestive tract; Z98.890 Other specified postprocedural states
CPT/HCPCS: 29827; 29826; 29822; 93005; C1713; J0171; J0330; J0665; J0690; J2250; J2704; J3010

== ENCOUNTER → 2024-01-01 08:24 | Outpatient (BNV) | payer OTHER, SELFPAY | PROVIDERS: PCP Internal Medicine; Visit Provider Orthopaedic Surgery | DX: S46.011A Strain of muscle(s) and tendon(s) of the rotator cuff of right shoulder, initial encounter (principal); S43.431A Superior glenoid labrum lesion of right shoulder, initial encounter | CPT/HCPCS: 29827 ==

== ENCOUNTER → 2024-01-01 15:49 | Outpatient (BNV) | payer OTHER, SELFPAY | PROVIDERS: PCP Internal Medicine; Visit Provider Internal Medicine Cardiovascular Disease | DX: R00.1 Bradycardia, unspecified (principal); R94.31 Abnormal electrocardiogram [ECG] [EKG] | CPT/HCPCS: 93010 ==

== ENCOUNTER 2024-01-07 12:32 | Outpatient (AMB) | payer OTHER, SELFPAY ==
--- NOTE | 2024-01-07 13:09 | MHC.OFFVIS ---
Intake Intake Visit Reasons: PO Right RTC Repair 01/01/24 NE Intake Note: Sandy is a 68 year old right hand dominant female who presents today for a post op s/p right RTC repair 01/01/24 NE. Patient reports still having pain on the right shoulder. She states that she started PT yesterday and it went well. Patient is having concerns of not being able to have a boil movement since last Saturday. Allergies citalopram Allergy (Intermediate, Verified 01/07/24 13:10) hives duloxetine Allergy (Intermediate, Verified 01/07/24 13:10) nausea gabapentin Allergy (Intermediate, Verified 01/07/24 13:10) somnelence latex [LATEX] Allergy (Intermediate, Verified 01/07/24 13:10) RASH lisinopril [LISINOPRIL] Allergy (Intermediate, Verified 01/07/24 13:10) COUGH sulfamethoxazole [From BACTRIM] Allergy (Intermediate, Verified 01/07/24 13:10) RASH tramadol [TRAMADOL] Allergy (Intermediate, Verified 01/07/24 13:10) ITCHY, rash trimethoprim [From BACTRIM] Allergy (Intermediate, Verified 01/07/24 13:10) RASH sertraline Allergy (Verified 01/07/24 13:10) Hives HPI PO Right RTC Repair 01/01/24 NE HPI Details 68-year-old right hand dominant female who presents in the office today 6 days status post right shoulder rotator cuff repair - supraspinatus and subscapularis, which was performed on 01/01/[address] Childs. The patient reports she is still having pain in the right shoulder. She states she began physical therapy yesterday and states it went well. Patient reports a concern of not having a bowel movement since last 12/31/2023. [facility] Medical History Dysfunction of right rotator cuff Pain of right clavicle Overweight (BMI 25.0-29.9) Osteopenia Benign paroxysmal vertigo Postmenopausal Arthritis GERD (gastroesophageal reflux disease) Essential hypertension Anxiety Acquired hypothyroidism Pure hypercholesterolemia Surgical History Cataract History of lumbar surgery History of thyroidectomy S/P FIORDALIZA (total abdominal hysterectomy) History of hemicolectomy Rectocele Family History Father No problems noted. Mother Diabetes Stroke Hypertension Brother Lung cancer Social History Housing: Apartment Alcohol intake: never Patient Tobacco Use Status: Never used Tobacco e-Cigarette/Vaping Use: Never Used Second Hand Smoke Exposure: No service: No Current occupational status: employed Current occupational exposures/hazards: No Cognitive needs: No Hearing needs: No Vision needs: Yes Review of Systems Const All systems reviewed & are unremarkable except as noted in HPI and below Physical Exam Const General: cooperative, healthy appearing and no acute distress Resp Effort & Inspection: normal respiratory effort and able to speak in complete sentences Cardio Rate: regular rate Peripheral pulses: Peripheral pulses 2+ throughout GI Palpation (GI): Soft to palpation Skin Lesions: no lesions Rashes: no rashes Extrem Other: Right shoulder: Incision site is clean, dry, and intact. Sutures intact. No surrounding erythema or drainage. No signs of infection. Forward flexion and abduction to 45 degrees. External rotation to neutral. NVI. Assessment & Plan Assessment & Plan (1) Complete rotator cuff tear: Comment: Right shoulder rotator cuff repair ? supraspinatus and subscapularis 01/01/2024 Dr. Pieter Childs Code(s): M75.120 - Complete rotator cuff tear or rupture of unspecified shoulder, not specified as traumatic Plan Ms. Alston is a 68-year-old right hand dominant female who presents in the office today 6 days status post right shoulder rotator cuff repair ? supraspinatus and subscapularis, which was performed on 01/01/[address] Childs. The patient reports she is still having pain in the right shoulder. She states she began physical therapy yesterday and states it went well. Patient reports a concern of not having a bowel movement since last 12/31/2023. Sutures were removed and steri-stripes were applied. The patient was instructed she will remain in the sling at all time until she is 6 weeks. The patient did attend her first physical therapy session yesterday, 01/06/2024. She does present with a complaint of constipation. I did send a prescription for stool softener prior to the patient surgery with anticipation that this would occur due to history of rectocele and constipation. The patient reports she has been taking the medication as prescribed, but has not had a bowel movement and does reports discomfort in the abdomen. She is passing gas at this time, therefore, I recommend over the counter magnesium citrate to help with moving her bowels. If the magnesium citrate does not help alleviate her discomfort and allow her to have a bowel movement she will contact the office. I have also instructed her she should report to the emergency department for further evaluation and treatment. She understands and accepts. Follow up will be in 4 weeks, or sooner if needed. Patient Instructions: Scribed by Jenni Vidal medical massage therapist, for Isa Bravo PA-C on 01/07/2024 at 12:45 pm, EST. Coding Level of Care Code Global (63723) Diagnoses Complete rotator cuff tear M75.120
== END 2024-01-07 13:36 | disposition home or self-care (01) ==
PROVIDERS: PCP Internal Medicine; Visit Provider Physician Assistant
DX: M75.120 Complete rotator cuff tear or rupture of unspecified shoulder, not specified as traumatic (principal)
CPT/HCPCS: 99024

== ENCOUNTER → 2024-01-07 12:32 | Outpatient (BNVA) | payer OTHER, SELFPAY | PROVIDERS: PCP Internal Medicine; Visit Provider Physician Assistant ==

== ENCOUNTER 2024-02-03 11:05 | Outpatient (AMB) | payer OTHER, SELFPAY ==
--- NOTE | 2024-02-03 11:29 | A.OFFVIS_ITS ---
Intake Intake Visit Reasons: PO Right RTC Repair 01/01/24 NE Intake Note: Sandy is a 68 year old right hand dominant female who presents today for a post op s/p right RTC repair 01/01/24 NE. Patient reports that she is doing well postoperatively, she has no concerns at this time. Most of her pain is felt at night while sleeping. Continues to work with physical therapy Allergies citalopram Allergy (Intermediate, Verified 02/03/24 11:42) hives duloxetine Allergy (Intermediate, Verified 02/03/24 11:42) nausea gabapentin Allergy (Intermediate, Verified 02/03/24 11:42) somnelence latex [LATEX] Allergy (Intermediate, Verified 02/03/24 11:42) RASH lisinopril [LISINOPRIL] Allergy (Intermediate, Verified 02/03/24 11:42) COUGH sulfamethoxazole [From BACTRIM] Allergy (Intermediate, Verified 02/03/24 11:42) RASH tramadol [TRAMADOL] Allergy (Intermediate, Verified 02/03/24 11:42) ITCHY, rash trimethoprim [From BACTRIM] Allergy (Intermediate, Verified 02/03/24 11:42) RASH sertraline Allergy (Verified 02/03/24 11:42) Hives HPI PO Right RTC Repair 01/01/24 NE HPI Details Sandy is a 68 year old woman who returns ~6 weeks S/P right RTC repair She says she is doing well overall and is happy with the results of her surgery. She has been attending PT and wearing her sling as instructed. She reports some pain primarily at night. [facility] Medical History Dysfunction of right rotator cuff Pain of right clavicle Overweight (BMI 25.0-29.9) Osteopenia Benign paroxysmal vertigo Postmenopausal Arthritis GERD (gastroesophageal reflux disease) Essential hypertension Anxiety Acquired hypothyroidism Pure hypercholesterolemia Surgical History Cataract History of lumbar surgery History of thyroidectomy S/P FIORDALIZA (total abdominal hysterectomy) History of hemicolectomy Rectocele Family History Father No problems noted. Mother Diabetes Stroke Hypertension Brother Lung cancer Social History Housing: Apartment Alcohol intake: never Patient Tobacco Use Status: Never used Tobacco e-Cigarette/Vaping Use: Never Used Second Hand Smoke Exposure: No service: No Current occupational status: employed Current occupational exposures/hazards: No Cognitive needs: No Hearing needs: No Vision needs: Yes Review of Systems Const All systems reviewed & are unremarkable except as noted in HPI and below Physical Exam Const General: no acute distress, alert and awake Orientation/consciousness: patient oriented x3 HEENT Head: Yes normocephalic and Yes atraumatic Eyes EOM: EOMs intact bilaterally Resp Effort & Inspection: normal respiratory effort and able to speak in complete sentences Cardio Jugular venous distension: no JVD Skin General skin exam: turgor normal Rashes: no rashes Neuro General: patient oriented x3 Extrem Other: inc c/d/i ER to 20 passive abd to 90 Psych Appearance: grossly normal Affect: normal affect Attitude: cooperative Assessment & Plan Assessment & Plan (1) S/P rotator cuff repair: Code(s): Z98.890 - Other specified postprocedural states Plan: [place] s/p RTC repair. May continue PT and out of sling. f/u 6 weeks Plan Prepared for Pieter Childs MD by Humza Celaya, medical sales associate, on 02/03/24 at 11:34 AM, EST. Coding Level of Care Code Global (67697) Diagnoses S/P rotator cuff repair Z98.890
== END 2024-02-03 12:03 | disposition home or self-care (01) ==
PROVIDERS: PCP Internal Medicine; Visit Provider Orthopaedic Surgery
DX: Z98.890 Other specified postprocedural states (principal)
CPT/HCPCS: 99024

== ENCOUNTER → 2024-02-03 11:05 | Outpatient (BNVA) | payer OTHER, SELFPAY | PROVIDERS: PCP Internal Medicine; Visit Provider Orthopaedic Surgery ==

== ENCOUNTER 2024-02-19 12:26 | Outpatient (AMB) | payer OTHER, SELFPAY ==
--- NOTE | 2024-02-19 13:10 | A.OFFVIS_ITS ---
Intake Vital Signs 02/19/24 13:22 Height 4 ft 11 in Weight 122 lb 8 oz BMI 24.7 BP 177/77 H Blood Pressure Location Lt brachial Position Sitting Pulse 57 Intake Visit Reasons: constipation Intake Note: Patient is seen in office for evaluation and treatment of constipation. Pt c/o: straining, constipation bm every x4 days, painful to have a bm, denies bleeding, had x3 surgeries for rectocele, admits to weakness, denies nausea, vomit, diarrhea, taking Rx for constipation with no relief- also taking Colon Service Dog Trainer every other day Complaint Evaluation Supervisor Required: No Accompanied by: Self / Same As Patient Allergies citalopram Allergy (Intermediate, Verified 02/19/24 13:12) hives duloxetine Allergy (Intermediate, Verified 02/19/24 13:12) nausea gabapentin Allergy (Intermediate, Verified 02/19/24 13:12) somnelence latex [LATEX] Allergy (Intermediate, Verified 02/19/24 13:12) RASH lisinopril [LISINOPRIL] Allergy (Intermediate, Verified 02/19/24 13:12) COUGH sulfamethoxazole [From BACTRIM] Allergy (Intermediate, Verified 02/19/24 13:12) RASH tramadol [TRAMADOL] Allergy (Intermediate, Verified 02/19/24 13:12) ITCHY, rash trimethoprim [From BACTRIM] Allergy (Intermediate, Verified 02/19/24 13:12) RASH sertraline Allergy (Verified 02/19/24 13:12) Hives Medication List - Last Reconciled 02/19/24 by Carlos Eduardo Nayak MD atorvastatin 20 mg PO BEDTIME 90 days cetirizine (Allergy Relief (cetirizine)) 10 mg PO DAILY PRN 30 days chlorthalidone 25 mg PO DAILY 90 days clonazepam 0.5 mg PO DAILY PRN 30 days docusate sodium (Colace) 200 mg (2 x 100 mg) PO DAILY 30 days irbesartan 300 mg PO DAILY 90 days levothyroxine 88 mcg PO DAILY 90 days meloxicam 15 mg PO DAILY omeprazole 20 mg PO DAILY 90 days potassium chloride ER 10 mEq PO DAILY 5 days simethicone (Gas Relief (simethicone)) 125 mg PO TID-QID PRN 30 days [facility] Medical History (Updated 02/19/24 @ 13:34 by Carlos Eduardo Nayak MD) Chronic constipation Dysfunction of right rotator cuff Pain of right clavicle Overweight (BMI 25.0-29.9) Osteopenia Benign paroxysmal vertigo Postmenopausal Arthritis GERD (gastroesophageal reflux disease) Essential hypertension Anxiety Acquired hypothyroidism Pure hypercholesterolemia Surgical History Cataract History of lumbar surgery History of thyroidectomy S/P FIORDALIZA (total abdominal hysterectomy) History of hemicolectomy Rectocele Family History Father No problems noted. Mother Diabetes Stroke Hypertension Brother Lung cancer Social History Housing: Apartment Alcohol intake: never Patient Tobacco Use Status: Never used Tobacco e-Cigarette/Vaping Use: Never Used Second Hand Smoke Exposure: No service: No Current occupational status: employed Current occupational exposures/hazards: No Cognitive needs: No Hearing needs: No Vision needs: Yes Review of Systems Const Denies chills and Denies fever(s) Card Denies chest pain, Denies dyspnea and Denies dyspnea on exertion Resp Denies cough, Denies dyspnea and Denies dyspnea on exertion GI Denies hematochezia, Denies change in bowel habits and Reports constipation Denies hematuria Musc Denies back pain and Denies limited range of motion Neuro Denies focal weakness and Denies convulsions Psych Denies depression and Denies mood swings Physical Exam Const General: comfortable and no acute distress Orientation/consciousness: patient oriented x3 Neck Neck: Yes no lymphadenopathy Resp Auscultation: clear to auscultation bilaterally Cardio Rhythm: regular rhythm GI Other: Digital rectal exam = no palpable mass in the rectum or anus, good sphincter tone on both resting and squeeze, no fissure, no tenderness no rectocele; no blood; she does have mixed internal external hemorrhoids Palpation (GI): Soft to palpation, nontender and no guarding Neuro General: patient oriented x3 Assessment & Plan Assessment & Plan (1) Chronic constipation: Code(s): K59.09 - Other constipation Plan: She describes constipation as above. She says that often times she would have a bowel movement only once every 4-5 days. She says she has to exert a lot of energy when pushing stools in the bathroom. Digital rectal exam does not reveal any mass or rectocele. Good sphincter tone. She has had 2 surgeries for a rectocele in the past so this may cause some degr ee of dyssynergia. I will start him on Metamucil and I told her to do this twice a day. She will be on Dulcolax as well as MiraLax. She can take Mag citrate every so often if she has had no bowel movement for a few days. I will see her in the office in about a month. Coding Level of Care Code New Pt Level 3 (06101) Diagnoses Chronic constipation K59.09
[2024-02-19 13:22] VITALS: BP 177/77; PULSE 57; BMI 24.7
== END 2024-02-19 13:34 | disposition home or self-care (01) ==
PROVIDERS: PCP Internal Medicine; Visit Provider Surgery
DX: K59.09 Other constipation (principal)
CPT/HCPCS: 99203

== ENCOUNTER → 2024-02-19 12:26 | Outpatient (BNVA) | payer OTHER, SELFPAY | PROVIDERS: PCP Internal Medicine; Visit Provider Surgery ==

== ENCOUNTER 2024-03-02 06:36 | Outpatient (REF) | payer OTHER, SELFPAY ==
[2024-03-02 07:59] LABS: Alanine Aminotransferase 22 U/L (0-31); Albumin Level 3.8 g/dL (3.5-5.0); Alkaline Phosphatase 102 U/L (39-117); Anion Gap 11 (12-20); Aspartate Amino Transferase 21 U/L (5-31); Bilirubin Total 0.4 mg/dL (0.0-1.0); Blood Urea Nitrogen 25 mg/dL (9-16); Calcium 9.7 mg/dL (8.4-10.2); Carbon Dioxide 32 mmol/L (22-29); Chloride 106 mmol/L (96-108); Cholesterol 167 mg/dL (<200); Estimated Glomerular Filt Rate > 60; Glucose Fasting 95 mg/dL (60-99); HDL Cholesterol 51 mg/dL (>40); LDL Cholesterol Calculated 87 mg/dL (<100); Potassium 3.5 mmol/L (3.3-5.1); Sodium 145 mmol/L (135-145); Total Protein 6.6 g/dL (6.5-8.0); Triglycerides 147 mg/dL (<150)
[2024-03-02 08:14] LABS: Thyroid Stimulating Hormone 0.77 uIU/mL (0.32-4.0)
== END 2024-03-02 06:37 | disposition home or self-care (01) ==
LOC: HO.LAB 06:36
PROVIDERS: PCP Internal Medicine; Visit Provider Internal Medicine
DX: E03.9 Hypothyroidism, unspecified (principal); E78.5 Hyperlipidemia, unspecified; I10 Essential (primary) hypertension
CPT/HCPCS: 36415; 80053; 80061; 84443

== ENCOUNTER 2024-03-03 16:25 | Outpatient (AMB) | payer OTHER, SELFPAY ==
[2024-03-03 16:27] VITALS: BP 120/62; BMI 24.8
--- NOTE | 2024-03-03 16:27 | MHC.PC.OV ---
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 Accompanied by: Self / Same As Patient Allergies citalopram Allergy (Intermediate, Verified 03/03/24 17:11) hives duloxetine Allergy (Intermediate, Verified 03/03/24 17:11) nausea gabapentin Allergy (Intermediate, Verified 03/03/24 17:11) somnelence latex [LATEX] Allergy (Intermediate, Verified 03/03/24 17:11) RASH lisinopril [LISINOPRIL] Allergy (Intermediate, Verified 03/03/24 17:11) COUGH sulfamethoxazole [From BACTRIM] Allergy (Intermediate, Verified 03/03/24 17:11) RASH tramadol [TRAMADOL] Allergy (Intermediate, Verified 03/03/24 17:11) ITCHY, rash trimethoprim [From BACTRIM] Allergy (Intermediate, Verified 03/03/24 17:11) RASH sertraline Allergy (Verified 03/03/24 17:11) Hives Medication List - Last Reconciled 03/03/24 by Latisha Toney MD atorvastatin 20 mg PO BEDTIME 90 days cetirizine (Allergy Relief (cetirizine)) 10 mg PO DAILY PRN 30 days chlorthalidone 25 mg PO DAILY 90 days clonazepam 0.5 mg PO DAILY PRN 30 days docusate sodium (Colace) 100 mg PO BID irbesartan 300 mg PO DAILY 90 days levothyroxine 88 mcg PO DAILY 90 days meloxicam 15 mg PO DAILY omeprazole 20 mg PO DAILY 90 days potassium chloride ER 10 mEq PO DAILY 5 days psyllium husk (Metamucil) 1 tbsp PO BID simethicone (Gas Relief (simethicone)) 125 mg PO TID-QID PRN 30 days Tobacco use date assessed: 03/03/24 Fall risk assessment: No Falls in past year Last assessed Fall Risk: 03/03/24 Dental Screening Dental Screen Date: 03/03/24 Did you have a dental visit in the last 12 months?: Yes Did you have a dental problem in the last 6 months where you did not have access to dental care?: No Was dental information given to patient?: Patient has dentist HPI HPI Comments History of Present Illness Details This is a 68-year-old female that comes for her physical exam. Last mammogram was October 2023. Last colonoscopy was 2019 and next colonoscopy will be 2024. No chest pain or shortness of breath. [facility] Medical History (Updated 03/03/24 @ 18:06 by Latisha Toney MD) Moderate recurrent major depression Chronic constipation Dysfunction of right rotator cuff Pain of right clavicle Overweight (BMI 25.0-29.9) Osteopenia Benign paroxysmal vertigo Postmenopausal Arthritis GERD (gastroesophageal reflux disease) Essential hypertension Anxiety Acquired hypothyroidism Pure hypercholesterolemia Surgical History S/P rotator cuff repair Cataract History of lumbar surgery History of thyroidectomy S/P FIORDALIZA (total abdominal hysterectomy) History of hemicolectomy Rectocele Family History Father No problems noted. Mother Diabetes Stroke Hypertension Brother Lung cancer Social History Housing: Apartment Alcohol intake: never Patient Tobacco Use Status: Never used Tobacco e-Cigarette/Vaping Use: Never Used Second Hand Smoke Exposure: No service: No Current occupational status: employed Current occupational exposures/hazards: No Cognitive needs: No Hearing needs: No Vision needs: Yes Questionnaire PHQ-9 Over the last 2 weeks, how often have you been bothered by any of the following problems? 1. Little interest or pleasure in doing things: several days 2. Feeling down, depressed, or hopeless: nearly every day 3. Trouble falling or staying asleep, or sleeping too much: more than half the days 4. Feeling tired or having little energy: not at all 5. Poor appetite or overeating: not at all 6. Feeling bad about yourself - or that you are a failure or have let yourself or your family down: not at all 7. Trouble concentrating on things, such as reading the newspaper or watching television: not at all 8. Moving or speaking so slowly that other people could have noticed. Or the opposite - being so fidgety or restless that you have been moving around a lot more than usual: not at all 9. Thoughts that you would be better off or of hurting yourself in some way: not at all Total score: 6 Depression Screening Interpretation: Positive Depression Screening Follow-up: Existing condition Depression Screening Done: Yes 27299 - PHQ-9 Billing: Yes Source: Developed by Drs. Valdemar Estes, Joanie Oreilly, Charles Huff and colleagues, with an educational kj from [employer]. Thrive Questionnaire Date Thrive assessed: 03/03/24 I am a: Patient What is your living situation today?: I have a steady place to live Within the past 12 months, did the food you bought not last and you didn't have the money to get more?: Never true Within the past 12 months, did you worry whether your food would run out before you got money to buy more?: Never true Do you have trouble paying for medicines?: No Do you have trouble getting transportation to medical appointments?: No Do you have trouble paying your heating and electricity bill?: No Do you have trouble taking care of your child, family member or friend?: No Do you have trouble with day-to-day activities such as bathing, preparing meals, shopping, managing finances, etc.?: No Are you currently unemployed and looking for a job?: No Are you interested in more education?: No Please select the resources that you would like help with: None Currently or been in a relationship where the following occur: no concerns reported THRIVE Score: 0 AUDIT C Alcohol Use Questionnaire (AUDIT-C) 1. How often do you have a drink containing alcohol?: Never Total Score: 0 Score Reviewed/Action Taken: No JANNETH-7 AMB Questionnaire JANNETH-7 Date JANNETH - 7 assessed: 03/03/24 Feeling nervous, anxious, or on edge: 3 = Nearly every day Not being able to stop or control worryin = Several days Worrying too much about different things: 2 = More than half the days Trouble relaxin = Several days Being so restless that it is hard to sit still: 0 = Not at all Becoming easily annoyed or irritable: 2 = More than half the days Feeling afraid as if something awful might happen: 0 = Not at all Total JANNETH-7 score (0-4 normal; 5-9 mild; 10-14 moderate; 15-21 severe): 9 Source: Developed by Drs. Valdemar Estes, Joanie Oreilly, Charles Huff and colleagues, with an educational kj from [employer]. JANNETH-7 Assessment Billing JANNETH-7 Assessment Tool: JANNETH-7 Assessment 71538 Review of Systems Const All systems reviewed & are unremarkable except as noted in HPI and below Eyes Reports no additional complaints, Denies change in vision and Denies other visual disturbances Card Denies chest pain at rest, Denies chest pain with activity, Denies edema, Denies irregular heart rhythm, Denies claudication, Denies dyspnea, Denies dyspnea on exertion, Denies orthopnea, Denies paroxysmal nocturnal dyspnea and Denies slow heart rate Resp Denies cough, Denies dyspnea and Denies dyspnea on exertion GI Denies abdominal pain, Denies change in bowel habits, Denies excessive flatus, Denies nausea and Denies vomiting Denies urinary incontinence, Denies urinary hesitancy and Denies urinary urgency Physical exam (Primary Care) Vital Signs: Last Vital Signs BP 120/62 03/03/24 16:27 BMI result Body Mass Index 24.8 Tobacco/Smoking Status: Tobacco use Status Tobacco use date assessed 03/03/24 03/03/24 16:46 Patient Tobacco Use Status Never used Tobacco 03/03/24 16:30 Tobacco use type 08/27/22 17:42 e-Cigarette/Vaping Use Never Used 03/03/24 16:30 PHQ-9: PHQ-9 Score PHQ-9: Total score 6 03/03/24 17:13 Depression Screening Interpretation: Positive Depression Screening Follow-up: Existing condition Thrive Assessment: Date of Thrive Assessment Date Thrive assessed 03/03/24 03/03/24 16:46 Currently or been in a relationship where the following occur: no concerns reported Const Orientation/consciousness: patient oriented x3 HENMT Head: Yes normal to inspection, Yes normocephalic and Yes atraumatic Ears: external ears normal Eyes General: appearance normal, both eyes and all related structures Eyelids: Yes eyelids normal Conjunctivae: conjunctivae normal Neck Neck: Yes normal visual inspection and Yes supple Resp Effort & Inspection: normal respiratory effort Auscultation: clear to auscultation bilaterally Cardio Jugular venous distension: no JVD Rate: regular rate Rhythm: regular rhythm Heart sounds: S1 normal heart sound present and S2 normal heart sound present GI Inspection: Yes normal to inspection Palpation (GI): Soft to palpation and nontender Auscultation: normal bowel sounds Skin General skin exam: no rashes or lesions noted Neuro General: patient oriented x3 and no focal motor deficits Extrem Right upper extremity: shoulder/upper arm Details: abnormal ROM Psych Appearance: grossly normal Assessment and Plan Assessment & Plan (1) Physical exam: Code(s): Z00.00 - Encounter for general adult medical examination without abnormal findings Plan: Repeat in a year. Orders: Orders Thyroid Stimulating Hormone 6 Months E03.9 - Hypothyroidism, unspecified Coding Level of Care Code Est Pt Prev Care >65y(19002) Diagnoses Physical exam Z00.00 Additional Codes JANNETH-7 Assessment Billing - JANNETH-7 Assessment Tool: JANNETH-7 Assessment 53321 ([id number]) Time Spent (min) 32
== END 2024-03-03 17:30 | disposition home or self-care (01) ==
PROVIDERS: Visit Provider Internal Medicine
DX: Z00.00 Encounter for general adult medical examination without abnormal findings (principal)
CPT/HCPCS: 99397

== ENCOUNTER 2024-03-13 10:47 | Outpatient (AMB) | payer OTHER, SELFPAY ==
--- NOTE | 2024-03-13 10:54 | MHC.OFFVIS ---
Intake Intake Visit Reasons: OV-Right RTC Repair 01/01/24 NE Intake Note: Sandy is a 68 year old female who presents today for a follow up of her right shoulder s/p Right RTC Repair 01/01/24. Patient reports that she is doing well. She has mild pain with ROM and at night. She takes Aleve for her pain but tried to avoid this due to stomach upset Allergies citalopram Allergy (Intermediate, Verified 03/03/24 17:11) hives duloxetine Allergy (Intermediate, Verified 03/03/24 17:11) nausea gabapentin Allergy (Intermediate, Verified 03/03/24 17:11) somnelence latex [LATEX] Allergy (Intermediate, Verified 03/03/24 17:11) RASH lisinopril [LISINOPRIL] Allergy (Intermediate, Verified 03/03/24 17:11) COUGH sulfamethoxazole [From BACTRIM] Allergy (Intermediate, Verified 03/03/24 17:11) RASH tramadol [TRAMADOL] Allergy (Intermediate, Verified 03/03/24 17:11) ITCHY, rash trimethoprim [From BACTRIM] Allergy (Intermediate, Verified 03/03/24 17:11) RASH sertraline Allergy (Verified 03/03/24 17:11) Hives HPI OV-Right RTC Repair 01/01/24 NE HPI Details 10 weeks post op. Improving but slowly. PT compliant. REPLACED BY [facility] Medical History (Updated 03/03/24 @ 18:06 by Latisha Toney MD) Moderate recurrent major depression Chronic constipation Dysfunction of right rotator cuff Pain of right clavicle Overweight (BMI 25.0-29.9) Osteopenia Benign paroxysmal vertigo Postmenopausal Arthritis GERD (gastroesophageal reflux disease) Essential hypertension Anxiety Acquired hypothyroidism Pure hypercholesterolemia Surgical History S/P rotator cuff repair Cataract History of lumbar surgery History of thyroidectomy S/P FIORDALIZA (total abdominal hysterectomy) History of hemicolectomy Rectocele Family History Father No problems noted. Mother Diabetes Stroke Hypertension Brother Lung cancer Social History Housing: Apartment Alcohol intake: never Patient Tobacco Use Status: Never used Tobacco e-Cigarette/Vaping Use: Never Used Second Hand Smoke Exposure: No service: No Current occupational status: employed Current occupational exposures/hazards: No Cognitive needs: No Hearing needs: No Vision needs: Yes Physical Exam Extrem Other: inc c/d/i /120/HP Neg EC Neg lift off (belly) Assessment & Plan Assessment & Plan (1) S/P rotator cuff repair: Code(s): Z98.890 - Other specified postprocedural states Plan: Follow up with me in 3 months, She will contact the office if her symptoms are not improving in the next three weeks as she has concerns of returning to work. Large RTC repair protocol (subscapularis and Supraspinatus) Coding Level of Care Code Est Pt Level 3 (33173) Global (92278) Diagnoses S/P rotator cuff repair Z98.890
== END 2024-03-13 11:05 | disposition home or self-care (01) ==
PROVIDERS: PCP Internal Medicine; Visit Provider Orthopaedic Surgery
DX: S46.011D Strain of muscle(s) and tendon(s) of the rotator cuff of right shoulder, subsequent encounter (principal); Z47.89 Encounter for other orthopedic aftercare
CPT/HCPCS: 99024

== ENCOUNTER → 2024-03-13 10:47 | Outpatient (BNVA) | payer OTHER, SELFPAY | PROVIDERS: PCP Internal Medicine; Visit Provider Orthopaedic Surgery ==

== ENCOUNTER 2024-03-18 12:45 | Outpatient (AMB) | payer OTHER, SELFPAY ==
--- NOTE | 2024-03-18 12:56 | A.OFFVIS_ITS ---
Intake Vital Signs 03/18/24 13:03 Height 4 ft 11 in Weight 123 lb BMI 24.8 BP 173/80 H Blood Pressure Location Lt brachial Position Sitting Pulse 51 Intake Visit Reasons: Chronic constipation, 1 month follow up Intake Note: This patient presents for a one month follow-up for Chronic constipation. Pt c/o; reports no complaints. 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 Accompanied by: Self / Same As Patient Allergies citalopram Allergy (Intermediate, Verified 03/18/24 13:04) hives duloxetine Allergy (Intermediate, Verified 03/18/24 13:04) nausea gabapentin Allergy (Intermediate, Verified 03/18/24 13:04) somnelence latex [LATEX] Allergy (Intermediate, Verified 03/18/24 13:04) RASH lisinopril [LISINOPRIL] Allergy (Intermediate, Verified 03/18/24 13:04) COUGH sulfamethoxazole [From BACTRIM] Allergy (Intermediate, Verified 03/18/24 13:04) RASH tramadol [TRAMADOL] Allergy (Intermediate, Verified 03/18/24 13:04) ITCHY, rash trimethoprim [From BACTRIM] Allergy (Intermediate, Verified 03/18/24 13:04) RASH sertraline Allergy (Verified 03/18/24 13:04) Hives Medication List - Last Reconciled 03/18/24 by Carlos Eduardo Nayak MD atorvastatin 20 mg PO BEDTIME 90 days cetirizine (Allergy Relief (cetirizine)) 10 mg PO DAILY PRN 30 days chlorthalidone 25 mg PO DAILY 90 days clonazepam 0.5 mg PO DAILY PRN 30 days docusate sodium (Colace) 100 mg PO BID irbesartan 300 mg PO DAILY 90 days levothyroxine 88 mcg PO DAILY 90 days meloxicam 15 mg PO DAILY omeprazole 20 mg PO DAILY 90 days potassium chloride ER 10 mEq PO DAILY 5 days psyllium husk (Metamucil) 1 tbsp PO BID simethicone (Gas Relief (simethicone)) 125 mg PO TID-QID PRN 30 days HPI Chronic constipation, 1 month follow up HPI Details I would seen her last month because of chronic constipation. I had prescribed her stool softeners as well as a fiber supplement. She says that she is now feeling much better. She says her bowel movements are much more regular. She is happy currently that she does not seem to have significant GI complaints. [facility] Medical History Moderate recurrent major depression Chronic constipation Dysfunction of right rotator cuff Pain of right clavicle Overweight (BMI 25.0-29.9) Osteopenia Benign paroxysmal vertigo Postmenopausal Arthritis GERD (gastroesophageal reflux disease) Essential hypertension Anxiety Acquired hypothyroidism Pure hypercholesterolemia Surgical History S/P rotator cuff repair Cataract History of lumbar surgery History of thyroidectomy S/P FIORDALIZA (total abdominal hysterectomy) History of hemicolectomy Rectocele Family History Father No problems noted. Mother Diabetes Stroke Hypertension Brother Lung cancer Social History Housing: Apartment Alcohol intake: never Patient Tobacco Use Status: Never used Tobacco e-Cigarette/Vaping Use: Never Used Second Hand Smoke Exposure: No service: No Current occupational status: employed Current occupational exposures/hazards: No Cognitive needs: No Hearing needs: No Vision needs: Yes Review of Systems Const Denies chills and Denies fever(s) Card Denies chest pain, Denies dyspnea and Denies dyspnea on exertion Resp Denies cough, Denies dyspnea and Denies dyspnea on exertion GI Denies hematochezia and Denies change in bowel habits Denies hematuria Musc Denies back pain and Denies limited range of motion Neuro Denies focal weakness and Denies convulsions Psych Denies depression and Denies mood swings Physical Exam Vital Signs: Last Vital Signs Pulse 51 03/18/24 13:03 BP 173/80 H 03/18/24 13:03 BMI result Body Mass Index 24.8 Const General: comfortable and no acute distress Resp Effort & Inspection: normal respiratory effort GI Palpation (GI): Soft to palpation, not firm and nontender Assessment & Plan Assessment & Plan (1) Chronic constipation: Code(s): K59.09 - Other constipation Plan: She has improved significantly with Metamucil, Colace as well as MiraLax. She now says that her bowel movements are much improved. She denies any significant constipation and says she goes regularly She continues with her current bowel regimen for now. She is also supposed to have a colonoscopy with GI next year. She can follow up with us on a p.r.n. basis. Coding Level of Care Code Est Pt Level 3 (00565) Diagnoses Chronic constipation K59.09
[2024-03-18 13:03] VITALS: BP 173/80; PULSE 51; BMI 24.8
== END 2024-03-18 13:34 | disposition home or self-care (01) ==
PROVIDERS: PCP Internal Medicine; Visit Provider Surgery
DX: K59.09 Other constipation (principal)
CPT/HCPCS: 99213

== ENCOUNTER → 2024-03-18 12:45 | Outpatient (BNVA) | payer OTHER, SELFPAY | PROVIDERS: PCP Internal Medicine; Visit Provider Surgery ==

== ENCOUNTER 2024-04-03 12:00 | Outpatient (RCR) | payer OTHER, SELFPAY ==
--- NOTE | 2024-01-06 13:11 | MHC.PT.EP ---
[facility] [place] Office [place] Office [place] Office [address] Maggie Kim [address] [phone] F: [phone] F: [phone] F: [phone] F: [phone] Physical Therapy Plan of Care Date of Evaluation: 01/06/24 Date of Surgery: 01/01/24 Diagnosis: RTC repair by NE Assessment: Pt is a 68yo female who presents to PT 6 days s/p arthroscopic RTC repair of supraspinatus and subscap, with SAD and bicep tenotomy. Pt currently with significant pain, but good compliance with wear of sling and post-op precautions. Skilled PT indicated to progress patient safely through post-op protocol, maintain the integrity of the repair, reduce pain and inflammation, normalize ROM and functional use of R UE. Pt in agreement with POC and is motivated to participate. Frequency and Duration: The patient will be seen 2x/week, x 6 weeks Short Term Goals: 1. In 3 weeks, patient will be I with daily application of CP and isometric/pendulum exercises. 2. In 3 weeks, patient PROM of flexion increase to 125 degrees, and IR/ER to 45 degrees. Chcf Goals: 1. In 6 weeks, patient will achieve full PROM. 2. In 6 weeks (7 weeks post-op) patient will be able to elevate arm without shoulder or scapular hiking, pain <= 2/10. Treatment Plan: Modalities to reduce pain, spasms and effusion. Manual therapy to restore motion and function. Therapeutic exercise to improve strength and flexibility. Neuromuscular re-education for posture and balance. Therapeutic activities to return to functional activities of daily living. Electronically signed by: Marlen Mtz, PT, DPT Please sign and return to therapist. Thank you for your referral.
--- NOTE | 2024-04-13 12:50 | MHC.PT.DC ---
[facility] [place] [facility] [place] [facility] [place] [facility] [address] Maggie Kim [address] [phone] F: [phone] F: [phone] F: [phone] F: [phone] Physical Therapy Discharge Report Diagnosis: RTC repair by NE Date of Surgery: 01/01/24 Date of Evaluation: 01/06/24 Date of Discharge: 04/03/24 Treatments to Date: 23 Cancellations to Date: 0 No Shows to Date: Discharge Status: Achieved Goals Improved Function Independent with HEP Discharge Summary: Pt has met goals in POC with good ability to elevate arm without hiking shoulder below the horizontal. Pt feels she is ready to return to work and is I with all HEP. Pt recommended to continue to complete HEP to maintain ROM gains she made here at PT, and to return for strengthening phase if appropriate in a few months. Pt in agreement. SPADI improved from 130/130 to 54/130, significant improvement. Electronically signed by: Marlen Mtz PT, DPT Please sign and return to therapist. Thank you for your referral.
== END 2024-04-13 12:51 | disposition home or self-care (01) ==
LOC: HO.PT 12:00
PROVIDERS: PCP Internal Medicine; Visit Provider Orthopaedic Surgery
DX: M75.101 Unspecified rotator cuff tear or rupture of right shoulder, not specified as traumatic (principal); M12.811 Other specific arthropathies, not elsewhere classified, right shoulder
CPT/HCPCS: 97110; 97140; 97161

== ENCOUNTER 2024-04-14 14:36 | Outpatient (AMB) | payer OTHER, SELFPAY ==
--- NOTE | 2024-04-14 14:39 | MHC.OFFVIS ---
Vital Signs 04/14/24 14:40 Height 4 ft 11 in Weight 124 lb BMI 25.0 BP 107/52 L Blood Pressure Location Lt brachial Position Sitting Pulse 62 Intake Visit Reasons: Colonoscopy Recall-[facility] Notes 2017 Intake Note: Patient new consult for 2nd pre colonoscopy screening/ [facility] notes. Patient cc: sometimes she feel chocking and denies any other GI issues. 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 by: Self / Same As Patient Allergies citalopram Allergy (Intermediate, Verified 04/14/24 14:39) hives duloxetine Allergy (Intermediate, Verified 04/14/24 14:39) nausea gabapentin Allergy (Intermediate, Verified 04/14/24 14:39) somnelence latex [LATEX] Allergy (Intermediate, Verified 04/14/24 14:39) RASH lisinopril [LISINOPRIL] Allergy (Intermediate, Verified 04/14/24 14:39) COUGH sulfamethoxazole [From BACTRIM] Allergy (Intermediate, Verified 04/14/24 14:39) RASH tramadol [TRAMADOL] Allergy (Intermediate, Verified 04/14/24 14:39) ITCHY, rash trimethoprim [From BACTRIM] Allergy (Intermediate, Verified 04/14/24 14:39) RASH sertraline Allergy (Verified 04/14/24 14:39) Hives Medication List - Last Reconciled 04/14/24 by PAMELA Chavez-Toshia atorvastatin 20 mg PO BEDTIME 90 days cetirizine (Allergy Relief (cetirizine)) 10 mg PO DAILY PRN 30 days chlorthalidone 25 mg PO DAILY 90 days clonazepam 0.5 mg PO DAILY PRN 30 days docusate sodium (Colace) 100 mg PO BID irbesartan 300 mg PO DAILY 90 days levothyroxine 88 mcg PO DAILY 90 days meloxicam 15 mg PO DAILY omeprazole 20 mg PO DAILY 90 days psyllium husk (Metamucil) 1 tbsp PO BID simethicone (Gas Relief (simethicone)) 125 mg PO TID-QID PRN 30 days HPI Comments Details: A 68 y/o female due for colonoscopy- She had an EGD and colon 2017- adenoma- She had rectocele surgery-metamucil, ducosate-good response Appetite is good Bowels well managed with consistent bowel regimen She has no GI or general complaints No nausea, vomiting, hematemesis, hematochezia fever chills PFSH Medical History Moderate recurrent major depression Chronic constipation Dysfunction of right rotator cuff Pain of right clavicle Overweight (BMI 25.0-29.9) Osteopenia Benign paroxysmal vertigo Postmenopausal Arthritis GERD (gastroesophageal reflux disease) Essential hypertension Anxiety Acquired hypothyroidism Pure hypercholesterolemia Surgical History S/P rotator cuff repair Cataract History of lumbar surgery History of thyroidectomy S/P FIORDALIZA (total abdominal hysterectomy) History of hemicolectomy Rectocele Family History Father No problems noted. Mother Diabetes Stroke Hypertension Brother Lung cancer Social History Housing: Apartment Alcohol intake: never Patient Tobacco Use Status: Never used Tobacco e-Cigarette/Vaping Use: Never Used Second Hand Smoke Exposure: No service: No Current occupational status: employed Current occupational exposures/hazards: No Cognitive needs: No Hearing needs: No Vision needs: Yes Review of Systems Const All systems reviewed & are unremarkable except as noted in HPI and below Card Denies chest pain and Denies dyspnea Resp Denies dyspnea GI Denies abdominal pain Physical Exam Vital Signs: Last Vital Signs Pulse 62 04/14/24 14:40 BP 107/52 L 04/14/24 14:40 BMI result Body Mass Index 25.0 Const General: cooperative, healthy appearing, comfortable and no acute distress Eyes Sclerae: sclerae normal Resp Effort & Inspection: normal respiratory effort and able to speak in complete sentences Auscultation: clear to auscultation bilaterally, no rales, no rhonchi and no wheezes Cardio Rate: regular rate Rhythm: regular rhythm GI Palpation (GI): Soft to palpation and nontender Auscultation: normal bowel sounds Results Reviewed Results Reviewed: 2017- Dr. Marques Patient has an appointment on 07/28/20 in the GI Clinic with PAMELA Hernadez. Repeat Colonoscopy interval based on path results - in 3-5 years if polyps are adenomatous and 10 years if polyps are hyperplastic. Above findings were reviewed with the patient and relevant handouts were provided if indicated. BIOPSIES SHOWED: A. Duodenum, nodule, biopsies: Small intestinal mucosa with lymphangiectasia. B. Stomach, antrum, biopsy: Antral-type and oxyntic mucosa with moderate chronic inactive inflammation; no Helicobacter organisms seen. C. Stomach polyps: Fundic gland polyps with background mild chronic inactive inflammation; no Helicobacter organisms seen. D. Esophagus, distal, biopsy: - Cardiofundic-type mucosa with mild chronic inactive inflammation; no intestinal metaplasia seen. - No squamous epithelium seen. E. Colon, sigmoid, polypectomy: Tubular adenoma; no high grade dysplasia or carcinom Assessment & Plan Assessment & Plan (1) History of adenomatous polyp of colon: Code(s): Z86.010 - Personal history of colonic polyps Category: Medical Plan: Polyp surveillance colonoscopy Orders: Orders Colonoscopy - GI Use Only 04/14/24 Z86.010 - Personal history of colonic polyps Medications: New polyethylene glycol 3350 (Miralax) Take as directed by mouth the day before your procedure. 238 grams PO ONCE 1 day PRN 238 grams 0RF laxative effect bisacodyl (Dulcolax (bisacodyl)) Day before procedure @ 12 noon Take 4 tablets by mouth followed by large glass of water 20 mg (4 x 5 mg) PO ONCE 1 day PRN 4 tabs 0RF colonoscopy prep Z12.11 - Encounter for screening for malignant neoplasm of colon Patient Instructions: Polyp surveillance colonoscopy MiraLax Gatorade, reviewed literature given Call with questions or concerns, change in health status Coding Level of Care Code New Pt Level 3 (99332) Diagnoses History of adenomatous polyp of colon Z86.010 Time Spent (min) 30
[2024-04-14 14:40] VITALS: BP 107/52; PULSE 62; BMI 25.0
== END 2024-04-14 15:34 | disposition home or self-care (01) ==
PROVIDERS: PCP Internal Medicine; Visit Provider Physician Assistant
DX: Z86.010 Personal history of colon polyps (principal)
CPT/HCPCS: 99203

== ENCOUNTER → 2024-04-14 14:36 | Outpatient (BNVA) | payer OTHER, SELFPAY | PROVIDERS: PCP Internal Medicine; Visit Provider Physician Assistant ==

== ENCOUNTER 2024-05-22 12:31 | Outpatient (AMB) | payer OTHER, SELFPAY ==
[2024-05-22 12:51] VITALS: BMI 24.8
--- NOTE | 2024-05-22 12:51 | MHC.OFFVIS ---
Vital Signs 05/22/24 12:51 Height 4 ft 11 in Weight 123 lb BMI 24.8 Handedness Right Intake Visit Reasons: OV-Right RTC Repair 01/01/24 NE Intake Note: Sandy is a 69 year old right hand dominant female who presents today for a follow up s/p Right RTC Repair 01/01/24 NE. Patient reports she is having pain in the mainly in the morning but it gets better throughout the day. She has gone back to work and has completed her PT. She states PT went well and has continued to do at home exercises. Allergies citalopram Allergy (Intermediate, Verified 05/22/24 12:59) hives duloxetine Allergy (Intermediate, Verified 05/22/24 12:59) nausea gabapentin Allergy (Intermediate, Verified 05/22/24 12:59) somnelence latex [LATEX] Allergy (Intermediate, Verified 05/22/24 12:59) RASH lisinopril [LISINOPRIL] Allergy (Intermediate, Verified 05/22/24 12:59) COUGH sulfamethoxazole [From BACTRIM] Allergy (Intermediate, Verified 05/22/24 12:59) RASH tramadol [TRAMADOL] Allergy (Intermediate, Verified 05/22/24 12:59) ITCHY, rash trimethoprim [From BACTRIM] Allergy (Intermediate, Verified 05/22/24 12:59) RASH sertraline Allergy (Verified 05/22/24 12:59) Hives HPI HPI OV-Right RTC Repair 01/01/24 NE: Details: Sandy is a 69 year old right hand dominant female who presents today for a follow up s/p Right RTC Repair 01/01/24 NE. Patient reports she is having pain in the mainly in the morning but it gets better throughout the day. She has gone back to work and has completed her PT. She states PT went well and has continued to do at home exercises. [facility] Medical History Moderate recurrent major depression Chronic constipation Dysfunction of right rotator cuff Pain of right clavicle Overweight (BMI 25.0-29.9) Osteopenia Benign paroxysmal vertigo Postmenopausal Arthritis GERD (gastroesophageal reflux disease) Essential hypertension Anxiety Acquired hypothyroidism Pure hypercholesterolemia Surgical History S/P rotator cuff repair Cataract History of lumbar surgery History of thyroidectomy S/P FIORDALIZA (total abdominal hysterectomy) History of hemicolectomy Rectocele Family History Father No problems noted. Mother Diabetes Stroke Hypertension Brother Lung cancer Social History Housing: Apartment Alcohol intake: never Patient Tobacco Use Status: Never used Tobacco e-Cigarette/Vaping Use: Never Used Second Hand Smoke Exposure: No service: No Current occupational status: employed Current occupation: [employer] Current occupational exposures/hazards: No Cognitive needs: No Hearing needs: No Vision needs: Yes Physical Exam Vital Signs: BMI result Body Mass Index 24.8 Extrem Other: 25/90/110/hp 4+/5 EC Assessment & Plan Assessment & Plan (1) S/P rotator cuff repair: Code(s): Z98.890 - Other specified postprocedural states Category: Surgical Plan: Status post rotator cuff repair on the right. Follow up in 3 months. Continue activity as tolerated with no heavy lifting. Coding Level of Care Code Est Pt Level 3 (64207) Diagnoses S/P rotator cuff repair Z98.890
== END 2024-05-22 13:11 | disposition home or self-care (01) ==
PROVIDERS: PCP Internal Medicine; Visit Provider Orthopaedic Surgery
DX: M75.120 Complete rotator cuff tear or rupture of unspecified shoulder, not specified as traumatic (principal); Z47.89 Encounter for other orthopedic aftercare
CPT/HCPCS: 99213

== ENCOUNTER → 2024-05-22 12:31 | Outpatient (BNVA) | payer OTHER, SELFPAY | PROVIDERS: PCP Internal Medicine; Visit Provider Orthopaedic Surgery ==

== ENCOUNTER 2024-09-02 07:20 | Outpatient (REF) | payer MEDICARE, SELFPAY ==
[2024-09-02 09:04] LABS: Thyroid Stimulating Hormone 0.71 uIU/mL (0.32-4.0)
== END 2024-09-02 07:21 | disposition home or self-care (01) ==
LOC: HO.LAB 07:20
PROVIDERS: PCP Internal Medicine; Visit Provider Internal Medicine
DX: E03.9 Hypothyroidism, unspecified (principal)
CPT/HCPCS: 36415; 84443

== ENCOUNTER 2024-09-07 17:18 | Outpatient (AMB) | payer MEDICARE, SELFPAY ==
--- NOTE | 2024-09-07 17:20 | MHC.PC.OV ---
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 Accompanied by: Self / Same As Patient Allergies citalopram Allergy (Intermediate, Verified 09/07/24 17:33) hives duloxetine Allergy (Intermediate, Verified 09/07/24 17:33) nausea gabapentin Allergy (Intermediate, Verified 09/07/24 17:33) somnelence latex [LATEX] Allergy (Intermediate, Verified 09/07/24 17:33) RASH lisinopril [LISINOPRIL] Allergy (Intermediate, Verified 09/07/24 17:33) COUGH sulfamethoxazole [From BACTRIM] Allergy (Intermediate, Verified 09/07/24 17:33) RASH tramadol [TRAMADOL] Allergy (Intermediate, Verified 09/07/24 17:33) ITCHY, rash trimethoprim [From BACTRIM] Allergy (Intermediate, Verified 09/07/24 17:33) RASH sertraline Allergy (Verified 09/07/24 17:33) Hives Medication List - Last Reconciled 09/07/24 by Latisha Toney MD atorvastatin 20 mg PO BEDTIME 90 days bisacodyl (Dulcolax (bisacodyl)) 20 mg (4 x 5 mg) PO ONCE PRN 1 day cetirizine (Allergy Relief (cetirizine)) 10 mg PO DAILY PRN 30 days chlorthalidone 25 mg PO DAILY 90 days clonazepam 0.5 mg PO DAILY PRN 30 days docusate sodium (Colace) 100 mg PO BID irbesartan 300 mg PO DAILY 90 days levothyroxine 88 mcg PO DAILY 90 days meloxicam 15 mg PO DAILY omeprazole 20 mg PO DAILY 90 days polyethylene glycol 3350 (Miralax) 238 grams PO ONCE PRN 1 day psyllium husk (Metamucil) 1 tbsp PO BID simethicone (Gas Relief (simethicone)) 125 mg PO TID-QID PRN 30 days Tobacco use date assessed: 03/03/24 Fall risk assessment: No Falls in past year Last assessed Fall Risk: 09/07/24 Dental Screening Dental Screen Date: 03/03/24 HPI HPI Comments History of Present Illness Details This is a 69-year-old female with hypertension, pure hypercholesterolemia and hypothyroidism that comes today complaining of neck pain, lumbar pain and bilateral hip pain that has been present for 6 months. No previous trauma. Has full range of motion. Will be referred to pain management. Blood pressure stable. Cholesterol well controlled. TSH normal. [facility] Medical History (Updated 09/07/24 @ 17:40 by Latisha Toney MD) Moderate recurrent major depression Chronic constipation Dysfunction of right rotator cuff Pain of right clavicle Overweight (BMI 25.0-29.9) Osteopenia Benign paroxysmal vertigo Postmenopausal Arthritis GERD (gastroesophageal reflux disease) Essential hypertension Anxiety Acquired hypothyroidism Pure hypercholesterolemia Surgical History S/P rotator cuff repair Cataract History of lumbar surgery History of thyroidectomy S/P FIORDALIZA (total abdominal hysterectomy) History of hemicolectomy Rectocele Family History Father No problems noted. Mother Diabetes Stroke Hypertension Brother Lung cancer Social History Housing: Apartment Alcohol intake: never Patient Tobacco Use Status: Never used Tobacco e-Cigarette/Vaping Use: Never Used Second Hand Smoke Exposure: No service: No Current occupational status: employed Current occupation: [employer] Current occupational exposures/hazards: No Cognitive needs: No Hearing needs: No Vision needs: Yes Questionnaire Thrive Questionnaire Date Thrive assessed: 03/03/24 Are you currently unemployed and looking for a job?: No JANNETH-7 AMB Questionnaire JANNETH-7 Date JANNETH - 7 assessed: 03/03/24 Source: Developed by Drs. Valdemar Estes, Joanie Oreilly, Charles Huff and colleagues, with an educational kj from [employer]. Review of Systems Const All systems reviewed & are unremarkable except as noted in HPI and below Card Denies chest pain at rest, Denies chest pain with activity, Denies edema, Denies irregular heart rhythm, Denies claudication, Denies dyspnea, Denies dyspnea on exertion, Denies orthopnea, Denies paroxysmal nocturnal dyspnea and Denies slow heart rate Resp Denies cough, Denies dyspnea and Denies dyspnea on exertion GI Denies abdominal pain, Denies change in bowel habits, Denies excessive flatus, Denies nausea and Denies vomiting Denies urinary incontinence, Denies urinary hesitancy and Denies urinary urgency Musc Denies atrophy, Denies deformity and Denies limited range of motion Skin/Breast Denies bleeding lesions, Denies changing lesions and Denies rash Physical exam (Primary Care) Vital Signs: Last Vital Signs BP 102/60 09/07/24 17:21 BMI result Body Mass Index 24.8 Tobacco/Smoking Status: Tobacco use Status Tobacco use date assessed 03/03/24 09/07/24 17:24 Patient Tobacco Use Status Never used Tobacco 09/07/24 17:24 Tobacco use type 08/27/22 17:42 e-Cigarette/Vaping Use Never Used 09/07/24 17:24 Thrive Assessment: Date of Thrive Assessment Date Thrive assessed 03/03/24 09/07/24 17:24 Resp Effort & Inspection: normal respiratory effort Auscultation: clear to auscultation bilaterally Cardio Jugular venous distension: no JVD Rate: regular rate Rhythm: regular rhythm Heart sounds: S1 normal heart sound present and S2 normal heart sound present Extrem General: Yes full ROM Office Procedures Flu Questionnaire Does the patient have a severe egg allergy?: No Does the patient have severe life threatening allergies?: No Does the patient have a fever or illness today?: No Has the patient ever had Guillain-Rattan Syndrome?: No Has the patient ever had any past reaction to a flu shot?: No Immunizations Fluarix Triv [id number] (PF) 45 mcg (15 mcg x 3)/0.5 mL IM syringe Performing Provider: Latisha Toney MD [facility] Administered by: ALEXSANDRA Mark on 09/07/24 17:41 Dose Route Admin Location Dispensed Lot Number Expiration Date [facility] [employer] Type 0.5 mL IM Left Deltoid 0.5 mL [id number] 05/31/25 [id number] [employer] VIS Given Date VIS Provided VIS Publication Date 09/07/24 Single Vaccine 21 Eligibility Eligibility Date Funding Source Not [facility] Eligible 09/07/24 Private Coding Level of Care Code Est Pt Level 4 (52558) Complex EM visit Add On G2211 Diagnoses Lumbar pain M54.50 Right hip pain M25.551 Left hip pain M25.552 Neck pain M54.2 Essential hypertension I10 Acquired hypothyroidism E03.9 Pure hypercholesterolemia E78.00 Time Spent (min) 25 Assessment & Plan Assessment & Plan (1) Lumbar pain: Code(s): M54.50 - Low back pain, unspecified Category: Medical Plan: X-ray ordered. Referred to pain management. (2) Right hip pain: Code(s): M25.551 - Pain in right hip Category: Medical Plan: X-ray ordered. Referred to pain management. (3) Left hip pain: Code(s): M25.552 - Pain in left hip Category: Medical Plan: X-ray ordered. Referred to pain management. (4) Neck pain: Code(s): M54.2 - Cervicalgia Category: Medical Plan: X-ray ordered. Referred to pain management. (5) Essential hypertension: Code(s): I10 - Essential (primary) hypertension Category: Medical Plan: Continue valsartan. Blood pressure goal is equal or less than 130/80. (6) Acquired hypothyroidism: Code(s): E03.9 - Hypothyroidism, unspecified Category: Medical Plan: Continue levothyroxine. (7) Pure hypercholesterolemia: Code(s): E78.00 - Pure hypercholesterolemia, unspecified Category: Medical Plan: Continue statins. Orders: Orders XR lumbar spine 2-3V Today M54.50 - Low back pain, unspecified XR hip RT 1V Today M25.551 - Pain in right hip XR DEXA axial skeleton Today Z78.0 - Asymptomatic menopausal state Influenza [id number] Immunization Today Z23 - Encounter for immunization XR cervical spine 2V Today M54.2 - Cervicalgia XR hip LT 1V Today M25.552 - Pain in left hip Referrals Pain Management Referral M25.551 - Pain in right hip, M25.552 - Pain in left hip, M54.2 - Cervicalgia, M54.50 - Low back pain, unspecified
[2024-09-07 17:21] VITALS: BP 102/60; BMI 24.8
== END 2024-09-07 17:51 | disposition home or self-care (01) ==
PROVIDERS: PCP Internal Medicine; Visit Provider Internal Medicine
DX: M54.50 Low back pain, unspecified (principal); M25.551 Pain in right hip; M25.552 Pain in left hip; M54.2 Cervicalgia; I10 Essential (primary) hypertension; E03.9 Hypothyroidism, unspecified; E78.00 Pure hypercholesterolemia, unspecified; Z23 Encounter for immunization

== ENCOUNTER → 2024-09-07 17:18 | Outpatient (BNVA) | payer MEDICARE, SELFPAY | PROVIDERS: PCP Internal Medicine; Visit Provider Internal Medicine | DX: Z23 Encounter for immunization (principal); E03.9 Hypothyroidism, unspecified; E78.00 Pure hypercholesterolemia, unspecified; I10 Essential (primary) hypertension; M54.2 Cervicalgia; M54.50 Low back pain, unspecified; M25.551 Pain in right hip; M25.552 Pain in left hip | CPT/HCPCS: 90471; 90656; 99212 ==

== ENCOUNTER 2024-09-09 11:04 | Outpatient (REF) | payer MEDICARE, SELFPAY ==
--- NOTE | ~2024-09-09 | XR_ITS ---
EXAMINATION: XR LEFT HIP 2 VIEWS CLINICAL INFORMATION: Pain in left hip M25.552. COMPARISON: None available. TECHNIQUE: Two views of the left hip. FINDINGS: Moderate left hip arthritis, joint space loss, osteophytes. No evidence of acute fracture or dislocation. No findings to suggest avascular necrosis. Symphysis pubis degeneration. No suspicious soft tissue calcifications. XR/XR hip LT min 2V IMPRESSION: Moderate left hip arthritis. Study is assigned for dictation on November 11, 2024 Electronically signed by: Hua Boykin MD 11/11/2024 11:41 AM [facility]
--- NOTE | ~2024-09-09 | XR_ITS ---
EXAMINATION: XR LUMBAR SPINE 3 VIEWS CLINICAL INFORMATION: Low back pain, unspecified M54.50. COMPARISON: MR Lumbar spine without IV contrast 12/20/2018 TECHNIQUE: Three views of the lumbosacral spine. FINDINGS: Rightward curvature lumbar spine. Mild anterolisthesis of L4 on L5. Mild retrolisthesis of L3 and L4. No evidence of acute fracture. Vertebral body heights are maintained. Multilevel lumbar degenerative spondylosis, with multilevel disc degenerative changes, more prominent findings of moderate disc degeneration at L5-S1, L2-3. Multilevel facet degeneration. Mild bilateral SI joint arthritis. Calcifications in the right upper quadrant, possibly gallstones. XR/XR lumbar spine 2-3V IMPRESSION: Mild-moderate multilevel lumbar spondylosis. No radiographic evidence of acute fracture. Study is assigned for dictation on November 11, 2024 Electronically signed by: Hua Boykin MD 11/11/2024 11:53 AM EST Workstation: [id number]
--- NOTE | ~2024-09-09 | XR_ITS ---
EXAMINATION: XR CERVICAL SPINE 3 VIEWS CLINICAL INFORMATION: Cervicalgia M54.2. COMPARISON: XR Cervical spine 03/12/2023 TECHNIQUE: 3 views of the cervical spine were obtained. FINDINGS: No evidence of acute fracture or malalignment. Vertebral body sagittal alignment is maintained. No prevertebral soft tissue swelling. Predental space is maintained. Mild endplate spurring at a few levels. Disc spaces are relatively maintained. Facet degeneration in the lower cervical spine. Surgical clips projected over the anterior soft tissues. Lung apices are clear. XR/XR cervical spine 2V IMPRESSION: No radiographic evidence of acute osseous abnormality. Mild cervical spondylosis. Study is assigned for dictation on November 11, 2024 Electronically signed by: Hua Boykin MD 11/11/2024 11:50 AM [facility]
--- NOTE | ~2024-09-09 | XR_ITS ---
EXAMINATION: XR RIGHT HIP 2 VIEWS CLINICAL INFORMATION: Pain in right hip M25.551. COMPARISON: XR Right hip 08/29/2023 TECHNIQUE: Two views of the right hip. FINDINGS: No acute fracture or dislocation. Moderate right hip osteoarthritis. No evidence of avascular necrosis. No abnormal soft tissue calcification. XR/XR hip RT min 2V IMPRESSION: Moderate right hip arthritis. Study is assigned for dictation on November 11, 2024 Electronically signed by: Hua Boykin MD 11/11/2024 11:16 AM [facility]
== END 2024-09-09 11:05 | disposition home or self-care (01) ==
LOC: HO.XRAY 11:04
PROVIDERS: PCP Internal Medicine; Visit Provider Internal Medicine
DX: M25.551 Pain in right hip (principal); M25.552 Pain in left hip; M54.2 Cervicalgia; M54.50 Low back pain, unspecified
CPT/HCPCS: 72040; 72100; 73502

== ENCOUNTER 2024-09-23 10:48 | Outpatient (AMB) | payer MEDICARE, SELFPAY ==
--- NOTE | 2024-09-23 10:58 | A.OFFVIS_ITS ---
Vital Signs 09/23/24 10:59 Height 4 ft 11 in Weight 123 lb BMI 24.8 BP 119/58 L Blood Pressure Location Rt brachial Position Sitting Pulse 62 Pulse Source Pulse Oximeter Pulse Oximetry (%) 98 Oxygen Delivery Method Room Air Intake Visit Reasons: Low back pain, unspecified Allergies citalopram Allergy (Intermediate, Verified 09/23/24 11:00) hives duloxetine Allergy (Intermediate, Verified 09/23/24 11:00) nausea gabapentin Allergy (Intermediate, Verified 09/23/24 11:00) somnelence latex [LATEX] Allergy (Intermediate, Verified 09/23/24 11:00) RASH lisinopril [LISINOPRIL] Allergy (Intermediate, Verified 09/23/24 11:00) COUGH sulfamethoxazole [From BACTRIM] Allergy (Intermediate, Verified 09/23/24 11:00) RASH tramadol [TRAMADOL] Allergy (Intermediate, Verified 09/23/24 11:00) ITCHY, rash trimethoprim [From BACTRIM] Allergy (Intermediate, Verified 09/23/24 11:00) RASH sertraline Allergy (Verified 09/23/24 11:00) Hives Medication List - Last Reconciled 09/23/24 by Renetta Quesada atorvastatin 20 mg PO BEDTIME 90 days bisacodyl (Dulcolax (bisacodyl)) 20 mg (4 x 5 mg) PO ONCE PRN 1 day cetirizine (Allergy Relief (cetirizine)) 10 mg PO DAILY PRN 30 days chlorthalidone 25 mg PO DAILY 90 days clonazepam 0.5 mg PO DAILY PRN 30 days docusate sodium (Colace) 100 mg PO BID irbesartan 300 mg PO DAILY 90 days levothyroxine 88 mcg PO DAILY 90 days meloxicam 15 mg PO DAILY omeprazole 20 mg PO DAILY 90 days polyethylene glycol 3350 (Miralax) 238 grams PO ONCE PRN 1 day psyllium husk (Metamucil) 1 tbsp PO BID simethicone (Gas Relief (simethicone)) 125 mg PO TID-QID PRN 30 days HPI Comments Details: Sandy is a very pleasant 69-year-old female who presents the office today for evaluation and management of her chronic lower back pain She has been suffering with this pain for approximately 15 years. She attributes it to fall down some stairs, states she has had back pain since. Endorses midline, axial back pain without radiation down either lower extremity. Status post lumbar surgery 03/2019. She denies any hardware or fusion, states there was a pinched nerve which they surgically released. Prior to surgery she had lower back pain with radiation down the leg. Since surgery the radicular pain has resolved but the axial back pain persists She has tried physical therapy many times without improvement. Continues with home exercise program. Currently taking meloxicam with minimal improvement. She has not tried chiropractor, acupuncture, massage or topical medications. Pain today is rated as an 8/10, constant. Worse in the morning and during the day. In terms of muscle damage condition is described as aching, spasming, stabbing, sharp, squeezing, throbbing Pain is negatively impacting patient's enjoyment of life, general activity, normal work, relationships with people, sleep and walking Denies red flag symptoms including new loss of bowel, bladder or saddle anesthesia. Recent imaging was performed, results are pending. Denies current use of anticoagulants Denies implantable devices, pacemaker or defibrillator Denies current use of nicotine, tobacco, alcohol or illicit substances [facility] Medical History Moderate recurrent major depression Chronic constipation Dysfunction of right rotator cuff Pain of right clavicle Overweight (BMI 25.0-29.9) Osteopenia Benign paroxysmal vertigo Postmenopausal Arthritis GERD (gastroesophageal reflux disease) Essential hypertension Anxiety Acquired hypothyroidism Pure hypercholesterolemia Surgical History S/P rotator cuff repair Cataract History of lumbar surgery History of thyroidectomy S/P FIORDALIZA (total abdominal hysterectomy) History of hemicolectomy Rectocele Family History Father No problems noted. Mother Diabetes Stroke Hypertension Brother Lung cancer Social History Housing: Apartment Alcohol intake: never Patient Tobacco Use Status: Never used Tobacco e-Cigarette/Vaping Use: Never Used Second Hand Smoke Exposure: No service: No Current occupational status: employed Current occupation: [employer] Current occupational exposures/hazards: No Cognitive needs: No Hearing needs: No Vision needs: Yes Review of Systems Const All systems reviewed & are unremarkable except as noted in HPI and below Physical Exam Vital Signs: Last Vital Signs Pulse 62 09/23/24 10:59 BP 119/58 L 09/23/24 10:59 Pulse Ox 98 09/23/24 10:59 Oxygen Delivery Method Room Air 09/23/24 10:59 BMI result Body Mass Index 24.8 General: awake, alert, oriented. Answers questions appropriately. Fully engaged in examination. Skin: warm, dry, intact HEENT: Normocephalic. Hearing intact. Cardiac: External chest normal in appearance. Respiratory: No cough, audible wheezing or stridor. Abdomen: without gross distension. MS: No obvious swelling or deformities. Able to stand on bilateral tiptoes and bilateral heels.? Able to transition from sit to stand unassisted. Ambulates with bilaterally normal heel strike and toe off Facet loading positive Bilateral lower extremity strength 5/5 Decreased lumbar range of motion secondary pain. Pain worse with extension SLR negative bilaterally Nontender over bilateral PSIS Tenderness in midline lumbar vertebrae and lower paraspinal muscles Well-healed surgical scar over lumbar spine Neurological: Oriented to person, place, time and situation. Thought process intact. No gait abnormalities appreciated. Psychiatric: Appropriate mood and affect. Good judgment and insight. Results Reviewed Results Reviewed: X-ray results pending Assessment & Plan Assessment & Plan (1) Intractable back pain: Code(s): M54.9 - Dorsalgia, unspecified Category: Medical (2) Post laminectomy syndrome: Code(s): M96.1 - Postlaminectomy syndrome, not elsewhere classified Category: Medical Plan Sandy is a very pleasant 69-year-old female who presented to the office today for evaluation and management of her chronic lower back pain. Patient has exhausted conservative therapy including PT, home exercise program, nonsteroidal anti-inflammatory medications, previous surgical intervention all without improvement of her symptoms. Discussed options for treatment including diagnostic interventional testing, epidural steroid injections, peripheral nerve stimulation with Sprint, RFA and more permanent neuromodulation. Informational pamphlets provided. Patient would like to review options. She will review sprint PNS pamphlet. Call the office once she is ready to proceed with procedure, she was offered diagnostic injections, therapeutic injections, sprint PNS trial or RFA. All questions and concerns have been answered and patient agrees with the plan. Follow up after injections and sooner if needed. Medications: New methocarbamol No driving while taking this medication. 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
[2024-09-23 10:59] VITALS: BP 119/58; PULSE 62; O2SAT 98; BMI 24.8
== END 2024-09-23 11:39 | disposition home or self-care (01) ==
PROVIDERS: PCP Internal Medicine; Visit Provider Registered Nurse Emergency
DX: M54.9 Dorsalgia, unspecified (principal); M96.1 Postlaminectomy syndrome, not elsewhere classified
CPT/HCPCS: 99204; G2211

== ENCOUNTER → 2024-09-23 10:48 | Outpatient (BNVA) | payer MEDICARE, SELFPAY | PROVIDERS: PCP Internal Medicine; Visit Provider Registered Nurse Emergency | DX: M54.9 Dorsalgia, unspecified (principal); M96.1 Postlaminectomy syndrome, not elsewhere classified | CPT/HCPCS: 99202 ==

== ENCOUNTER 2024-10-27 10:49 | Outpatient (AMB) | payer MEDICARE, SELFPAY ==
--- NOTE | 2024-10-27 11:32 | MHC.OFFVIS ---
Intake Visit Reasons: OV-Right RTC Repair 01/01/24 NE Intake Note: Sandy is a 69 year old right hand dominant female who presents today for a follow up s/p Right RTC Repair (supraspinatus and Subscapularis) 01/01/24 NE. Allergies citalopram Allergy (Intermediate, Verified 09/23/24 11:00) hives duloxetine Allergy (Intermediate, Verified 09/23/24 11:00) nausea gabapentin Allergy (Intermediate, Verified 09/23/24 11:00) somnelence latex [LATEX] Allergy (Intermediate, Verified 09/23/24 11:00) RASH lisinopril [LISINOPRIL] Allergy (Intermediate, Verified 09/23/24 11:00) COUGH sulfamethoxazole [From BACTRIM] Allergy (Intermediate, Verified 09/23/24 11:00) RASH tramadol [TRAMADOL] Allergy (Intermediate, Verified 09/23/24 11:00) ITCHY, rash trimethoprim [From BACTRIM] Allergy (Intermediate, Verified 09/23/24 11:00) RASH sertraline Allergy (Verified 09/23/24 11:00) Hives HPI HPI OV-Right RTC Repair 01/01/24 NE: Details: Sandy is a 69 year old right hand dominant female who presents today for a follow up s/p Right RTC Repair 01/01/24 NE. She states she continues to have pain especially at night and in the trapezoid and. Cervical region of her right side. She had a large rotator cuff repair for a chronic massive tear. PENDING SALE TO [facility] Medical History Moderate recurrent major depression Chronic constipation Dysfunction of right rotator cuff Pain of right clavicle Overweight (BMI 25.0-29.9) Osteopenia Benign paroxysmal vertigo Postmenopausal Arthritis GERD (gastroesophageal reflux disease) Essential hypertension Anxiety Acquired hypothyroidism Pure hypercholesterolemia Surgical History S/P rotator cuff repair Cataract History of lumbar surgery History of thyroidectomy S/P FIORDALIZA (total abdominal hysterectomy) History of hemicolectomy Rectocele Family History Father No problems noted. Mother Diabetes Stroke Hypertension Brother Lung cancer Social History Housing: Apartment Alcohol intake: never Patient Tobacco Use Status: Never used Tobacco e-Cigarette/Vaping Use: Never Used Second Hand Smoke Exposure: No service: No Current occupational status: employed Current occupation: [employer] Current occupational exposures/hazards: No Cognitive needs: No Hearing needs: No Vision needs: Yes Physical Exam Extrem Other: Isolated glenohumeral abduction and 90 degrees Combined glenohumeral abduction to 120 degrees with discomfort Forward flexion to 140 External rotation to 25 Internal rotation to S1 4+ /5 empty can Assessment & Plan Assessment & Plan (1) S/P rotator cuff repair: Code(s): Z98.890 - Other specified postprocedural states Category: Surgical Plan: Status post large rotator cuff repair. Her motion is quite good. She does have pain and I would not be surprised if there is only partial recovery given the extent of her tear. At this point, however, I am pleased with her motion and recommend that she abstain from activities that irritate the shoulder such as lifting and that she follow up in 2 months and we can discuss it then but the next step if she can not tolerate the current situation would be arthroplasty. Coding Level of Care Code Est Pt Level 3 (26473) Diagnoses S/P rotator cuff repair Z98.890
== END 2024-10-27 12:10 | disposition home or self-care (01) ==
PROVIDERS: PCP Internal Medicine; Visit Provider Orthopaedic Surgery
DX: S46.011D Strain of muscle(s) and tendon(s) of the rotator cuff of right shoulder, subsequent encounter (principal); M25.511 Pain in right shoulder
CPT/HCPCS: 99213

== ENCOUNTER → 2024-10-27 10:49 | Outpatient (BNVA) | payer MEDICARE, SELFPAY | PROVIDERS: PCP Internal Medicine; Visit Provider Orthopaedic Surgery | DX: M25.511 Pain in right shoulder (principal); Z98.890 Other specified postprocedural states | CPT/HCPCS: 99212 ==

== ENCOUNTER 2024-11-13 10:12 | Day surgery (SDC) | payer MEDICARE, SELFPAY ==
--- NOTE | 2024-11-12 11:46 | HO.ANESPROP2 ---
Documented by User: Nury Miller NP 11/12/24 11:47 HPI - Anesthesia Eval Consult details Narrative: 69yo F for Colonoscopy s/p rotator cuff 01/2024 with GA-ETT 7.5 PMFSH Active Problems Active Problems: All Active Problems Post laminectomy syndrome (Acute) Intractable back pain (Acute) Lumbar pain (Acute) Right hip pain (Acute) Left hip pain (Acute) Neck pain (Acute) History of adenomatous polyp of colon (Acute) Physical exam (Acute) S/P rotator cuff repair (Acute) Chronic constipation (Acute) Hypokalemia (Acute) Pre-op evaluation (Acute) Complete rotator cuff tear (Acute) Traumatic partial tear of right biceps tendon (Acute) Right rotator cuff tear arthropathy (Acute) Dysfunction of right rotator cuff (Acute) Pelvic pain in female (Acute) Right hip pain (Acute) Bursitis of right shoulder (Acute) Right shoulder pain (Acute) JANNETH (generalized anxiety disorder) (Acute) Thoracic spine pain (Acute) Neck pain (Acute) Abscess (Acute) Physical exam (Acute) Pressure in head (Acute) Varicose veins of right lower extremity with inflammation (Acute) Venous insufficiency (Acute) Leg numbness (Acute) Headache (Acute) Pain of right clavicle (Acute) Overweight (BMI 25.0-29.9) (Acute) Osteopenia (Acute) Benign paroxysmal vertigo (Acute) Postmenopausal (Acute) Arthritis (Acute) GERD (gastroesophageal reflux disease) (Acute) Essential hypertension (Acute) Anxiety (Acute) Acquired hypothyroidism (Acute) Pure hypercholesterolemia (Acute) Past Medical History Medical History Moderate recurrent major depression Chronic constipation Dysfunction of right rotator cuff Pain of right clavicle Overweight (BMI 25.0-29.9) Osteopenia Benign paroxysmal vertigo Postmenopausal Arthritis GERD (gastroesophageal reflux disease) Essential hypertension Anxiety Acquired hypothyroidism Pure hypercholesterolemia Family History Family History Father No problems noted. Mother Diabetes Stroke Hypertension Brother Lung cancer Family history of problems with anesthesia: No Surgical History Surgical History S/P rotator cuff repair Cataract History of lumbar surgery History of thyroidectomy S/P FIORDALIZA (total abdominal hysterectomy) History of hemicolectomy Rectocele History of Problems with Anesthesia: No Social History Social History Housing: Apartment Alcohol intake: never Patient Tobacco Use Status: Never used Tobacco e-Cigarette/Vaping Use: Never Used Second Hand Smoke Exposure: No Use of substances other than those prescribed or required for medical reasons: No Are you DNR?: No Advance Directives: No Advance Directives Information Provided: Yes service: No Current occupational status: employed Current occupation: [employer] Current occupational exposures/hazards: No Cognitive needs: No Hearing needs: No Vision needs: Yes Meds Allergies Allergy/AdvReac Type Severity Reaction Status Date / Time citalopram Allergy Intermediate hives Verified 11/13/24 11:31 duloxetine Allergy Intermediate nausea Verified 11/13/24 11:31 gabapentin Allergy Intermediate somnelence Verified 11/13/24 11:31 latex [LATEX] Allergy Intermediate RASH Verified 11/13/24 11:31 lisinopril [LISINOPRIL] Allergy Intermediate COUGH Verified 11/13/24 11:31 sulfamethoxazole Allergy Intermediate RASH Verified 11/13/24 11:31 [From BACTRIM] tramadol [TRAMADOL] Allergy Intermediate ITCHY, rash Verified 11/13/24 11:31 trimethoprim [From BACTRIM] Allergy Intermediate RASH Verified 11/13/24 11:31 sertraline Allergy Hives Verified 11/13/24 11:31 Assessment and Plan Assessment Anesthesia Assessment: Chart Reviewed Final Anesthetic Review Family History of Problems with Anesthesia: No History of Problems with Anesthesia: No Documented by User: Justa Ordaz MD 11/13/24 13:38 PMF Active Problems Active Problems: All Active Problems Post laminectomy syndrome (Acute) Intractable back pain (Acute) Lumbar pain (Acute) Right hip pain (Acute) Left hip pain (Acute) Neck pain (Acute) History of adenomatous polyp of colon (Acute) Physical exam (Acute) S/P rotator cuff repair (Acute) Chronic constipation (Acute) Hypokalemia (Acute) Pre-op evaluation (Acute) Complete rotator cuff tear (Acute) Traumatic partial tear of right biceps tendon (Acute) Right rotator cuff tear arthropathy (Acute) Dysfunction of right rotator cuff (Acute) Pelvic pain in female (Acute) Right hip pain (Acute) Bursitis of right shoulder (Acute) Right shoulder pain (Acute) JANNETH (generalized anxiety disorder) (Acute) Thoracic spine pain (Acute) Neck pain (Acute)- undergoing physical therapy Abscess (Acute) Physical exam (Acute) Pressure in head (Acute) Varicose veins of right lower extremity with inflammation (Acute) Venous insufficiency (Acute) Leg numbness (Acute) Headache (Acute) Pain of right clavicle (Acute) Overweight (BMI 25.0-29.9) (Acute) Osteopenia (Acute) Benign paroxysmal vertigo (Acute) Postmenopausal (Acute) Arthritis (Acute) GERD (gastroesophageal reflux disease) (Acute) Essential hypertension (Acute) Anxiety (Acute) Acquired hypothyroidism (Acute) Pure hypercholesterolemia (Acute) Past Medical History Medical History Moderate recurrent major depression Chronic constipation Dysfunction of right rotator cuff Pain of right clavicle Overweight (BMI 25.0-29.9) Osteopenia Benign paroxysmal vertigo Postmenopausal Arthritis GERD (gastroesophageal reflux disease) Essential hypertension Anxiety Acquired hypothyroidism Pure hypercholesterolemia Family History Family History Father No problems noted. Mother Diabetes Stroke Hypertension Brother Lung cancer Family history of problems with anesthesia: No Surgical History Surgical History S/P rotator cuff repair Cataract History of lumbar surgery History of thyroidectomy S/P FIORDALIZA (total abdominal hysterectomy) History of hemicolectomy Rectocele History of Problems with Anesthesia: No Social History Social History Housing: Apartment Alcohol intake: never Patient Tobacco Use Status: Never used Tobacco e-Cigarette/Vaping Use: Never Used Second Hand Smoke Exposure: No Use of substances other than those prescribed or required for medical reasons: No Are you DNR?: No Advance Directives: No Advance Directives Information Provided: Yes service: No Current occupational status: employed Current occupation: [employer] Current occupational exposures/hazards: No Cognitive needs: No Hearing needs: No Vision needs: Yes Meds Allergies Allergy/AdvReac Type Severity Reaction Status Date / Time citalopram Allergy Intermediate hives Verified 11/13/24 11:31 duloxetine Allergy Intermediate nausea Verified 11/13/24 11:31 gabapentin Allergy Intermediate somnelence Verified 11/13/24 11:31 latex [LATEX] Allergy Intermediate RASH Verified 11/13/24 11:31 lisinopril [LISINOPRIL] Allergy Intermediate COUGH Verified 11/13/24 11:31 sulfamethoxazole Allergy Intermediate RASH Verified 11/13/24 11:31 [From BACTRIM] tramadol [TRAMADOL] Allergy Intermediate ITCHY, rash Verified 11/13/24 11:31 trimethoprim [From BACTRIM] Allergy Intermediate RASH Verified 11/13/24 11:31 sertraline Allergy Hives Verified 11/13/24 11:31 Exam Height,Weight and Vital Signs: Height 4 ft 11 in Weight 53.524 kg Vital Signs Temp Pulse Resp BP Pulse Ox O2 Del Method 11/13/24 11:34 97.5 F 50 16 118/62 100 Room Air Airway Mallampati Class: II TM Dist: >3cm Neck ROM: Full (Soreness in neck but ok extension) Loose/Missing/Broken Teeth: Yes (Missing molars. Denies broken or loose teeth) Heart: RRR Lungs: CTAB Assessment and Plan Assessment Anesthesia Assessment: Anesthesia Plan Discussed and Chart Reviewed Final Anesthetic Review Family History of Problems with Anesthesia: No History of Problems with Anesthesia: No NPO: Yes ASA Class: II Final Preanesthetic Review: No Changes in Pt Med Stat, Meds/Allgs Chart Reviewed, Consent Obtained/Reviewed and Anes Risks/Benef Reviewed Patient Risk: Intermediate Procedure Risk: Low Assessment/Block/Sedation in SS: Assess/Block/Sedation-SS Anesthetic Plan Anesthetic Plan: TIVA Disposition: Standard PACU
[2024-11-13 11:34] VITALS: BP 118/62; PULSE 50; RESP 16; TEMP 36.4; O2SAT 100; BMI 23.8
[2024-11-13] MEDS: Lactated Ringers 1,000 ML 100 ML IVCONT (11:47)
--- NOTE | 2024-11-13 12:42 | P.OPN-COLO_ITS ---
Colonoscopy Operative Note Operative Note Date of Service: 11/13/24 Narrative: FLEXIBLE TRANSORAL UPPER GASTROINTESTINAL ENDOSCOPY WITH BIOPSIES, SNARE POLYPECTOMY AND ESOPHAGEAL BALLOON DILATION AND COLONOSCOPY TILL CECUM WITH BIOPSIES AND SNARE POLYPECTOMY Pre-op diagnosis: Surveillance for colon polyps, dysphagia, epigastric pain Post-op diagnosis: GERD, Gastritis, Gastric polyp, Colon Polyps, Diverticulosis, hemorrhoids Endoscopist:? Pinky Marques MD Anesthesia:?MAC UPPER ENDOSCOPY Consent: Indications for the procedure and potential complications of bleeding, perforation, reaction to medications and missed diagnosis were discussed with the patient and informed consent was obtained. Instrument: Olympus GIF H 190 mid size upper endoscope Monitoring: Vital signs and clinical assessment, continuous EKG monitoring, Pulse oximetry, Carbon Dioxide monitoring and blood pressure monitoring were done throughout the procedure. Procedure: The patient was placed in the left lateral decubitis position and pre-procedure medications were administered and a bite block was placed. The endoscope was inserted into the mouth and advanced under direct vision to the third part of duodenum. A careful inspection was made as the upper endoscope was withdrawn including a retroflexed examination of the proximal stomach; Findings and interventions are described below. Findings: Larynx: Normal Esophagus: GE junction at 35 cms, small hiatal hernia 35 to 37 cms. Mildly tortous esophagus without stricture or ring. No esophagitis or Santamaria's. Stomach: Multiple 1-2 cms benign appearing polyps in the gastric fundus - biopsied. Moderate diffuse gastric erythema - biopsies were obtained from the antrum. Grade 2 flap valve on retroflexed examination of the cardia. Duodenum: Normal bulb and descending duodenum Biopsies were obtained from descending duodenum to check for celiac sprue Intervention: Biopsies as noted above COLONOSCOPY PROCEDURE NOTE Instrument: Olympus PCF H 190 L variable stiffness pediatric colonoscope Monitoring: Vital signs and clinical assessment, intermittent blood pressure monitoring, continuous EKG monitoring, Pulse oximetry and Carbon Dioxide monitoring were done throughout the procedure. Please see anesthesia flowsheet. Colon withdrawl time was 12 minutes. Procedure: The patient was placed in the left lateral decubitis position and pre-procedure medications were administered. After a digital rectal examination of the ano-rectum, the video colonoscope was inserted into the rectum and advanced through the colon to the cecum. The colonoscope was slowly withdrawn in a retrograde panoramic fashion and the colon mucosa was carefully examined including a retroflexed view of the rectum. Findings and interventions are described below. Procedure Difficulty: without difficulty Findings: Terminal Ileum: Not evaluated Cecum: Normal Ascending Colon: Normal Transverse Colon: Normal Descending Colon: Normal Sigmoid Colon: A 3-4 mm sessile polyp removed with a cold bx. Moderate diverticulosis Anastomosis at 15 cms Rectum: Normal Ano-rectum: Moderate internal hemorrhoids Colon preparation: Good after copious irrigation. [place] Bowel Preparation Scale Right colon; 2 Transverse colon: 2 Left colon; 2 (0 = Unprepared colon segment with mucosa not seen due to solid stool that cannot be cleared. 1 = Portion of mucosa of the colon segment seen, but other areas of the colon segment not well seen due to staining, residual stool and/or opaque liquid. 2 = Minor amount of residual staining, small fragments of stool and/or opaque liquid, but mucosa of colon segment seen well. 3 = Entire mucosa of colon segment seen well with no residual staining, small fragments of stool or opaque liquid) Impression and Post Procedure Diagnosis: Endoscopy Findings: ESOPHAGUS: Small hiatal hernia 35 to 37 cms. Mildly tortous esophagus without stricture or ring STOMACH: Mild gastritis and gastric polyps DUODENUM: Normal - biopsied to check for celiac sprue Colonoscopy Findings: One small polyp was removed Moderate diverticulosis seen in the sigmoid colon Moderate hemorrhoids on retroflexed exam. Plan: I will send a letter with biopsy results. Repeat Colonoscopy in 5 years if polyps are adenomatous and due to history of adenomatous colon polyps. Above findings were reviewed with the patient and relevant handouts were given and the discharge area. BIOPSIES SHOWED: A. Small bowel, biopsy: Small bowel mucosa with preserved villi and no specific change. B. Gastric antrum, biopsy: Gastric antral mucosa with minimal chronic inactive gastritis; negative for intestinal metaplasia and dysplasia. C. Gastric polyp: Fundic gland polyp with focal minimal chronic inactive inflammation; negative for intestinal metaplasia and dysplasia. D. Colon, sigmoid, polyp: Hyperplastic polyp. Comment: (B and C): Immunostains for H. pylori were negative Letter sent with biopsy results. Patient was placed on the colonoscopy recall list for repeat colonoscopy in 5 years.
--- NOTE | 2024-11-13 12:42 | MHC.SHP ---
Pre-Procedural Eval Section A - 24 Hr Update-Section A only Date of Service: 11/13/24 The patient is an INPATIENT: No The patient has been examined within 24 hours of the surgical procedure. The History & Physical has been completed within 30 days and I have reviewed it.: No Section B - Complete if H&P > 30 days Chief Complaint: Surveillance of colon polyps Relevant Family History (Specify if Yes): No Relevant Social History: None Present Medications: see Short Stay Collaborative assessment Medical History: Significant History (Chronic constipation Dysfunction of right rotator cuff Pain of right clavicle Overweight (BMI 25.0-29.9) Osteopenia Benign paroxysmal vertigo Postmenopausal Arthritis GERD (gastroesophageal reflux disease) Essential hypertension Anxiety Acquired hypothyroidism) History of Previous Operations: Relevant previous surgery/procedure and date(s) (S/P rotator cuff repair Cataract History of lumbar surgery History of thyroidectomy S/P FIORDALIZA (total abdominal hysterectomy) History of hemicolectomy Rectocele) Allergies: Allergies Allergy/AdvReac Type Severity Reaction Status Date / Time citalopram Allergy Intermediate hives Verified 11/13/24 11:31 duloxetine Allergy Intermediate nausea Verified 11/13/24 11:31 gabapentin Allergy Intermediate somnelence Verified 11/13/24 11:31 latex [LATEX] Allergy Intermediate RASH Verified 11/13/24 11:31 lisinopril [LISINOPRIL] Allergy Intermediate COUGH Verified 11/13/24 11:31 sulfamethoxazole Allergy Intermediate RASH Verified 11/13/24 11:31 [From BACTRIM] tramadol [TRAMADOL] Allergy Intermediate ITCHY, rash Verified 11/13/24 11:31 trimethoprim [From BACTRIM] Allergy Intermediate RASH Verified 11/13/24 11:31 sertraline Allergy Hives Verified 11/13/24 11:31 Review of Systems Sugical H&P ROS: Negative: Constitution, Cardiovascular and Respiratory and Yes, Specify: Gastrointestinal (post prandial epigastric pain) Exam Surgical H&P Exam: Normal: Heart, Normal: Lungs, Normal: Extremities and Normal: Abdomen Plan Diagnosis/Plan: Change (add EGD for epigastric pain and dysphagia) I have reviewed the history and physical and performed a pertinent physical examination on my patient. No changes have occurred unless specified. Time Spent With Patient Time: Total time managing care of this patient today ____ minutes.
[2024-11-13 13:50] VITALS: BP 103/63; PULSE 70; RESP 16; TEMP 36.3; O2SAT 100
[2024-11-13 14:05] VITALS: BP 113/64; PULSE 73; RESP 16; TEMP 36.3; O2SAT 100
== END 2024-11-13 14:42 | disposition home or self-care (01) ==
PROVIDERS: PCP Internal Medicine; Visit Provider Internal Medicine Gastroenterology
PROC: (CPT 45380; principal; 2024-11-13 12:40)
DX: Z12.11 Encounter for screening for malignant neoplasm of colon (principal); Z86.0101 Personal history of adenomatous and serrated colon polyps; K63.5 Polyp of colon; K57.30 Diverticulosis of large intestine without perforation or abscess without bleeding; K64.8 Other hemorrhoids; K59.09 Other constipation; Z90.49 Acquired absence of other specified parts of digestive tract; Z98.0 Intestinal bypass and anastomosis status; Z87.42 Personal history of other diseases of the female genital tract; R13.10 Dysphagia, unspecified; K21.9 Gastro-esophageal reflux disease without esophagitis; K29.50 Unspecified chronic gastritis without bleeding; K31.7 Polyp of stomach and duodenum; I10 Essential (primary) hypertension; E03.9 Hypothyroidism, unspecified; Z88.2 Allergy status to sulfonamides; Z88.8 Allergy status to other drugs, medicaments and biological substances; Z91.040 Latex allergy status
CPT/HCPCS: 45380; 43249; 43239; 88305; 88342; C1726; J1596; J2003; J2704

== ENCOUNTER → 2024-11-13 10:12 | Outpatient (BNV) | payer MEDICARE, SELFPAY | PROVIDERS: PCP Internal Medicine; Visit Provider Internal Medicine Gastroenterology | DX: Z12.11 Encounter for screening for malignant neoplasm of colon (principal); K63.5 Polyp of colon; K57.30 Diverticulosis of large intestine without perforation or abscess without bleeding; K64.8 Other hemorrhoids; R13.10 Dysphagia, unspecified; R10.13 Epigastric pain; K31.7 Polyp of stomach and duodenum | CPT/HCPCS: 43239; 45380 ==

== ENCOUNTER 2024-12-24 14:13 | Outpatient (AMB) | payer MEDICARE, SELFPAY ==
--- NOTE | 2024-12-24 14:31 | A.OFFPC_ITS ---
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 Accompanied by: Self / Same As Patient Allergies citalopram Allergy (Intermediate, Verified 12/24/24 14:35) hives duloxetine Allergy (Intermediate, Verified 12/24/24 14:35) nausea gabapentin Allergy (Intermediate, Verified 12/24/24 14:35) somnelence latex [LATEX] Allergy (Intermediate, Verified 12/24/24 14:35) RASH lisinopril [LISINOPRIL] Allergy (Intermediate, Verified 12/24/24 14:35) COUGH sulfamethoxazole [From BACTRIM] Allergy (Intermediate, Verified 12/24/24 14:35) RASH tramadol [TRAMADOL] Allergy (Intermediate, Verified 12/24/24 14:35) ITCHY, rash trimethoprim [From BACTRIM] Allergy (Intermediate, Verified 12/24/24 14:35) RASH sertraline Allergy (Verified 12/24/24 14:35) Hives Tobacco use date assessed: 12/24/24 Fall risk assessment: No Falls in past year Last assessed Fall Risk: 12/24/24 Dental Screening Dental Screen Date: 12/24/24 Did you have a dental visit in the last 12 months?: Yes Did you have a dental problem in the last 6 months where you did not have access to dental care?: No Was dental information given to patient?: Patient has dentist HPI Dizziness HPI Details The patient is a 69-year-old female with significant past medical history chronic constipation, hypokalemia, general anxiety, essential hypertension, acquired hypothyroidism, pure hypercholesterolemia The patient is presenting today with complaints of positional dizziness Reports that this has been going on for a month Reports that her symptoms are generated when she moves her head Or at times when she closed her eyes She reported intermittent symptoms Denies ringing in the ears Denies ear pain, reports feeling like she is going to fall Denies falling --pt referral for concern of BPV. mecliz ine 25 mg prn ordered Reports ongoing nasal congestion nasal congestion Reports watery nasal secretions Reports sometimes she feels like something stock in her throat This sensation feeling like she can not breathe at time Reports taking allergy medication Reports seasonal allergies On exam: Left external ear inferior region with red/irriated area ofloxacin ear drop ordered. The patient has a f/u appt with Dr. Pelaez in -keep that appt follow up sooner for any concerns FORMERLY [facility], [facility] Medical History Moderate recurrent major depression Chronic constipation Dysfunction of right rotator cuff Pain of right clavicle Overweight (BMI 25.0-29.9) Osteopenia Benign paroxysmal vertigo Postmenopausal Arthritis GERD (gastroesophageal reflux disease) Essential hypertension Anxiety Acquired hypothyroidism Pure hypercholesterolemia Surgical History S/P rotator cuff repair Cataract History of lumbar surgery History of thyroidectomy S/P FIORDALIZA (total abdominal hysterectomy) History of hemicolectomy Rectocele Family History Father No problems noted. Mother Diabetes Stroke Hypertension Brother Lung cancer Social History Housing: Apartment Alcohol intake: never Patient Tobacco Use Status: Never used Tobacco e-Cigarette/Vaping Use: Never Used Second Hand Smoke Exposure: No service: No Current occupational status: employed Current occupation: [employer] Current occupational exposures/hazards: No Cognitive needs: No Hearing needs: No Vision needs: Yes Questionnaire PHQ-9 Over the last 2 weeks, how often have you been bothered by any of the following problems? 1. Little interest or pleasure in doing things: not at all 2. Feeling down, depressed, or hopeless: not at all 3. Trouble falling or staying asleep, or sleeping too much: not at all 4. Feeling tired or having little energy: not at all 5. Poor appetite or overeating: not at all 6. Feeling bad about yourself - or that you are a failure or have let yourself or your family down: not at all 7. Trouble concentrating on things, such as reading the newspaper or watching television: not at all 8. Moving or speaking so slowly that other people could have noticed. Or the opposite - being so fidgety or restless that you have been moving around a lot more than usual: not at all 9. Thoughts that you would be better off or of hurting yourself in some way: not at all Total score: 0 Depression Screening Interpretation: Negative Depression Screening Done: Yes 55902 - PHQ-9 Billing: Yes Source: Developed by Drs. Valdemar Estes, Joanie Oreilly, Charles Huff and colleagues, with an educational kj from [employer]. Thrive Questionnaire Date Thrive assessed: 12/24/24 I am a: Patient What is your living situation today?: I have a steady place to live Within the past 12 months, did the food you bought not last and you didn't have the money to get more?: Never true Within the past 12 months, did you worry whether your food would run out before you got money to buy more?: Never true Do you have trouble paying for medicines?: No Do you have trouble getting transportation to medical appointments?: No Do you have trouble paying your heating and electricity bill?: No Do you have trouble taking care of your child, family member or friend?: No Do you have trouble with day-to-day activities such as bathing, preparing meals, shopping, managing finances, etc.?: No Are you currently unemployed and looking for a job?: No Are you interested in more education?: No Please select the resources that you would like help with: None Currently or been in a relationship where the following occur: No concerns reported THRIVE Score: 0 AUDIT C Alcohol Use Questionnaire (AUDIT-C) 1. How often do you have a drink containing alcohol?: Never Total Score: 0 JANNETH-7 AMB Questionnaire JANNETH-7 Date JANNETH - 7 assessed: 12/24/24 Feeling nervous, anxious, or on edge: 0 = Not at all Not being able to stop or control worryin = Not at all Worrying too much about different things: 0 = Not at all Trouble relaxin = Not at all Being so restless that it is hard to sit still: 0 = Not at all Becoming easily annoyed or irritable: 0 = Not at all Feeling afraid as if something awful might happen: 0 = Not at all Total JANNETH-7 score (0-4 normal; 5-9 mild; 10-14 moderate; 15-21 severe): 0 Source: Developed by Drs. Valdemar Estes, Joanie Oreilly, Charles Huff and colleagues, with an educational kj from [employer]. JANNETH-7 Assessment Billing JANNETH-7 Assessment Tool: JANNETH-7 Assessment 56607 Review of Systems Const Details: Denies chills, Denies fatigue, Denies fever(s), Denies headache(s) and Denies weakness HEENT Denies change in vision, + positional dizziness, Denies headache(s), Denies hearing loss, +ongoing nasal congestion, Denies sinus pain, Denies sinus pressure and Denies sore throat Card Denies chest pain, Denies lightheadedness, Denies dyspnea and Denies other (palpitations) Resp Denies cough, Denies dyspnea and Denies wheezing GI Denies abdominal pain, Denies melena, Denies hematochezia, Denies change in bowel habits, Denies dyspepsia and Denies nausea Denies hematuria and Denies dysuria Musc Denies abnormal gait, Denies myalgias, Denies arthralgias, Denies numbness and Denies tingling Skin/Breast Denies rash, Denies unusual bruising and Denies wounds Neuro Denies abnormal gait, + positional dizziness, Denies headache(s), Denies memory loss, Denies numbness, Denies Sensory deficit (Neuro), Denies tingling and Denies weakness Psych Denies anxiety, Denies depression and Denies memory loss Endo Denies cold intolerance, Denies fatigue, Denies heat intolerance, Denies polydipsia and Denies polyuria Ethan/Lymph Denies easy bleeding and Denies easy bruising Aller/Immun Denies wheezing Physical exam (Primary Care) Vital Signs: Last Vital Signs Temp 96.8 F 12/24/24 14:32 Pulse 60 12/24/24 14:32 BP 112/62 12/24/24 14:32 Pulse Ox 97 12/24/24 14:32 Oxygen Delivery Method Room Air 12/24/24 14:32 BMI result Body Mass Index 24.8 Tobacco/Smoking Status: Tobacco use Status Tobacco use date assessed 12/24/24 12/24/24 14:37 Patient Tobacco Use Status Never used Tobacco 12/24/24 14:37 Tobacco use type 12/24/24 13:04 e-Cigarette/Vaping Use Never Used 12/24/24 14:37 PHQ-9: PHQ-9 Score PHQ-9: Total score 0 12/24/24 14:55 Depression Screening Interpretation: Negative Thrive Assessment: Date of Thrive Assessment Date Thrive assessed 12/24/24 12/24/24 14:37 Currently or been in a relationship where the following occur: No concerns reported Const Other: General: no acute distress, well developed, alert and awake Nutritional Appearance: well nourished Orientation/consciousness: patient oriented x3 HENMT Head: Yes normocephalic and Yes atraumatic Ears: hearing grossly normal bilaterally and TM's normal bilaterally General nose exam: Normal external nose present and pink nasal passage and mildly boggy turbinates Mouth: Normal oral and palatal mucosa present and moist mucous membranes Eyes Pupils: Equal, round and reactive pupils present and Pupil accommodation reflex normal Neck Neck: Yes normal visual inspection, Yes no lymphadenopathy and Yes trachea midline Thyroid: Thyroid normal Carotids: no bruits Lymphatic: no lymphadenopathy noted Chest Chest palpation & inspection: normal inspection of the chest Resp Effort & Inspection: normal respiratory effort Auscultation: clear to auscultation bilaterally Cardio Rate: regular rate Rhythm: regular rhythm Heart sounds: S1 normal heart sound present, S2 normal heart sound present, no gallops, no murmurs and no rubs Bruits: no abdominal aortic bruits and no carotid bruits GI Palpation (GI): Abdomen soft and nontender to palpation Auscultation: normal bowel sounds General: Yes no CVA tenderness Back/Spine/Pelvis Back: no CVA tenderness Skin General: warm and dry. Normal skin color. Normal skin turgor Lesions: no lesions Nails: normal Neuro General: patient oriented x3, gait normal Cranial nerves: Yes Equal, round and reactive pupils present Cognition (Neuro): normal cognition Gait exam (Neuro): Normal gait present Extrem General: Yes normal to inspection, No edema and No calf tenderness Psych Appearance: grossly normal Affect: normal affect Attitude: cooperative Thought process: Normal thought process present Coding Level of Care Code Est Pt Level 3 (58362) Diagnoses Benign paroxysmal positional vertigo due to bilateral vestibular disorder H81.13 Laterality: bilateral Nasal congestion R09.81 Otitis externa in other diseases classified elsewhere, left ear H62.42 Additional Codes PHQ-9 - 01060 - PHQ-9 Billing: Yes ([id number]) JANNETH-7 Assessment Billing - JANNETH-7 Assessment Tool: JANNETH-7 Assessment 27432 ([id number]) Time Spent (min) 29 Assessment & Plan Assessment & Plan (1) BPV (benign positional vertigo): Code(s): H81.10 - Benign paroxysmal vertigo, unspecified ear Category: Medical Qualifiers: Laterality: bilateral Qualified Code(s): H81.13 - Benign paroxysmal vertigo, bilateral Plan: Positional dizziness, aggravated with turning her head enclosed in her eyes Refer to PT vestibular therapy (2) Nasal congestion: Code(s): R09.81 - Nasal congestion Category: Medical Plan: Reports ongoing nasal congestion Reports that she is already taking some medication Encourage fluids intake (3) Otitis externa in other diseases classified elsewhere, left ear: Code(s): H62.42 - Otitis externa in other diseases classified elsewhere, left ear Category: Medical Plan: Left ear inferior aspect noted a small irritated red area Ofloxacin 0.3% ordered Orders: Orders PT Evaluation and Treatment 12/24/24 H81.10 - Benign paroxysmal vertigo, unspecified ear Medications: New meclizine 25 mg PO BID PRN 60 tabs 0RF dizziness ofloxacin 0.3% 10 drps otic (ears) BID 14 days 10 mL 0RF
[2024-12-24 14:32] VITALS: BP 112/62; PULSE 60; TEMP 36; O2SAT 97; BMI 24.8
== END 2024-12-24 15:20 | disposition home or self-care (01) ==
PROVIDERS: PCP Internal Medicine
DX: R09.81 Nasal congestion (principal); H81.13 Benign paroxysmal vertigo, bilateral; H62.42 Otitis externa in other diseases classified elsewhere, left ear

== ENCOUNTER → 2024-12-24 14:13 | Outpatient (BNVA) | payer MEDICARE, SELFPAY | PROVIDERS: PCP Internal Medicine | DX: H81.13 Benign paroxysmal vertigo, bilateral (principal); R09.81 Nasal congestion; H62.42 Otitis externa in other diseases classified elsewhere, left ear | CPT/HCPCS: 96127; 99212 ==

== ENCOUNTER → 2025-01-01 12:08 | Outpatient (BNVA) | payer MEDICARE, SELFPAY | PROVIDERS: PCP Internal Medicine; Visit Provider Orthopaedic Surgery | DX: Z09 Encounter for follow-up examination after completed treatment for conditions other than malignant neoplasm (principal); Z87.39 Personal history of other diseases of the musculoskeletal system and connective tissue; Z98.890 Other specified postprocedural states | CPT/HCPCS: 99212 ==

== ENCOUNTER 2025-03-30 09:20 | Outpatient (REF) | payer MEDICARE, SELFPAY ==
[2025-03-30 10:20] LABS: Alanine Aminotransferase 17 U/L (0-31); Albumin Level 3.8 g/dL (3.5-5.0); Alkaline Phosphatase 94 U/L (39-117); Anion Gap 8 (12-20); Aspartate Amino Transferase 19 U/L (5-31); Bilirubin Total 0.6 mg/dL (0.0-1.0); Blood Urea Nitrogen 25 mg/dL (9-16); Calcium 9.1 mg/dL (8.4-10.2); Carbon Dioxide 32 mmol/L (22-29); Chloride 104 mmol/L (96-108); Cholesterol 201 mg/dL (<200); Estimated Glomerular Filt Rate > 60; Glucose Fasting 109 mg/dL (60-99); HDL Cholesterol 57 mg/dL (>40); LDL Cholesterol Calculated 115 mg/dL (<100); Potassium 4.1 mmol/L (3.3-5.1); Sodium 140 mmol/L (135-145); Total Protein 6.5 g/dL (6.5-8.0); Triglycerides 149 mg/dL (<150)
[2025-03-30 10:29] LABS: Thyroid Stimulating Hormone 1.21 uIU/mL (0.32-4.0); Vitamin D 25-OH Total 56.8 ng/mL (>30)
== END 2025-03-30 09:21 | disposition home or self-care (01) ==
LOC: HO.LAB 09:20
PROVIDERS: PCP Internal Medicine; Visit Provider Internal Medicine
DX: H81.13 Benign paroxysmal vertigo, bilateral (principal); E78.5 Hyperlipidemia, unspecified; E03.9 Hypothyroidism, unspecified; E55.9 Vitamin D deficiency, unspecified
CPT/HCPCS: 36415; 80053; 80061; 82306; 84443

== ENCOUNTER 2025-03-31 14:20 | Outpatient (AMB) | payer MEDICARE, SELFPAY ==
[2025-03-31 14:28] VITALS: BP 108/64; BMI 24.8
--- NOTE | 2025-03-31 14:28 | A.OFFPC_ITS ---
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 Accompanied by: Self / Same As Patient Allergies citalopram Allergy (Intermediate, Verified 03/31/25 14:55) hives duloxetine Allergy (Intermediate, Verified 03/31/25 14:55) nausea gabapentin Allergy (Intermediate, Verified 03/31/25 14:55) somnelence latex [LATEX] Allergy (Intermediate, Verified 03/31/25 14:55) RASH lisinopril [LISINOPRIL] Allergy (Intermediate, Verified 03/31/25 14:55) COUGH sulfamethoxazole [From BACTRIM] Allergy (Intermediate, Verified 03/31/25 14:55) RASH tramadol [TRAMADOL] Allergy (Intermediate, Verified 03/31/25 14:55) ITCHY, rash trimethoprim [From BACTRIM] Allergy (Intermediate, Verified 03/31/25 14:55) RASH sertraline Allergy (Verified 03/31/25 14:55) Hives Medication List - Last Reconciled 03/31/25 by Latisha Toney MD atorvastatin 20 mg PO BEDTIME 90 days cetirizine (Allergy Relief (cetirizine)) 10 mg PO DAILY PRN 30 days chlorthalidone 25 mg PO DAILY 90 days clonazepam 0.5 mg PO DAILY PRN 30 days docusate sodium (Colace) 100 mg PO BID irbesartan 300 mg PO DAILY 90 days levothyroxine 88 mcg PO DAILY 90 days meclizine 25 mg PO BID PRN meloxicam 15 mg PO DAILY methocarbamol 500 mg PO TID PRN ofloxacin 0.3% 10 drps otic (ears) BID 14 days omeprazole 20 mg PO DAILY 90 days psyllium husk (Metamucil) 1 tbsp PO BID simethicone (Gas Relief (simethicone)) 125 mg PO TID-QID PRN 30 days Tobacco use date assessed: 12/24/24 Fall risk assessment: No Falls in past year Last assessed Fall Risk: 03/31/25 Dental Screening Dental Screen Date: 12/24/24 HPI HPI Comments History of Present Illness Details The patient is a 69-year-old female presenting for her annual physical examination. She has been managing hyperlipidemia with atorvastatin 20 mg, maintaining stable cholesterol readings at recent levels of 201 mg/dL. She has prediabetes, with fasting glucose at 109 mg/dL, suggesting careful monitoring moving forward. Gastrointestinal concerns include a history of GERD treated with omeprazole. Previous evaluations, including an endoscopy and a colonoscopy, identified gastric polyps, specifically a hyperplastic type, and diverticulosis, respectively, both holding benign status with routine surveillance. The patient reports chronic insomnia, experiencing difficulties with sleep initiation and maintenance, an issue recognized as impacting her quality of life, prompting discussions on managed care options. Ongoing hypertension treatment with irbesartan and chlorthalidone has effectively controlled her blood pressure, and no episodes of severe flu ctuations have been noted upon assessment. - Received pneumonia vaccination at age 66. - Mammography last recorded in September 02; mammography was ordered for 2024. - Colonoscopy completed in November 2024 ; hyperplastic gastric polyp identified, with a subsequent follow-up scheduled in five years. - Blood glucose level, indicative of pre diabetes, at 109 mg/dL; recommended monitoring every six months. - [place] risk score at 3% discussed, maintaining current atorvastatin therapy for cardiovascular risk management. [facility] Medical History (Updated 03/31/25 @ 15:11 by Latisha Toney MD) Moderate recurrent major depression Chronic constipation Dysfunction of right rotator cuff Pain of right clavicle Overweight (BMI 25.0-29.9) Osteopenia Benign paroxysmal vertigo Postmenopausal Arthritis GERD (gastroesophageal reflux disease) Essential hypertension Anxiety Acquired hypothyroidism Pure hypercholesterolemia Surgical History S/P rotator cuff repair Cataract History of lumbar surgery History of thyroidectomy S/P FIORDALIZA (total abdominal hysterectomy) History of hemicolectomy Rectocele Family History Father No problems noted. Mother Diabetes Stroke Hypertension Brother Lung cancer Social History Housing: Apartment Alcohol intake: never Patient Tobacco Use Status: Never used Tobacco e-Cigarette/Vaping Use: Never Used Second Hand Smoke Exposure: No service: No Current occupational status: employed Current occupation: [email or web address] Current occupational exposures/hazards: No Cognitive needs: No Hearing needs: No Vision needs: Yes Questionnaire PHQ-9 Over the last 2 weeks, how often have you been bothered by any of the following problems? 1. Little interest or pleasure in doing things: not at all 2. Feeling down, depressed, or hopeless: not at all 3. Trouble falling or staying asleep, or sleeping too much: nearly every day 4. Feeling tired or having little energy: not at all 5. Poor appetite or overeating: not at all 6. Feeling bad about yourself - or that you are a failure or have let yourself or your family down: not at all 7. Trouble concentrating on things, such as reading the newspaper or watching television: not at all 8. Moving or speaking so slowly that other people could have noticed. Or the o pposite - being so fidgety or restless that you have been moving around a lot more than usual: not at all 9. Thoughts that you would be better off or of hurting yourself in some way: not at all Total score: 3 Depression Screening Interpretation: Positive Depression Screening Follow-up: Existing condition, In treatment and Follow-up Visit Requested Depression Screening Done: Yes 51346 - PHQ-9 Billing: Yes Source: Developed by Drs. Valdemar Estes, Joanie Oreilly, Charles Huff and colleagues, with an educational kj from [employer]. Thrive Questionnaire Date Thrive assessed: 12/24/24 I am a: Patient What is your living situation today?: I have a steady place to live Within the past 12 months, did the food you bought not last and you didn't have the money to get more?: Never true Within the past 12 months, did you worry whether your food would run out before you got money to buy more?: Never true Do you have trouble paying for medicines?: No Do you have trouble getting transportation to medical appointments?: No Do you have trouble paying your heating and electricity bill?: No Do you have trouble taking care of your child, family member or friend?: No Do you have trouble with day-to-day activities such as bathing, preparing meals, shopping, managing finances, etc.?: No Are you currently unemployed and looking for a job?: No Are you interested in more education?: No Please select the resources that you would like help with: None Currently or been in a relationship where the following occur: No concerns reported THRIVE Score: 0 AUDIT C Alcohol Use Questionnaire (AUDIT-C) 1. How often do you have a drink containing alcohol?: Never Total Score: 0 Score Reviewed/Action Taken: No JANNETH-7 AMB Questionnaire JANNETH-7 Date JANNETH - 7 assessed: 03/31/25 Feeling nervous, anxious, or on edge: 0 = Not at all Not being able to stop or control worryin = Not at all Worrying too much about different things: 0 = Not at all Trouble relaxin = Not at all Being so restless that it is hard to sit still: 0 = Not at all Becoming easily annoyed or irritable: 0 = Not at all Feeling afraid as if something awful might happen: 0 = Not at all Total JANNETH-7 score (0-4 normal; 5-9 mild; 10-14 moderate; 15-21 severe): 0 Source: Developed by Drs. Valdemar Estes, Joanie Oreilly, Charles Huff and colleagues, with an educational kj from [employer]. JANNETH-7 Assessment Billing JANNETH-7 Assessment Tool: JANNETH-7 Assessment 30720 Review of Systems Const All systems reviewed & are unremarkable except as noted in HPI and below Card Denies chest pain at rest, Denies chest pain with activity, Denies edema, Denies irregular heart rhythm, Denies claudication, Denies dyspnea, Denies dyspnea on exertion, Denies orthopnea, Denies paroxysmal nocturnal dyspnea and Denies slow heart rate Resp Denies cough, Denies dyspnea and Denies dyspnea on exertion GI Denies abdominal pain, Denies change in bowel habits, Denies excessive flatus, Denies nausea and Denies vomiting Physical exam (Primary Care) Vital Signs: Last Vital Signs BP 108/64 03/31/25 14:28 BMI result Body Mass Index 24.8 Tobacco/Smoking Status: Tobacco use Status Tobacco use date assessed 12/24/24 03/31/25 14:32 Patient Tobacco Use Status Never used Tobacco 03/31/25 14:32 Tobacco use type 12/24/24 13:04 e-Cigarette/Vaping Use Never Used 03/31/25 14:32 PHQ-9: PHQ-9 Score PHQ-9: Total score 3 03/31/25 15:10 Depression Screening Interpretation: Positive Depression Screening Follow-up: Existing condition, In treatment and Follow-up Visit Requested Thrive Assessment: Date of Thrive Assessment Date Thrive assessed 12/24/24 03/31/25 14:32 Currently or been in a relationship where the following occur: No concerns reported Resp Effort & Inspection: normal respiratory effort Auscultation: clear to auscultation bilaterally Cardio Jugular venous distension: no JVD Rate: regular rate Rhythm: regular rhythm Heart sounds: S1 normal heart sound present and S2 normal heart sound present Extrem General: Yes full ROM Coding Level of Care Code Est Pt Prev Care >65y(10656) Diagnoses Physical exam Z00.00 Mild recurrent major depression F33.0 Additional Codes JANNETH-7 Assessment Billing - JANNETH-7 Assessment Tool: JANNETH-7 Assessment 52489 ([id number]) PHQ-9 - 78312 - PHQ-9 Billing: Yes ([id number]) Time Spent (min) 31 Assessment & Plan Assessment & Plan (1) Physical exam: Code(s): Z00.00 - Encounter for general adult medical examination without abnormal findings Category: Medical (2) Mild recurrent major depression: Code(s): F33.0 - Major depressive disorder, recurrent, mild Category: Medical Plan The patient will continue on atorvastatin 20 mg for hyperlipidemia management, considering her stable cholesterol levels and a [place] risk score of 3%. Prediabetes will be monitored with regular glucose evaluations while focusing on appropriate lifestyle changes. GERD control with omeprazole is maintained, given the background of a hyperplastic gastric polyp and diverticulosis. Addressing insomnia, the patient may benefit from a trial of low-dose sleep aids. Hypertension is well-controlled with irbesartan and chlorthalidone, maintained alongside regular blood pressure monitoring. The current care plan requires no alterations outside routine preventive care assessments and adjustments. Patient was informed and verbally consented to the use of an ambient scribe for clinic note documentation during this visit. I have discussed the patient's current management for hyperlipidemia, maintaining atorvastatin 20 mg. We reviewed the significance of her [place] risk score and dietary influences on cholesterol levels. Given her stable cholesterol level, we agreed dietary measures and lifestyle modifications should suffice. I suggested biannual monitoring for prediabetes. We explored GERD management with omeprazole and follow-up implications for gastroenterological health, including the benign status of hyperplastic gastric polyps. Insomnia treatment options were discussed, agreeing on the potential benefit of sleep aids to improve quality of life. Hypertension was reviewed; current management remains effective. Follow-ups were recommended based on scheduled evaluations and surveillance. Orders: Orders Thyroid Stimulating Hormone 6 Months E03.9 - Hypothyroidism, unspecified Comprehensive [place]. Panel Fast 6 Months K59.09 - Other constipation MM tomosynthesis screening BI Today Z12.31 - Encounter for screening mammogram for malignant neoplasm of breast XR DEXA axial skeleton Today Z78.0 - Asymptomatic menopausal state Medications: New venlafaxine ER 37.5 mg PO BEDTIME 90 caps 0RF 90 days Patient Instructions: - Continue taking prescribed medications, including atorvastatin, irbesartan, chlorthalidone, and omeprazole, as directed. - Monitor blood glucose levels every six months. - Consider dietary adjustments, limiting egg yolk intake. - Expect a follow-up colonoscopy in five years. - Evaluate sleep patterns and consider trying prescribed sleep aids if insomnia persists. - Return for routine check-ups and screenings as advised.
== END 2025-03-31 15:09 | disposition home or self-care (01) ==
LOC: HO.HMCH 14:21
PROVIDERS: PCP Internal Medicine; Visit Provider Internal Medicine
DX: F33.0 Major depressive disorder, recurrent, mild (principal)

== ENCOUNTER → 2025-03-31 14:20 | Outpatient (BNVA) | payer MEDICARE, SELFPAY | PROVIDERS: PCP Internal Medicine; Visit Provider Internal Medicine | DX: Z00.00 Encounter for general adult medical examination without abnormal findings (principal); F33.0 Major depressive disorder, recurrent, mild | CPT/HCPCS: 96127; 99212 ==

== ENCOUNTER 2025-05-25 13:28 | Outpatient (REF) | payer MEDICARE, SELFPAY ==
--- NOTE | ~2025-05-25 | MM_ITS ---
EXAMINATION: MM SCREENING DIGITAL BREAST TOMOSYNTHESIS, BILATERAL CLINICAL INFORMATION: Screening. Asymptomatic. COMPARISON: Mammography: Comparison is made with available priors TECHNIQUE: Digital breast mammography with tomosynthesis is performed in both the craniocaudal and mediolateral oblique views along with computer-aided detection (CAD). FINDINGS: The breasts are heterogeneously dense, which may obscure small masses (ACR BI-RADS breast composition Category c). There are no significant masses, abnormal calcifications, or other abnormalities. MM/MM tomosynthesis screening BI IMPRESSION: No mammographic evidence of malignancy. ASSESSMENT: BI-RADS BI-RADS 1 - Negative RECOMMENDATION: Routine annual mammography screening. 1 year F/U This examination should not preclude the clinical evaluation of a suspicious palpable abnormality. This patient's information was entered into a reminder system with a target due date for their next mammogram. Electronically signed by: Bel Fay DO 06/12/2025 02:52 PM EDT
--- NOTE | ~2025-05-25 | MM_ITS ---
EXAMINATION: DXA BONE DENSITY AXIAL HISTORY: Z78.0 - Asymptomatic menopausal state TECHNIQUE: [employer] Dual energy absorptiometry (DEXA) of the lumbar spine, total left hip, and femoral neck was performed. COMPARISON: Comparison is made with the prior examination dated 03/01/2021. FINDINGS: The bone mineral density of the lumbar spine is 0.953, corresponding to a T-score of -1.8, and a Z-score of 0.2. This is indicative of osteopenia. This represents a BMD change of -0.5% compared to the prior exam. This is not statistically significant. The bone mineral density of the left total hip is 0.960, corresponding to a T-score of -0.4, and a Z-score of 1.3. This is indicative of normal bone mineral density. This represents a BMD change of -2.1% compared to the prior exam. This is not statistically significant. The bone mineral density of the left femoral neck is 0.795, corresponding to a T-score of -1.8, and a Z-score of 0.1. This is indicative of osteopenia. This represents a BMD change of -5.4% compared to the prior exam. FRACTURE RISK: The FRAX index suggests a ten year probability of major osteoporotic fracture of 6.0%, and of hip fracture 0.9%. MM/XR DEXA axial skeleton IMPRESSION: Based on bone mineral density, and according to World Health Organization (WHO) criteria, the diagnosis is consistent with osteopenia. All bone density values are in grams per centimeter squared (g/cm2). Statistically, 68% of repeat scans fall within 1 SD (+/- 0.010 g/cm2 for AP spine L1-L4) and 1 SD (+/- 0.012 g/cm2 for femur total) FRAX is a trademark of the [employer]'s [place] [facility] Metabolic Bone Disease, a World Health Organization (WHO) Collaborating Center. Electronically signed by: Valdemar Pool MD 05/26/2025 07:55 AM EDT
== END 2025-05-25 13:29 | disposition home or self-care (01) ==
LOC: HO.MAMMO 13:28
PROVIDERS: PCP Internal Medicine; Visit Provider Internal Medicine
DX: Z12.31 Encounter for screening mammogram for malignant neoplasm of breast (principal); Z13.820 Encounter for screening for osteoporosis; Z78.0 Asymptomatic menopausal state
CPT/HCPCS: 77063; 77067; 77080

== ENCOUNTER → 2025-05-25 14:00 | Outpatient (BNV) | payer MEDICARE, SELFPAY | PROVIDERS: PCP Internal Medicine; Visit Provider Radiology Diagnostic Radiology | DX: E28.39 Other primary ovarian failure (principal) | CPT/HCPCS: 77080 ==

== ENCOUNTER 2025-06-28 11:43 | Outpatient (AMB) | payer MEDICARE, SELFPAY ==
[2025-06-28 12:46] VITALS: BP 104/60; PULSE 57; TEMP 36.7; O2SAT 96; BMI 24.5
--- NOTE | 2025-06-28 12:46 | AM.OFFWIN_ITS ---
Intake Vital Signs 06/28/25 12:46 Height 4 ft 11 in Weight 121 lb 8 oz BMI 24.5 BP 104/60 Blood Pressure Location Lt brachial Position Sitting Pulse 57 Pulse Source Pulse Oximeter Temp 98.1 F Temp Source Oral Pulse Oximetry (%) 96 Oxygen Delivery Method Room Air Intake Visit Reasons: EP pain in upper LT back n difficulty breathing Intake Note: presents with left sided chest and back pain with dyspnea fatigue, also notes minimal chest congestion yesterday only Patient Tobacco Use Status: Never used Tobacco Allergies citalopram Allergy (Intermediate, Verified 06/28/25 12:51) hives duloxetine Allergy (Intermediate, Verified 06/28/25 12:51) nausea gabapentin Allergy (Intermediate, Verified 06/28/25 12:51) somnelence latex (LATEX) Allergy (Intermediate, Verified 06/28/25 12:51) RASH lisinopril (LISINOPRIL) Allergy (Intermediate, Verified 06/28/25 12:51) COUGH sulfamethoxazole (From BACTRIM) Allergy (Intermediate, Verified 06/28/25 12:51) RASH tramadol (TRAMADOL) Allergy (Intermediate, Verified 06/28/25 12:51) ITCHY, rash trimethoprim (From BACTRIM) Allergy (Intermediate, Verified 06/28/25 12:51) RASH sertraline Allergy (Verified 06/28/25 12:51) Hives Do you need a note to return to daycare/school/sports/work: No HPI HPI Comments History of Present Illness Details 70 y/o Female patient who presents to [facility] walk in clinic with c/o Chest Pains that started yesterday Saturday morning. Reports Pain as Compression like, exacerbated with breathing in Air. Denies SOB or Heart Palpitations. Denies any Cough or wheezing. [facility] Medical History (Updated 06/28/25 @ 13:43 by Clotilde Amador NP) Chest pain Moderate recurrent major depression Chronic constipation Dysfunction of right rotator cuff Pain of right clavicle Overweight (BMI 25.0-29.9) Osteopenia Benign paroxysmal vertigo Postmenopausal Arthritis GERD (gastroesophageal reflux disease) Essential hypertension Anxiety Acquired hypothyroidism Pure hypercholesterolemia Surgical History S/P rotator cuff repair Cataract History of lumbar surgery History of thyroidectomy S/P FIORDALIZA (total abdominal hysterectomy) History of hemicolectomy Rectocele Family History Father No problems noted. Mother Diabetes Stroke Hypertension Brother Lung cancer Social History Housing: Apartment Alcohol intake: never Patient Tobacco Use Status: Never used Tobacco e-Cigarette/Vaping Use: Never Used Second Hand Smoke Exposure: No service: No Current occupational status: employed Current occupation: [employer] Current occupational exposures/hazards: No Cognitive needs: No Hearing needs: No Vision needs: Yes Review of Systems Const All systems reviewed & are unremarkable except as noted in HPI and below Physical Exam Vital Signs: Last Vital Signs Temp 98.1 F 06/28/25 12:46 Pulse 57 06/28/25 12:46 BP 104/60 06/28/25 12:46 Pulse Ox 96 06/28/25 12:46 Oxygen Delivery Method Room Air 06/28/25 12:46 BMI result Body Mass Index 24.5 Const General: no acute distress Orientation/consciousness: patient oriented x3 Resp Effort & Inspection: normal respiratory effort, able to speak in complete sentences and no cough Auscultation: clear to auscultation bilaterally, no crackles, no rales, no rhonchi and no wheezes Cardio Heart sounds: S1 normal heart sound present and S2 normal heart sound present Neuro General: patient oriented x3 Psych Speech and movement: Normal speech and movement present Assessment & Plan Assessment & Plan (1) Chest pain: Code(s): R07.9 - Chest pain, unspecified Qualifiers: Chest pain type: unspecified Qualified Code(s): R07.9 - Chest pain, unspecified Plan: DDx's: NC vs GERD vs Muscle strain vs Costochondritis Ordered EKG (Sinus Rhythm). Ordered Chest Xray to r/o Infection. Orders: Orders AMB EKG-In Office Today R07.9 - Chest pain, unspecified XR chest 2V Today R07.9 - Chest pain, unspecified Coding Level of Care Code Est Pt Level 4 (32516) Diagnoses Chest pain, unspecified type R07.9 Chest pain type: unspecified Time Spent (min) 20
== END 2025-06-28 14:21 | disposition home or self-care (01) ==
PROVIDERS: PCP Internal Medicine; Visit Provider Nurse Practitioner Family
DX: R07.9 Chest pain, unspecified (principal)

== ENCOUNTER 2025-06-28 11:43 | Outpatient (REF) | payer MEDICARE, SELFPAY ==
--- NOTE | ~2025-06-28 | XR_ITS ---
EXAMINATION: XR CHEST CLINICAL INFORMATION: R07.9 - Chest pain, unspecified COMPARISON: 08/26/2019 TECHNIQUE: 2 views of the chest were obtained. FINDINGS: No significant abnormality is noted involving the heart, lungs, mediastinum, or soft tissues. There are anchors in the right proximal humerus related to rotator cuff repair. There is vague groundglass density in the subchondral marrow of the proximal right humerus. XR/XR chest 2V IMPRESSION: No acute disease in the chest. Vague groundglass density in the right humeral head could be related to avascular necrosis versus degenerative sclerosis. Right rotator cuff repair. Electronically signed by: Harshal Mata MD 06/28/2025 02:13 PM EDT
== END 2025-06-28 11:44 | disposition home or self-care (01) ==
LOC: HO.HMGCX 11:43
PROVIDERS: PCP Internal Medicine; Visit Provider Nurse Practitioner Family
DX: R07.9 Chest pain, unspecified (principal)
CPT/HCPCS: 71046; 93005; 99212

== ENCOUNTER → 2025-06-28 14:02 | Outpatient (BNV) | payer MEDICARE, SELFPAY | PROVIDERS: PCP Internal Medicine; Visit Provider Radiology Diagnostic Radiology | DX: R07.9 Chest pain, unspecified (principal) | CPT/HCPCS: 71046 ==

== ENCOUNTER 2025-07-08 11:08 | Outpatient (REF) | payer MEDICARE, SELFPAY ==
--- NOTE | ~2025-07-08 | MR_ITS ---
EXAMINATION: MR LUMBAR SPINE WITHOUT AND WITH CONTRAST CLINICAL INFORMATION: Worsening low back pain. Status post surgery. COMPARISON: December 20, 2018. No recent examination. TECHNIQUE: MRI of the lumbar spine was obtained using routine sequences with and without contrast. Intravenous contrast: Gadolinium based (Gadavist) 5.5 mL. No immediate complications. FINDINGS: Last rib-bearing vertebra labeled T12. There is an irregular area of STIR signal abnormality and heterogeneous enhancement involving the left and to a lesser extent right facet joints at L3-4. There is hyperintense STIR and heterogeneous enhancement in the tip of the posterior spinous processes of L4. There is no enhancing fluid collections within the epidural/subdural compartment of the central spinal canal nor the prevertebral compartment. There is subtle bone marrow STIR signal in the endplates of L3-4. There is subchondral cyst formation and Modic type I endplate changes at L3-4 with decreased intervertebral disc height. There is a grade 1 retrolisthesis L3-4 and L5-S1. There is a grade 1 anterolisthesis L4-5. There is an S-shaped curvature of the thoracolumbar spine with a dextroconvex rotoscoliosis apex at L3. There is no grouping or clumping of the neural elements of the filum terminalis. The conus medullaris ends at inferior endplate of T12 with normal signal. T12-L1: No disc herniation. No neuroforamina stenosis. L1-2: No disc herniation. Facet joint and ligamentum flavum hypertrophy. Trace of facet effusion. No compression upon neural elements. L2-3: Broad-based disc bulging. Facet joint and ligamentum flavum hypertrophy. No compression upon neural elements. Left neuroforamina narrowing likely secondary to scoliosis. L3-4: Broad-based disc bulging. Probably left hemilaminectomy. Facet joint and ligamentum flavum hypertrophy. Reduced AP diameter of the thecal sac. Left neuroforamina stenosis compressing the left L3 exiting nerve root. There is encroachment of the L4 nerve root on the lateral recesses. L4-5: Broad-based disc bulging. Facet joint and ligamentum flavum hypertrophy. Reduced AP diameter of the thecal sac. Left neuroforamina narrowing encroaching the left L4 and likely left L5 nerve roots. L5-S1: Broad-based disc bulging. Facet joint hypertrophy. No central spinal canal stenosis. Bilateral neuroforamina narrowing right and left side likely encroaching the exiting nerve roots. Asymmetric volume loss left psoas muscle likely denervation. MR/MR lumbar spine wo/w con IMPRESSION: Acute to subacute inflammatory processes involving the posterior elements/facet joints of L3-4. No epidural/subdural hematoma and or abscess. Dextroconvex rotoscoliosis apex at L3 resulting in left neuroforamina and stenosis L3-4 encroaching likely compressing the exiting nerve roots. Multilevel spondylosis. Electronically signed by: Alverto Guerrero MD 07/08/2025 01:39 PM EDT
== END 2025-07-08 11:09 | disposition home or self-care (01) ==
LOC: HO.MRI 11:08
PROVIDERS: PCP Internal Medicine; Visit Provider Physical Medicine & Rehabilitation
DX: M54.16 Radiculopathy, lumbar region (principal); M54.50 Low back pain, unspecified
CPT/HCPCS: 72158; A9585

== ENCOUNTER → 2025-07-08 11:39 | Outpatient (BNV) | payer MEDICARE, SELFPAY | PROVIDERS: PCP Internal Medicine; Visit Provider Radiology Diagnostic Radiology | DX: M46.96 Unspecified inflammatory spondylopathy, lumbar region (principal) | CPT/HCPCS: 72158 ==

== ENCOUNTER 2025-08-06 10:38 | Outpatient (REF) | payer MEDICARE, SELFPAY ==
--- NOTE | ~2025-08-06 | XR_ITS ---
EXAMINATION: XR LUMBAR SPINE 4 OR MORE VIEWS HISTORY: M41.20 - Other idiopathic scoliosis, site unspecified COMPARISON: Comparison is made with the prior examination dated 09/09/2024. FINDINGS: AP, and neutral, flexion, and extension lateral views of the lumbar spine are submitted. Osseous mineralization is normal. Five nonrib-bearing lumbar vertebral bodies are identified, maintaining normal height without evidence of fracture. Again seen is moderate rotatory dextroscoliosis. There is slight spondylolisthesis of L4 on L5 without significant change with flexion or extension. There is moderate degenerative disc disease with disc space narrowing and osteophyte formation. There is osteoarthritis of the facet joints. The visualized paraspinal soft tissues are unremarkable. XR/XR lumbar spine 4V min IMPRESSION: Moderate rotatory dextroscoliosis and degenerative disc disease. Slight spondylolisthesis of L4 on L5 without significant change with flexion or extension. Electronically signed by: Valdemar Pool MD 08/06/2025 12:17 PM EDT
== END 2025-08-06 10:39 | disposition home or self-care (01) ==
LOC: HO.HOSX 10:38
PROVIDERS: PCP Internal Medicine; Visit Provider Physician Assistant
DX: M41.20 Other idiopathic scoliosis, site unspecified (principal)
CPT/HCPCS: 72110; 99202

== ENCOUNTER 2025-08-06 10:38 | Outpatient (AMB) | payer MEDICARE, SELFPAY ==
[2025-08-06 11:05] VITALS: BMI 26.1
--- NOTE | 2025-08-06 11:05 | HO.SPINEOV ---
Vital Signs 08/06/25 11:05 Height 4 ft 10 in Weight 125 lb BMI 26.1 Intake Visit Reasons: low back pain Intake Note: Ms. Alston is here today c/o low back pain and right leg pins and needle sensation. 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 Required: No Allergies citalopram Allergy (Intermediate, Verified 08/06/25 11:06) hives duloxetine Allergy (Intermediate, Verified 08/06/25 11:06) nausea gabapentin Allergy (Intermediate, Verified 08/06/25 11:06) somnelence latex (LATEX) Allergy (Intermediate, Verified 08/06/25 11:06) RASH lisinopril (LISINOPRIL) Allergy (Intermediate, Verified 08/06/25 11:06) COUGH sulfamethoxazole (From BACTRIM) Allergy (Intermediate, Verified 08/06/25 11:06) RASH tramadol (TRAMADOL) Allergy (Intermediate, Verified 08/06/25 11:06) ITCHY, rash trimethoprim (From BACTRIM) Allergy (Intermediate, Verified 08/06/25 11:06) RASH sertraline Allergy (Verified 08/06/25 11:06) Hives Physical Exam Vital Signs: BMI result Body Mass Index 26.1 Assessment & Plan Assessment & Plan (1) Scoliosis (and kyphoscoliosis), idiopathic: Code(s): M41.20 - Other idiopathic scoliosis, site unspecified Category: Medical Plan This is a very nice 70-year-old female who has had chronic back pain for years. She generally just tried to deal with it with activity modifications and a leave. She did have a back surgery at 1 point about 6 years ago or so. It sounds like she had right leg pain radiculopathy which was treated with a simple decompression. That was done by at [facility]. The patient ultimately had some return of the right leg pain but primarily the back pain is the thing that is bothering her the most. It is aggravated with standing and walking. It gets better when she sits down but does not completely go away. She gets bilateral pain into her buttocks and hamstrings. She saw Dr. Martin at [facility]. He offered her Lyrica and consider doing injections but she did not feel comfortable with this so did not proceed. Physical therapy has only made it worse. She is here today to follow up with an MRI showing degenerative scoliosis and facet arthropathy. PMH: History of hypertension, high cholesterol, Graves disease, status post thyroidectomy, osteoporosis, GERD, history of rectocele with multiple open abdominal procedures to try to fix the situation including colon resection and hysterectomy/oophorectomy. She has also had shoulder surgery as well. Denies any issues with her cardiopulmonary system, renal or liver, infectious Disease endocrine or bleeding disorder/blood clots. Social hx: She does not smoke, drink or use any recreational drugs Medications: Levothyroxine, I losartan, atorvastatin, chlorthalidone, meclizine, omeprazole, venlafaxine, methocarbamol, vitamin-B, magnesium, biotin, Lyrica Allergies: Please see the [employer] list Physical exam: Gait is normal, strength and reflexes are normal. She has a well-healed vertical midline incision extending from her umbilicus all the way down to the pubic symphysis. She also has a well healed scar in her lower back. Imaging review: Lumbar MRI done at [place] shows multilevel degenerative disc disease with scoliosis, peak of the curve at L3-4 with lateral listhesis to the right. She has facet arthropathy at L3-4 with inflammatory reactive changes. No significant central canal stenosis seen. Upright x-rays done showing worsening of the curvature with standing. Impression: 70-year-old female, remote history of right-sided decompression surgery for lumbar radiculopathy about 6 years ago with at [facility], presents with chronic low back pain that has been going on for years with intermittent pain going into her hamstrings and pain that wraps around to her abdomen. Dr. Madrigal and I reviewed her imaging together, she does have scoliosis with the apex at L3-4. There is also significant facet arthropathy with enhancing reactive changes. She has a history of osteopenia. She could be a candidate for interbody fusion, however we could not do the oblique lumbar interbody approach because of all the previous abdominal surgeries. The patient would like to avoid instrumentation if possible, so Dr. Madrigal is considering an L3-4 endoscopic rhizotomy on her, but 1st we would need to successive median branch blocks at the L3 and L4 nerves bilaterally with 80% success. If we can demonstrate this, she would be a candidate for surgery endoscopically. She does not want to go back to [facility] so I will refer her to for the injections. Once these are completed I would like to see her back in the office. Thank you for allowing us to care for your patient. The total time spent with this visit with this patient was 45 minutes reviewing history, physical exam, lumbar imaging review, and implementation of treatment plan or further diagnostic testing Tony Madrigal MD,PhD [facility] Orders: Orders XR lumbar spine 4V min Today M41.20 - Other idiopathic scoliosis, site unspecified Referrals Pain Management Referral M41.20 - Other idiopathic scoliosis, site unspecified Coding Level of Care Code New Pt Level 4 (23442) Diagnoses Scoliosis (and kyphoscoliosis), idiopathic M41.20
== END 2025-08-06 12:20 | disposition home or self-care (01) ==
LOC: HO.HNS 10:38
PROVIDERS: PCP Internal Medicine; Visit Provider Physician Assistant
DX: M41.20 Other idiopathic scoliosis, site unspecified (principal)
CPT/HCPCS: 99204

== ENCOUNTER → 2025-08-06 11:43 | Outpatient (BNV) | payer MEDICARE, SELFPAY | PROVIDERS: PCP Internal Medicine; Visit Provider Radiology Diagnostic Radiology | DX: M43.16 Spondylolisthesis, lumbar region (principal) | CPT/HCPCS: 72110 ==

== ENCOUNTER 2025-08-30 08:58 | Outpatient (AMB) | payer MEDICARE, SELFPAY ==
[2025-08-30 09:05] VITALS: BP 100/56; PULSE 64; RESP 16; O2SAT 98; BMI 25.3
--- NOTE | 2025-08-30 09:05 | A.OFFVIS_ITS ---
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 Required: No Allergies citalopram Allergy (Intermediate, Verified 08/30/25 09:07) hives duloxetine Allergy (Intermediate, Verified 08/30/25 09:07) nausea gabapentin Allergy (Intermediate, Verified 08/30/25 09:07) somnelence latex (LATEX) Allergy (Intermediate, Verified 08/30/25 09:07) RASH lisinopril (LISINOPRIL) Allergy (Intermediate, Verified 08/30/25 09:07) COUGH sulfamethoxazole (From BACTRIM) Allergy (Intermediate, Verified 08/30/25 09:07) RASH tramadol (TRAMADOL) Allergy (Intermediate, Verified 08/30/25 09:07) ITCHY, rash trimethoprim (From BACTRIM) Allergy (Intermediate, Verified 08/30/25 09:07) RASH sertraline Allergy (Verified 08/30/25 09:07) Hives Medication List - Last Reconciled 08/30/25 by Belem Cerna LPN atorvastatin 20 mg PO BEDTIME 90 days biotin mcg PO calcium carbonate-vitamin D3 500 mg-5 mcg (200 unit) (Oysco 500/D) 1 tab PO BID cetirizine (Allergy Relief (cetirizine)) 10 mg PO DAILY PRN 30 days chlorthalidone 25 mg PO DAILY 90 days clonazepam 0.5 mg PO DAILY PRN 30 days docusate sodium (Colace) 100 mg PO BID irbesartan 300 mg PO DAILY 90 days levothyroxine 88 mcg PO DAILY 90 days magnesium aspart,citrate,oxide mg PO meclizine 25 mg PO BID PRN mecobalamin (vitamin B12) 1,000 mcg PO DAILY methocarbamol 500 mg PO TID PRN omeprazole 20 mg PO DAILY 90 days psyllium husk (Metamucil) 1 tbsp PO BID simethicone (Gas Relief (simethicone)) 125 mg PO TID-QID PRN 30 days HPI HPI Procedure Discussion Referred By [facility]: Details: History of Present Illness The patient is a 70-year-old female presenting for evaluation of percutaneous rhizotomy through diagnostic L3 and L4 medial branch blocks. She reports chronic low back pain radiating to both legs, more severe on the right side, persisting for over a year. The pain significantly impacts her mobility and daily activities. Her medical history includes spinal arthritis, contributing to her pain. She previously underwent injections and surgery approximately six to seven years ago. Oral medications provide partial relief, but physical movements worsen the pain. She is being evaluated for cutaneous endoscopic rhizotomy, with diagnostic medial branch blocks planned to determine the efficacy of rhizotomy. Pain Description - Onset: Pain has been present for over a year - Quality: Severe, debilitating pain - Location: Low back, radiating to both legs, more severe on the right - Exacerbating factors: Physical movements - Relieving factors: Oral medications provide some relief - Impact: Affects mobility and daily activities Physical Exam - Musculoskeletal: Pain on bending forward and backward, more pronounced on the right side Lumbar extension is more painful than lumbar flexion. Results Oswestry disability index score was 52% indicating severe disability. Pain Management - Affect: Pain significantly impacts patient's mood and psychological wellbeing, contributing to her decision to retire. - Analgesia: Current pain level is 10/10, oral medications provide some relief. - Adverse Effects: None reported from oral medications. - Activities of Daily Living: Pain affects mobility and daily activities, making it difficult to walk and perform tasks. - Aberrant Drug Related Behaviors: None reported. [facility] Medical History (Updated 09/02/25 @ 10:56 by Juventino Ferrara MD) Chest pain Moderate recurrent major depression Chronic constipation Dysfunction of right rotator cuff Pain of right clavicle Overweight (BMI 25.0-29.9) Osteopenia Benign paroxysmal vertigo Postmenopausal Arthritis GERD (gastroesophageal reflux disease) Essential hypertension Anxiety Acquired hypothyroidism Pure hypercholesterolemia Surgical History S/P rotator cuff repair Cataract History of lumbar surgery History of thyroidectomy S/P FIORDALIZA (total abdominal hysterectomy) History of hemicolectomy Rectocele Family History Father No problems noted. Mother Diabetes Stroke Hypertension Brother Lung cancer Social History Housing: Apartment Alcohol intake: never Patient Tobacco Use Status: Never used Tobacco e-Cigarette/Vaping Use: Never Used Second Hand Smoke Exposure: No service: No Current occupational status: employed Current occupation: [employer] Current occupational exposures/hazards: No Cognitive needs: No Hearing needs: No Vision needs: Yes Physical Exam Vital Signs: Last Vital Signs Pulse 64 08/30/25 09:05 Resp 16 08/30/25 09:05 BP 100/56 L 08/30/25 09:05 Pulse Ox 98 08/30/25 09:05 Oxygen Delivery Method Room Air 08/30/25 09:05 BMI result Body Mass Index 25.3 Assessment & Plan Assessment & Plan (1) Lumbar spondylosis: Code(s): M47.816 - Spondylosis without myelopathy or radiculopathy, lumbar region Category: Medical Plan Plan Patient was informed and verbally consented to the use of an ambient scribe for clinic note documentation during this visit. 1. Facet-Mediated Axial Low Back Pain Secondary To L4-5 And L5-S1 Facet Degeneration - Plan: Proceed with diagnostic L3 and L4 medial branch blocks to evaluate the potential benefit of percutaneous rhizotomy. - Follow-up: Based on response to injections, consider proceeding with rhizotomy if 80% pain relief is achieved. 2. Bilateral Lower Extremity Radiculopathy - Plan: Evaluate response to medial branch blocks as part of the assessment for rhizotomy. 3. Arthritis Of The Spine - Plan: Continue current oral medications for pain management. Discussion Notes I discussed with the patient the plan to perform diagnostic L3 and L4 medial branch blocks to assess the potential benefit of percutaneous rhizotomy. We reviewed the process, including the need for two rounds of test injections to evaluate if 80% pain relief is achieved before proceeding with rhizotomy. The patient was informed about the follow-up process and the timeline between injections. Patient Instructions - Await a call for scheduling the diagnostic injections. - Complete the questionnaire provided by the nurse before leaving. Coding Level of Care Code Est Pt Level 4 (46581) Diagnoses Lumbar spondylosis M47.816
== END 2025-08-30 09:43 | disposition home or self-care (01) ==
LOC: HO.PMC 08:59
PROVIDERS: PCP Internal Medicine; Referring Provider Physician Assistant; Visit Provider Internal Medicine
DX: M47.816 Spondylosis without myelopathy or radiculopathy, lumbar region (principal)
CPT/HCPCS: 99214

== ENCOUNTER → 2025-08-30 08:58 | Outpatient (BNVA) | payer MEDICARE, SELFPAY | PROVIDERS: PCP Internal Medicine; Referring Provider Physician Assistant; Visit Provider Internal Medicine | DX: M47.816 Spondylosis without myelopathy or radiculopathy, lumbar region (principal); M54.50 Low back pain, unspecified; G89.29 Other chronic pain | CPT/HCPCS: 99212 ==

== ENCOUNTER 2025-09-30 08:51 | Outpatient (REF) | payer MEDICARE, SELFPAY ==
[2025-09-30 11:18] LABS: Alanine Aminotransferase 14 U/L (0-31); Albumin Level 3.7 g/dL (3.5-5.0); Alkaline Phosphatase 116 U/L (39-117); Anion Gap 13 (12-20); Aspartate Amino Transferase 21 U/L (5-31); Blood Urea Nitrogen 30 mg/dL (9-16); Calcium 9.6 mg/dL (8.4-10.2); Carbon Dioxide 30 mmol/L (22-29); Chloride 103 mmol/L (96-108); Estimated Glomerular Filt Rate 60; Potassium 3.8 mmol/L (3.3-5.1); Sodium 142 mmol/L (135-145); Total Protein 6.5 g/dL (6.5-8.0)
[2025-09-30 11:33] LABS: Thyroid Stimulating Hormone 0.66 uIU/mL (0.32-4.0)
== END 2025-09-30 08:52 | disposition home or self-care (01) ==
LOC: HO.LAB 08:51
PROVIDERS: Visit Provider Internal Medicine
DX: K59.09 Other constipation (principal); E03.9 Hypothyroidism, unspecified
CPT/HCPCS: 36415; 80053; 84443

== ENCOUNTER 2025-10-05 13:12 | Outpatient (AMB) | payer MEDICARE, SELFPAY ==
[2025-10-05 13:21] VITALS: BP 96/60; PULSE 62; RESP 18; TEMP 36.3; O2SAT 98; BMI 25.6
--- NOTE | 2025-10-05 13:21 | A.OFFPC_ITS ---
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 Required: No Accompanied by: Self / Same As Patient Allergies citalopram Allergy (Intermediate, Verified 10/05/25 13:36) hives duloxetine Allergy (Intermediate, Verified 10/05/25 13:36) nausea gabapentin Allergy (Intermediate, Verified 10/05/25 13:36) somnelence latex (LATEX) Allergy (Intermediate, Verified 10/05/25 13:36) RASH lisinopril (LISINOPRIL) Allergy (Intermediate, Verified 10/05/25 13:36) COUGH sulfamethoxazole (From BACTRIM) Allergy (Intermediate, Verified 10/05/25 13:36) RASH tramadol (TRAMADOL) Allergy (Intermediate, Verified 10/05/25 13:36) ITCHY, rash trimethoprim (From BACTRIM) Allergy (Intermediate, Verified 10/05/25 13:36) RASH sertraline Allergy (Verified 10/05/25 13:36) Hives Medication List - Last Reconciled 10/05/25 by Latisha Toney MD atorvastatin 20 mg PO BEDTIME 90 days biotin mcg PO calcium carbonate-vitamin D3 500 mg-5 mcg (200 unit) (Oysco 500/D) 1 tab PO BID cetirizine (Allergy Relief (cetirizine)) 10 mg PO DAILY PRN 30 days chlorthalidone 25 mg PO DAILY 90 days clonazepam 0.5 mg PO DAILY PRN 30 days irbesartan 300 mg PO DAILY 90 days levothyroxine 88 mcg PO DAILY 90 days magnesium aspart,citrate,oxide mg PO meclizine 25 mg PO BID PRN mecobalamin (vitamin B12) 1,000 mcg PO DAILY methocarbamol 500 mg PO TID PRN omeprazole 20 mg PO DAILY 90 days psyllium husk (Metamucil) 1 tbsp PO BID simethicone (Gas Relief (simethicone)) 125 mg PO TID-QID PRN 30 days Tobacco use date assessed: 10/05/25 Fall risk assessment: No Falls in past year Last assessed Fall Risk: 10/05/25 Dental Screening Dental Screen Date: 10/05/25 Did you have a dental visit in the last 12 months?: Yes Did you have a dental problem in the last 6 months where you did not have access to dental care?: No Was dental information given to patient?: Patient has dentist HPI HPI Comments History of Present Illness Details The patient is a 70-year-old female presenting for management of chronic conditions and discussion of gastrointestinal complaints. The patient reports undergoing an endoscopy and colonoscopy last year. She states she was informed via letter that a stomach polyp was removed, though biopsy results from the EGD noted small bowel mucosa with preserved villi and no specific changes in the gastric specimen. She has been on omeprazole for many years for a persistent, non-specific stomach sensation. The colonoscopy revealed a hyperplastic polyp, which is benign, with a recommended follow-up in 10 years. The patient manages her hypertension with irbesartan 300 mg and chlorthalidone 25 mg, but reports recent home blood pressure readings of 100/56 mmHg. Her hypothyroidism is managed with levothyroxine 88 mcg, and recent thyroid labs were normal. She also takes atorvastatin 20 mg for hyperlipidemia. The patient has a history of multiple medication allergies, including citalopram, duloxetine, gabapentin, lisinopril, Bactrim, tramadol, and sertraline, all causing hives. She takes clonazepam as needed for anxiety. [facility] Medical History Chest pain Moderate recurrent major depression Chronic constipation Dysfunction of right rotator cuff Pain of right clavicle Overweight (BMI 25.0-29.9) Osteopenia Benign paroxysmal vertigo Postmenopausal Arthritis GERD (gastroesophageal reflux disease) Essential hypertension Anxiety Acquired hypothyroidism Pure hypercholesterolemia Surgical History S/P rotator cuff repair Cataract History of lumbar surgery History of thyroidectomy S/P FIORDALIZA (total abdominal hysterectomy) History of hemicolectomy Rectocele Family History Father No problems noted. Mother Diabetes Stroke Hypertension Brother Lung cancer Social History Housing: Apartment Alcohol intake: never Patient Tobacco Use Status: Never used Tobacco e-Cigarette/Vaping Use: Never Used Second Hand Smoke Exposure: No service: No Current occupational status: employed Current occupation: [employer] Current occupational exposures/hazards: No Cognitive needs: No Hearing needs: No Vision needs: Yes Questionnaire Thrive Questionnaire Date Thrive assessed: 03/31/25 I am a: Patient What is your living situation today?: I have a steady place to live Within the past 12 months, did the food you bought not last and you didn't have the money to get more?: Never true Within the past 12 months, did you worry whether your food would run out before you got money to buy more?: Never true Do you have trouble paying for medicines?: No Do you have trouble getting transportation to medical appointments?: No Do you have trouble paying your heating and electricity bill?: No Do you have trouble taking care of your child, family member or friend?: No Do you have trouble with day-to-day activities such as bathing, preparing meals, shopping, managing finances, etc.?: No Are you currently unemployed and looking for a job?: No Are you interested in more education?: No Please select the resources that you would like help with: None Currently or been in a relationship where the following occur: No concerns reported THRIVE Score: 0 JANNETH-7 AMB Questionnaire JANNETH-7 Date JANNETH - 7 assessed: 03/31/25 Source: Developed by Drs. Valdemar Estes, Joanie Oreilly, Charles Huff and colleagues, with an educational kj from [employer]. Review of Systems Const All systems reviewed & are unremarkable except as noted in HPI and below Card Denies chest pain at rest, Denies chest pain with activity, Denies edema, Denies irregular heart rhythm, Denies claudication, Denies dyspnea, Denies dyspnea on exertion, Denies orthopnea, Denies paroxysmal nocturnal dyspnea and Denies slow heart rate Resp Denies cough, Denies dyspnea and Denies dyspnea on exertion GI Denies abdominal pain, Denies change in bowel habits, Denies excessive flatus, Denies nausea and Denies vomiting Denies urinary incontinence, Denies urinary hesitancy and Denies urinary urgency Neuro Denies lack of coordination Physical exam (Primary Care) Vital Signs: Last Vital Signs Temp 97.3 F 10/05/25 13:21 Pulse 62 11/04/25 13:21 Resp 18 10/05/25 13:21 BP 96/60 10/05/25 13:21 Pulse Ox 98 10/05/25 13:21 Oxygen Delivery Method Room Air 10/05/25 13:21 BMI result Body Mass Index 25.6 Tobacco/Smoking Status: Tobacco use Status Tobacco use date assessed 10/05/25 10/05/25 13:31 Patient Tobacco Use Status Never used Tobacco 10/05/25 13:31 Tobacco use type 12/24/24 13:04 e-Cigarette/Vaping Use Never Used 10/05/25 13:31 Thrive Assessment: Date of Thrive Assessment Date Thrive assessed 03/31/25 10/05/25 13:31 Currently or been in a relationship where the following occur: No concerns reported Resp Effort & Inspection: normal respiratory effort Auscultation: clear to auscultation bilaterally Cardio Jugular venous distension: no JVD Rate: regular rate Rhythm: regular rhythm Heart sounds: S1 normal heart sound present and S2 normal heart sound present Extrem General: Yes full ROM Office Procedures Flu Questionnaire Does the patient have a severe egg allergy?: No Does the patient have severe life threatening allergies?: No Does the patient have a fever or illness today?: No Has the patient ever had Guillain-B[place] Syndrome?: No Has the patient ever had any past reaction to a flu shot?: No Immunizations Fluarix [id number] (PF) 45 mcg (15 mcg x 3)/0.5 mL IM syringe Performing Provider: Latisha Toney MD [facility] [place] [facility] Administered by: ALEXSANDRA Shipley on 10/05/25 14:01 Dose Route Admin Location Dispensed Lot Number Expiration Date NDC Director Of Dementia Operations 0.5 mL IM Left Deltoid 0.5 mL [id number] 05/31/26 22366-957-33 [employer]LA[employer]O SMITHKLINE VIS Given Date VIS Provided VIS Publication Date 10/05/25 Single Vaccine 25 Eligibility Eligibility Date Funding Source Not [facility] Eligible 10/05/25 Private Coding Level of Care Code Est Pt Level 4 (78142) Complex EM visit Add On G2211 Diagnoses Essential hypertension I10 Acquired hypothyroidism E03.9 Chronic GERD K21.9 Nasal congestion R09.81 Lumbar pain M54.50 Pure hypercholesterolemia E78.00 Time Spent (min) 22 Assessment & Plan Assessment & Plan (1) Essential hypertension: Code(s): I10 - Essential (primary) hypertension Category: Medical (2) Acquired hypothyroidism: Code(s): E03.9 - Hypothyroidism, unspecified Category: Medical (3) Chronic GERD: Code(s): K21.9 - Gastro-esophageal reflux disease without esophagitis Category: Medical (4) Nasal congestion: Code(s): R09.81 - Nasal congestion Category: Medical (5) Lumbar pain: Code(s): M54.50 - Low back pain, unspecified Category: Medical (6) Pure hypercholesterolemia: Code(s): E78.00 - Pure hypercholesterolemia, unspecified Category: Medical Plan Plan 1. Hypertension The patient's blood pressure is low, with readings of 96/60 mmHg and 100/56 mmHg. Due to hypotension, chlorthalidone will be discontinued. 2. Hypothyroidism The patient's recent thyroid labs were normal. She will continue her current dose of levothyroxine. 3. Gastroesophageal Reflux Disease (Gerd) The patient reports persistent, non-specific stomach discomfort despite long- term omeprazole use. The plan is to switch her medication to pantoprazole, which is stronger. An upper GI study will also be ordered for further evaluation. The patient will continue a low-acid diet. 4. Postnasal Drip Physical exam revealed a very red, irritated throat without inflammation, suggestive of postnasal drip. A nasal spray will be prescribed. 5. Health Maintenance The patient's colonoscopy last year revealed a benign hyperplastic polyp, and the next screening is due in 2033. Fasting labs will be ordered for April. An influenza vaccine will be administered today. Orders: Orders Vitamin D 25-OH Total 5 Months E55.9 - Vitamin D deficiency, unspecified [place] upper GI series Today K21.9 - Gastro-esophageal reflux disease without esophagitis Lipid Panel 5 Months E78.5 - Hyperlipidemia, unspecified Thyroid Stimulating Hormone 5 Months E03.9 - Hypothyroidism, unspecified Comprehensive [place]. Panel Fast 5 Months E78.00 - Pure hypercholesterolemia, unspecified Influenza [id number] Immunization Today Z23 - Encounter for immunization Referrals Gastroenterology Referral K21.9 - Gastro-esophageal reflux disease without esophagitis Medications: New pantoprazole 40 mg PO DAILY 90 tabs 1RF 90 days fluticasone propionate 50 mcg/actuation (Flonase Allergy Relief) administer into each nostril 1 spray intranasal DAILY 16 grams 0RF 30 days Discontinued omeprazole Discontinued Reason: Patient Completed Course 20 mg PO DAILY 90 days 90 caps 3RF K21.9 - Gastro-esophageal reflux disease without esophagitis chlorthalidone Discontinued Reason: Patient Completed Course 25 mg PO DAILY 90 days 90 tabs 1RF I10 - Essential (primary) hypertension
== END 2025-10-05 14:00 | disposition home or self-care (01) ==
LOC: HO.HMCH 13:13
PROVIDERS: PCP Internal Medicine; Visit Provider Internal Medicine
DX: I10 Essential (primary) hypertension (principal); E03.9 Hypothyroidism, unspecified; K21.9 Gastro-esophageal reflux disease without esophagitis; R09.81 Nasal congestion; M54.50 Low back pain, unspecified; E78.00 Pure hypercholesterolemia, unspecified; Z23 Encounter for immunization

== ENCOUNTER → 2025-10-05 13:12 | Outpatient (BNVA) | payer MEDICARE, SELFPAY | PROVIDERS: PCP Internal Medicine; Visit Provider Internal Medicine | DX: I10 Essential (primary) hypertension (principal); E03.9 Hypothyroidism, unspecified; K21.9 Gastro-esophageal reflux disease without esophagitis; R09.81 Nasal congestion; M54.50 Low back pain, unspecified; E78.00 Pure hypercholesterolemia, unspecified; Z23 Encounter for immunization | CPT/HCPCS: 90471; 90656; 99212 ==

== ENCOUNTER 2025-11-12 11:26 | Outpatient (AMB) | payer MEDICARE, SELFPAY ==
--- NOTE | 2025-11-12 11:35 | MHC.OFFVIS ---
Vital Signs 11/12/25 11:36 Height 4 ft 10 in Weight 121 lb BMI 25.3 BP 157/74 H Blood Pressure Location Lt brachial Position Sitting Pulse 55 Intake Visit Reasons: Gastroesophageal reflux disease (GERD) Intake Note: Patient complex follow up for GERD/Carley pt anjum was 04/2024 and Colonoscopy was 11/[address] Marques and 5yrs recall. Patient cc: acid reflux, chocking sensation, abdominal bloating, constipation and tiredness on and off. 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 Accompanied by: Self / Same As Patient Allergies citalopram Allergy (Intermediate, Verified 11/12/25 11:35) hives duloxetine Allergy (Intermediate, Verified 11/12/25 11:35) nausea gabapentin Allergy (Intermediate, Verified 11/12/25 11:35) somnelence latex (LATEX) Allergy (Intermediate, Verified 11/12/25 11:35) RASH lisinopril (LISINOPRIL) Allergy (Intermediate, Verified 11/12/25 11:35) COUGH sulfamethoxazole (From BACTRIM) Allergy (Intermediate, Verified 11/12/25 11:35) RASH tramadol (TRAMADOL) Allergy (Intermediate, Verified 11/12/25 11:35) ITCHY, rash trimethoprim (From BACTRIM) Allergy (Intermediate, Verified 11/12/25 11:35) RASH sertraline Allergy (Verified 11/12/25 11:35) Hives Medication List - Last Reconciled 11/12/25 by Bekah Quezada CNP atorvastatin 20 mg PO BEDTIME 90 days biotin mcg PO calcium carbonate-vitamin D3 500 mg-5 mcg (200 unit) (Oysco 500/D) 1 tab PO BID cetirizine (Allergy Relief (cetirizine)) 10 mg PO DAILY PRN 30 days clonazepam 0.5 mg PO DAILY PRN 30 days fluticasone propionate 50 mcg/actuation (Flonase Allergy Relief) 1 spray intranasal DAILY 30 days irbesartan 300 mg PO DAILY 90 days levothyroxine 88 mcg PO DAILY 90 days magnesium aspart,citrate,oxide mg PO meclizine 25 mg PO BID PRN mecobalamin (vitamin B12) 1,000 mcg PO DAILY methocarbamol 500 mg PO TID PRN pantoprazole 40 mg PO DAILY 90 days simethicone (Gas Relief (simethicone)) 125 mg PO TID-QID PRN 30 days HPI HPI Gastroesophageal reflux disease (GERD): Details: Patient is a 70-year-old female with PMH of anxiety, hypertension, elevated cholesterol, hypothyroidism. Referred by PCP for further evaluation of reflux. Follow-up of gastroesophageal reflux disease. She is a new patient to me. In November of the previous year, the patient underwent an esophagogastroduodenoscopy (EGD) which revealed a small hiatal hernia, a mildly tortuous esophagus without stricture or ring, GERD, gastritis, and a fundic gland polyp. An esophageal balloon dilation was also performed at that time. On the same day, a colonoscopy was performed, which was complete with good preparation, and showed a small hyperplastic polyp, moderate diverticulosis of the sigmoid colon, and internal hemorrhoids. Since her procedures, the patient's primary complaint is a sensation of food getting stuck in her esophagus. She is taking pantoprazole, which she finds more effective than her previous omeprazole for stomach discomfort, particularly after dinner. However, her symptoms of heartburn and regurgitation of liquid or food have minimally improved with pantoprazole. The patient also has a history of constipation, for which she takes Miralax daily. She reports still having periods of up to three days without a bowel movement, which she will add prune juice to induced successful evacuation. She also experiences chronic bloating, which can be uncomfortable at times, particularly when her constipation symptoms are more pronounced. She denies any blood in her stool, abdominal pain, or nausea associated with her constipation. She reports a history of a rectocele which was surgically repaired. States she is not a candidate for a repeat surgery. The patient denies any personal history of cancer. Her weight has been stable. Patient denies: fever/chills, n/v, appetite changes, unintentional wt loss or melena/hematochezia. Social hx: - denies ETOH use -denies recreational drug use -non-smoker - family hx as below -denies personal hx of [place] [facility] Medical History (Updated 11/12/25 @ 12:45 by Bekah Quezada CNP) Bloating Dysphagia Chest pain Moderate recurrent major depression Chronic constipation Dysfunction of right rotator cuff Pain of right clavicle Overweight (BMI 25.0-29.9) Osteopenia Benign paroxysmal vertigo Postmenopausal Arthritis GERD (gastroesophageal reflux disease) Essential hypertension Anxiety Acquired hypothyroidism Pure hypercholesterolemia Surgical History S/P rotator cuff repair Cataract History of lumbar surgery History of thyroidectomy S/P FIORDALIZA (total abdominal hysterectomy) History of hemicolectomy Rectocele Family History Father No problems noted. Mother Diabetes Stroke Hypertension Brother Lung cancer Social History Housing: Apartment Alcohol intake: never Patient Tobacco Use Status: Never used Tobacco e-Cigarette/Vaping Use: Never Used Second Hand Smoke Exposure: No service: No Current occupational status: employed Current occupation: [employer] Current occupational exposures/hazards: No Cognitive needs: No Hearing needs: No Vision needs: Yes Review of Systems Const Reports as per HPI ENT Reports as per HPI Card Reports as per HPI Resp Reports as per HPI GI Reports as per HPI Reports as per HPI Physical Exam Vital Signs: Last Vital Signs Pulse 55 11/12/25 11:36 BP 157/74 H 11/12/25 11:36 BMI result Body Mass Index 25.3 Const General: healthy appearing, no acute distress and well developed Nutritional Appearance: average body habitus Orientation/consciousness: patient oriented x3 HEENT Head: Yes normal to inspection, Yes normocephalic and Yes atraumatic Face and sinus: Yes normal facial exam Eyes General: appearance normal, both eyes and all related structures Neck Neck: Yes normal visual inspection Resp Effort & Inspection: normal respiratory effort, able to speak in complete sentences, no tracheal deviation and symmetric chest movement Cardio Jugular venous distension: no JVD GI Inspection: Yes normal to inspection and No distended Palpation (GI): Soft to palpation, not firm, nontender and No hepatosplenomegaly present Auscultation: normal bowel sounds Neuro General: patient oriented x3 Gait exam (Neuro): Normal gait present Psych Appearance: grossly normal Mental Status: mental status grossly normal Speech and movement: Normal speech and movement present Affect: normal affect Attitude: cooperative Thought process: Normal thought process present Thought content: Normal thought content present Insight: Good insight present (Psych) Judgement: Good judgement present (Psych) Results Reviewed Results Reviewed: ADDENDUM Esophageal balloon dilation was performed with a 20 mm CRE balloon x 60 seconds ADDENDUM Corrected Operative Note (Please disregard the previous note) Signed Patient: Sandy Alston I MR#: [id number] : 1955 Acct:[id number] Age/Sex: 69 / F Attending Dr: Pinky Marques MD cc: Pinky Marques MD; Latisha Stafford MD~ Colonoscopy Operative Note Operative Note Date of Service: 11/13/24 Narrative: FLEXIBLE TRANSORAL UPPER GASTROINTESTINAL ENDOSCOPY WITH BIOPSIES, SNARE POLYPECTOMY AND ESOPHAGEAL BALLOON DILATION AND COLONOSCOPY TILL CECUM WITH BIOPSIES Pre-op diagnosis: Surveillance for colon polyps, dysphagia, epigastric pain Post-op diagnosis: GERD, Gastritis, Gastric polyps, Colon Polyp, Diverticulosis, hemorrhoids Endoscopist: Pinky Marques MD Anesthesia: MAC UPPER ENDOSCOPY Consent: Indications for the procedure and potential complications of bleeding, perforation, reaction to medications and missed diagnosis were discussed with the patient and informed consent was obtained. Instrument: Olympus GIF H 190 mid size upper endoscope Monitoring: Vital signs and clinical assessment, continuous EKG monitoring, Pulse oximetry, Carbon Dioxide monitoring and blood pressure monitoring were done throughout the procedure. Procedure: The patient was placed in the left lateral decubitis position and pre-procedure medications were administered and a bite block was placed. The endoscope was inserted into the mouth and advanced under direct vision to the third part of duodenum. A careful inspection was made as the upper endoscope was withdrawn including a retroflexed examination of the proximal stomach; Findings and interventions are described below. Findings: Larynx: Normal Esophagus: GE junction at 35 cms, small hiatal hernia 35 to 37 cms. Mildly tortous esophagus without stricture or ring. No esophagitis or Santamaria's. Stomach: Multiple 1-2 cms benign appearing polyps in the gastric fundus - one polyp removed with a cold snare Moderate diffuse gastric erythema - biopsies were obtained from the antrum. Grade 2 flap valve on retroflexed examination of the cardia. Duodenum: Normal bulb and descending duodenum Biopsies were obtained from descending duodenum to check for celiac sprue Intervention: Biopsies as noted above COLONOSCOPY PROCEDURE NOTE Instrument: Olympus PCF H 190 L variable stiffness pediatric colonoscope Monitoring: Vital signs and clinical assessment, intermittent blood pressure monitoring, continuous EKG monitoring, Pulse oximetry and Carbon Dioxide monitoring were done throughout the procedure. Please see anesthesia flowsheet. Colon withdrawl time was 12 minutes. Procedure: The patient was placed in the left lateral decubitis position and pre-procedure medications were administered. After a digital rectal examination of the ano-rectum, the video colonoscope was inserted into the rectum and advanced through the colon to the cecum. The colonoscope was slowly withdrawn in a retrograde panoramic fashion and the colon mucosa was carefully examined including a retroflexed view of the rectum. Findings and interventions are described below. Procedure Difficulty: without difficulty Findings: Terminal Ileum: Not evaluated Cecum: Normal Ascending Colon: Normal Transverse Colon: Normal Descending Colon: Normal Sigmoid Colon: A 3-4 mm sessile polyp removed with a cold bx. Moderate diverticulosis. Normal anastomosis at 15 cms Rectum: Normal Ano-rectum: Moderate internal hemorrhoids Colon preparation: Good after copious irrigation. Holland Bowel Preparation Scale Right colon; 2 Transverse colon: 2 Left colon; 2 (0 = Unprepared colon segment with mucosa not seen due to solid stool that cannot be cleared. 1 = Portion of mucosa of the colon segment seen, but other areas of the colon segment not well seen due to staining, residual stool and/or opaque liquid. 2 = Minor amount of residual staining, small fragments of stool and/or opaque liquid, but mucosa of colon segment seen well. 3 = Entire mucosa of colon segment seen well with no residual staining, small fragments of stool or opaque liquid) Impression and Post Procedure Diagnosis: Endoscopy Findings: ESOPHAGUS: Small hiatal hernia 35 to 37 cms. Mildly tortous esophagus without stricture or ring STOMACH: Mild gastritis and gastric polyps DUODENUM: Normal - biopsied to check for celiac sprue Colonoscopy Findings: One small polyp was removed Moderate diverticulosis seen in the sigmoid colon Moderate hemorrhoids on retroflexed exam. Plan: I will send a letter with biopsy results. Repeat Colonoscopy in 5 years if polyps are adenomatous and due to history of adenomatous colon polyps. Above findings were reviewed with the patient and relevant handouts were given and the discharge area. BIOPSIES SHOWED: A. Small bowel, biopsy: Small bowel mucosa with preserved villi and no specific change. B. Gastric antrum, biopsy: Gastric antral mucosa with minimal chronic inactive gastritis; negative for intestinal metaplasia and dysplasia. C. Gastric polyp: Fundic gland polyp with focal minimal chronic inactive inflammation; negative for intestinal metaplasia and dysplasia. D. Colon, sigmoid, polyp: Hyperplastic polyp. Comment: (B and C): Immunostains for H. pylori were negative Letter sent with biopsy results. Patient was placed on the colonoscopy recall list for repeat colonoscopy in 5 years. Assessment & Plan Assessment & Plan (1) GERD (gastroesophageal reflux disease): Comment: 11/13/2024 EGD- Small hiatal hernia 35 to 37 cms, Mildly torturous esophagus without stricture or ring, Fundic gland polyp, GERD, gastritis Code(s): K21.9 - Gastro-esophageal reflux disease without esophagitis Category: Medical Qualifiers: Esophagitis presence: esophagitis presence not specified Qualified Code(s): K21.9 - Gastro-esophageal reflux disease without esophagitis Plan: The patient's symptoms of dysphagia, regurgitation, and heartburn persist despite daily pantoprazole therapy. - The dysphagia may be related to her known hiatal hernia. - Plan is to continue daily pantoprazole. - Addendum to current Upper GI series order to include barium swallow to evaluate swallowing mechanics. Radiology Department to be notified. - Lifestyle modifications were recommended, including avoiding overeating, not lying down after meals, and chewing food thoroughly. - The patient will follow up one week after her imaging study to review the results. (2) Chronic constipation: Comment: 11/13/2024 colonoscopy complete with good prep after copious irrigation- 3-4 mm HP + moderate diverticulosis (sigmoid), internal hemorrhoids Code(s): K59.09 - Other constipation Category: Medical Plan: Chronic. The patient uses Miralax daily but still experiences periods of up to three days without a bowel movement. - She denies any associated abdominal pain, nausea, or blood in the stool. - The current management with Miralax is considered effective and will be continued. - The patient was advised to continue ensuring adequate fiber and water intake. (3) Bloating: Code(s): R14.0 - Abdominal distension (gaseous) Category: Medical Plan: The patient reported bloating and expressed significant anxiety about cancer risk. - Reassurance was provided that her recent EGD and colonoscopy from the prior year showed no evidence of cancer, and she currently exhibits no red flag symptoms such as blood in the stool, unexplained weight loss or changes in bowel habits. - To further investigate the bloating, a urea breath test for H. pylori will be ordered. CBC also ordered to rule out any anemia. - The patient was instructed that she would need to stop taking pantoprazole for two weeks prior to the test. She declined a bridge prescription for GERD management and during 2-week-old. - A low FODMAP diet was discussed as a potential dietary intervention to help manage bloating. - It was determined that a repeat colonoscopy is not indicated at this time Plan Follow-up after UGI or sooner as needed Time: I spent a total of 30 minutes on the date of encounter which includes: Preparing to see the patient (reviewed previous documentation, test results and medical history) Performing a medically appropriate exam and/or evaluation Ordering medications, tests, and procedures Documenting clinical information in the health record Orders: Orders H Pylori Breath Test Today K21.9 - Gastro-esophageal reflux disease without esophagitis Complete Blood Count Auto Diff Today K59.09 - Other constipation FL upper GI w air w Ba Swallow Today K21.9 - Gastro-esophageal reflux disease without esophagitis, R13.10 - Dysphagia, unspecified Coding Level of Care Code Established Pt New Pt Level 4 (73438) Patient Type Established Diagnoses Gastroesophageal reflux disease, unspecified whether esophagitis present K21.9 Esophagitis presence: esophagitis presence not specified Chronic constipation K59.09 Bloating R14.0
[2025-11-12 11:36] VITALS: BP 157/74; PULSE 55; BMI 25.3
== END 2025-11-12 12:25 | disposition home or self-care (01) ==
LOC: HO.HGI 11:27
PROVIDERS: PCP Internal Medicine; Visit Provider Nurse Practitioner Family
DX: K21.9 Gastro-esophageal reflux disease without esophagitis (principal); K59.09 Other constipation; R14.0 Abdominal distension (gaseous)
CPT/HCPCS: 99204

== ENCOUNTER → 2025-11-12 11:26 | Outpatient (BNVA) | payer MEDICARE, SELFPAY | PROVIDERS: PCP Internal Medicine; Visit Provider Nurse Practitioner Family | DX: K21.9 Gastro-esophageal reflux disease without esophagitis (principal); K59.09 Other constipation; R14.0 Abdominal distension (gaseous); R13.10 Dysphagia, unspecified | CPT/HCPCS: 99202 ==

== ENCOUNTER 2025-11-30 09:12 | Outpatient (AMB) | payer MEDICARE, SELFPAY ==
--- NOTE | 2025-11-30 09:43 | AM.OFFVISNUR ---
Intake Visit Reasons: H Pylori Intake Note: Patient presents for collection of?H Pylori?breath test. Patient has been fasting for 1 hour (nothing to eat, drink, no chewing gum or smoking) has not taken any antacid medication for at least 2 weeks and has no allergies to artificial sweeteners. 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 Allergies citalopram Allergy (Intermediate, Verified 11/12/25 11:35) hives duloxetine Allergy (Intermediate, Verified 11/12/25 11:35) nausea gabapentin Allergy (Intermediate, Verified 11/12/25 11:35) somnelence latex (LATEX) Allergy (Intermediate, Verified 11/12/25 11:35) RASH lisinopril (LISINOPRIL) Allergy (Intermediate, Verified 11/12/25 11:35) COUGH sulfamethoxazole (From BACTRIM) Allergy (Intermediate, Verified 11/12/25 11:35) RASH tramadol (TRAMADOL) Allergy (Intermediate, Verified 11/12/25 11:35) ITCHY, rash trimethoprim (From BACTRIM) Allergy (Intermediate, Verified 11/12/25 11:35) RASH sertraline Allergy (Verified 11/12/25 11:35) Hives Assessment & Plan Assessment & Plan (1) Chronic GERD: Code(s): K21.9 - Gastro-esophageal reflux disease without esophagitis Category: Medical (2) Bloating: Code(s): R14.0 - Abdominal distension (gaseous) Category: Medical Plan Patient presents for collection of?H Pylori?breath test. Patient has been fasting for 1 hour (nothing to eat, drink, no chewing gum or smoking) has not taken any antacid medication for at least 2 weeks and has no allergies to artificial sweeteners.???This test checks for an overgrowth of bacteria in your stomach. We all have bacteria but some may have more than others. It is treatable. if the test comes back negative there is nothing else to do. If the test result is positive we will treat you with 2 antibiotics and a medication to decrease the acid in your stomach (PPI) for 2 weeks. Two weeks after you have completed the treatment we will retest you to make sure the overgrowth has resolved. Patient Instructions: Process for specimen collection and reason for testing was explained to the patient. Specimen collection. Patient instructed to take a deep breath and then exhale into the blue bag, filling it up as much as possible. Patient instructed to drink a mixture of water and the artificial sweetener with a straw. A 15 minute wait period was observed. Patient instructed to take a deep breath and then exhale into the pink bag, filling it up as much as possible. Coding Level of Care Code Established Pt Est Pt Level 1 (42733) Patient Type Established Diagnoses Chronic GERD K21.9 Bloating R14.0
== END 2025-11-30 10:04 | disposition home or self-care (01) ==
LOC: HO.HGI 09:13
PROVIDERS: PCP Internal Medicine; Visit Provider Nurse Practitioner Family
DX: K21.9 Gastro-esophageal reflux disease without esophagitis (principal); R14.0 Abdominal distension (gaseous)

== ENCOUNTER 2025-11-30 09:12 | Outpatient (REF) | payer MEDICARE, SELFPAY | END 2025-11-30 09:13 | LOC: CF 09:12 | PROVIDERS: PCP Internal Medicine; Visit Provider Nurse Practitioner Family | DX: K21.9 Gastro-esophageal reflux disease without esophagitis (principal) | CPT/HCPCS: 83013; 99211 ==